=== PATIENT | female | born 1970 | race Caucasian/White ===

== ENCOUNTER 2016-05-28 22:54 | Emergency (ER) | payer SELFPAY ==
[2016-05-28] MEDS ORDERED: KETOROLAC TROMETHAMINE 60 MG/2 ML SDV IM ONE (23:16)
--- NOTE | 2016-05-28 23:24 | ER Document Report ---
HPI - HPI Patient complains to provider of: chronic hip pain Onset: Other - years Onset/Duration: Persistent, Waxing and waning Quality of pain: Achy Severity: Severe Pain Level: 5 Context: Patient presents with c/o of chronic hip pain, hurting bad today. Reports evaluated for hip fx in the past by MRI but was never told if it was fractured. Pt reports hip feels like it is locking up. Denies recent trauma. Denies f/v/d. Associated Symptoms: None Exacerbated by: Movement, Walking Relieved by: Denies Similar symptoms previously: Yes Recently seen / treated by doctor: No - REPRODUCTIVE Reproductive: DENIES: : Past Medical History - General Information source: Patient - Social History Smoking Status: Current Every Day Smoker Cigarette use (# per day): Yes - 1ppd Frequency of alcohol use: Social Drug Abuse: None Occupation: caregiver Lives with: Family Family History: Arthritis, CAD, CVA, DM, Hyperlipidemia, Hypertension, Malignancy, Thyroid Disfunction, Other - Kidney stones - Past Medical History Cardiac Medical History: Reports: Hx Hypertension Denies: Hx Congestive Heart Failure, Hx Heart Attack Pulmonary Medical History: Reports: Hx Asthma, Hx Bronchitis, Hx Pneumonia Denies: Hx COPD, Hx Tuberculosis Neurological Medical History: Reports: Hx Migraine. Denies: Hx Seizures Endocrine Medical History: Reports: Other - hypoglycemic Renal/ Medical History: Reports: Hx Kidney Stones, Hx Ovarian Cysts. Denies: Hx End Stage Renal Disease GI Medical History: Reports: Hx Diverticulitis, Hx Gastroesophageal Reflux Disease, Hx Irritable Bowel. Denies: Hx Cirrhosis, Hx Ulcer Musculoskeltal Medical History: Reports Hx Arthritis - back, Denies Hx Multiple Sclerosis, Reports Hx Musculoskeletal Trauma Skin Medical History: Reports Hx MRSA Psychiatric Medical History: Reports: Hx Anxiety, Hx Bipolar Disorder, Hx Depression, Hx Post Traumatic Stress Disorder Denies: Hx Schizophrenia Traumatic Medical History: Reports: Hx Fractures - hand Infectious Medical History: Reports: Hx MRSA Past Surgical History: Reports: Hx Abdominal Surgery, Hx Section - x 2 , Hx Cholecystectomy, Hx Dilation and Curettage, Hx Gynecologic Surgery - D & C , Hx Hysterectomy, Hx Tubal Ligation. Denies: Hx Pacemaker - Immunizations Immunizations up to date: Yes Hx Diphtheria, Pertussis, Tetanus Vaccination: Yes - 2011 Hx Pneumococcal Vaccination: 11/10/11 Vertical Provider Document - CONSTITUTIONAL Agree With Documented VS: Yes Exam Limitations: No Limitations General Appearance: WD/WN, Mild Distress - winces with hip movement - INFECTION CONTROL TRAVEL OUTSIDE OF THE [place] IN LAST 30 DAYS: No - HEENT HEENT: Atraumatic, Normocephalic - NECK Neck: Normal Inspection, Supple - RESPIRATORY Respiratory: Breath Sounds Normal, No Respiratory Distress - CARDIOVASCULAR Cardiovascular: Regular Rate - MUSCULOSKELETAL/EXTREMETIES Musculoskeletal/Extremeties: Tender - c/o right hip pain with movement, good pedal pulse, brisk cap refill - NEURO Level of Consciousness: Awake, Alert, Appropriate Motor/Sensory: No Motor Deficit - DERM Integumentary: Warm, Dry Discharge - Discharge Clinical Impression: Elevated blood pressure reading Chronic hip pain Qualifiers: Laterality: right Qualified Code(s): M25.551 - Pain in right hip Condition: Stable Disposition: HOME, SELF-CARE Instructions: Toradol Injection ([facility]), Use of [id number] Ibuprofen ([facility]) , [facility] Additional Instructions: *You have been evaluated for chronic hip pain *Take over the counter ibuprofen as indicated *Follow up with orthopedics for evaluation *Follow up with the [facility] within one week *Return to ED for worsening condition, changes, needs Forms: Elevated Blood Pressure
[2016-05-29 01:28] VITALS: BP 145/79
== END 2016-05-28 23:30 | disposition home or self-care (01) ==
LOC: ER 22:54
DX: G89.29 Other chronic pain (principal); M25.551 Pain in right hip; R03.0 Elevated blood-pressure reading, without diagnosis of hypertension; F17.210 Nicotine dependence, cigarettes, uncomplicated; I10 Essential (primary) hypertension; J45.909 Unspecified asthma, uncomplicated; Z87.442 Personal history of urinary calculi; Z86.14 Personal history of Methicillin resistant Staphylococcus aureus infection; Z90.49 Acquired absence of other specified parts of digestive tract; Z90.710 Acquired absence of both cervix and uterus
CPT/HCPCS: 99283; 96372; J1885

== ENCOUNTER 2016-06-12 14:03 | Emergency (ER) | payer SELFPAY ==
--- NOTE | 2016-06-12 14:17 | ER Document Report ---
ED Medical Screen (RME) - General Stated Complaint: BACK PAIN Notes: Patient denies recent injury. Seen in the emergency room last week for same. Complains of right hip pain that is causing her back and right lower leg to hurt. No bowel or bladder dysfunction. Patient states it feels like her right hip locks. I have greeted and performed a rapid initial assessment of this patient. A comprehensive ED assessment and evaluation of the patient, analysis of test results and completion of the medical decision making process will be conducted by additional ED providers. TRAVEL OUTSIDE OF THE [place] IN LAST 30 DAYS: No - Related Data Allergies/Adverse Reactions: cefazolin [Cefazolin] Allergy (Intermediate, Verified 06/12/16 14:16) Hives hydromorphone HCl [From Dilaudid] Allergy (Mild, Verified 06/12/16 14:16) Facial edema and rash Sulfa (Sulfonamide Antibiotics) Allergy (Mild, Verified 06/12/16 14:16) erythromycin base [Erythromycin Base] Allergy (Unknown, Verified 06/12/16 14:16) cephalexin [Cephalexin] Allergy (Verified 06/12/16 14:16) cortisone [Cortisone] Allergy (Verified 06/12/16 14:16) Penicillins Allergy (Verified 06/12/16 14:16) Past Medical History - Past Medical History Cardiac Medical History: Reports: Hx Hypertension Denies: Hx Congestive Heart Failure, Hx Heart Attack Pulmonary Medical History: Reports: Hx Asthma, Hx Bronchitis, Hx Pneumonia Denies: Hx COPD, Hx Tuberculosis Neurological Medical History: Reports: Hx Migraine. Denies: Hx Seizures Renal/ Medical History: Reports: Hx Kidney Stones, Hx Ovarian Cysts. Denies: Hx End Stage Renal Disease, Hx Peritoneal Dialysis GI Medical History: Reports: Hx Diverticulitis, Hx Gastroesophageal Reflux Disease, Hx Irritable Bowel. Denies: Hx Cirrhosis, Hx Ulcer Musculoskeltal Medical History: Reports Hx Arthritis - back, Denies Hx Multiple Sclerosis, Reports Hx Musculoskeletal Trauma Skin Medical History: Reports Hx MRSA Psychiatric Medical History: Reports: Hx Anxiety, Hx Bipolar Disorder, Hx Depression, Hx Post Traumatic Stress Disorder Denies: Hx Schizophrenia Traumatic Medical History: Reports: Hx Fractures - hand Infectious Medical History: Reports: Hx MRSA Past Surgical History: Reports: Hx Abdominal Surgery, Hx Section - x 2 , Hx Cholecystectomy, Hx Dilation and Curettage, Hx Gynecologic Surgery - D & C , Hx Hysterectomy, Hx Tubal Ligation. Denies: Hx Pacemaker - Immunizations Immunizations up to date: Yes Hx Diphtheria, Pertussis, Tetanus Vaccination: Yes - 2011 Physical Exam - Vital signs Vitals: Temp Pulse Resp BP Pulse Ox 97.8 F 90 18 144/92 H 96 06/12/16 14:07 06/12/16 14:07 06/12/16 14:07 06/12/16 14:07 06/12/16 14:07 - Back Back: Tender - lumbar area - Extremities Notes: Pain to right hip, increases with movement of leg. Course - Vital Signs Vital signs: Temp Pulse Resp BP Pulse Ox 97.8 F 90 18 144/92 H 96 06/12/16 14:07 06/12/16 14:07 06/12/16 14:07 06/12/16 14:07 06/12/16 14:07
[2016-06-12] MEDS ORDERED: KETOROLAC TROMETHAMINE 60 MG/2 ML SDV IM ONE (16:15)
[2016-06-12] MEDS ORDERED: TRAMADOL HCL 50 MG TABLET PO ONE (16:16)
[2016-06-12] MEDS ORDERED: DIPHENHYDRAMINE HCL 50 MG/ML VIAL IM ONE (16:34)
--- NOTE | 2016-06-12 16:34 | ER Document Report ---
ED Hip Pain/Injury - General Chief Complaint: Hip Pain Stated Complaint: BACK PAIN Notes: Patient is here complaining of pain in her right hip and lower back. She says that she is had back pain intermittently since she fell in the year 2013. Over the past 2-3 months, the pain has become more frequent and more painful. She says that the right hip "locks up on her and that the right leg will give way if she doesn't get her balance on that leg when she stands up to walk. She describes her entire right foot going numb and at times, both legs go numb over the past couple of months. She's been taking Tylenol and ibuprofen without pain relief. Denies any fevers. No recent injuries. She's been seen here several times in the recent couple of months, most recently about a week ago. She has not been to an orthopedic doctor for evaluation. She goes to the [facility] and is scheduled there on June 25. Patient was seen in this ED for various painful conditions 12 times in the year 2015. Several of these visits were for hip pain and back pain. TRAVEL OUTSIDE OF THE [place] IN LAST 30 DAYS: No - Related Data Allergies/Adverse Reactions: cefazolin [Cefazolin] Allergy (Intermediate, Verified 06/12/16 14:16) Hives hydromorphone HCl [From Dilaudid] Allergy (Mild, Verified 06/12/16 14:16) Facial edema and rash Sulfa (Sulfonamide Antibiotics) Allergy (Mild, Verified 06/12/16 14:16) erythromycin base [Erythromycin Base] Allergy (Unknown, Verified 06/12/16 14:16) cephalexin [Cephalexin] Allergy (Verified 06/12/16 14:16) cortisone [Cortisone] Allergy (Verified 06/12/16 14:16) Penicillins Allergy (Verified 06/12/16 14:16) Past Medical History - Social History Smoking Status: Current Every Day Smoker Chew tobacco use (# tins/day): No Frequency of alcohol use: Rare Drug Abuse: None Family History: Arthritis, CAD, CVA, DM, Hyperlipidemia, Hypertension, Malignancy, Thyroid Disfunction, Other - Kidney stones Patient has suicidal ideation: No Patient has homicidal ideation: No - Past Medical History Cardiac Medical History: Reports: Hx Hypertension Pulmonary Medical History: Reports: Hx Asthma, Hx Bronchitis, Hx Pneumonia Neurological Medical History: Reports: Hx Migraine Renal/ Medical History: Reports: Hx Kidney Stones, Hx Ovarian Cysts GI Medical History: Reports: Hx Diverticulitis, Hx Gastroesophageal Reflux Disease, Hx Irritable Bowel Musculoskeltal Medical History: Reports Hx Arthritis - back, Reports Hx Musculoskeletal Trauma Skin Medical History: Reports Hx MRSA Psychiatric Medical History: Reports: Hx Anxiety, Hx Bipolar Disorder, Hx Depression, Hx Post Traumatic Stress Disorder Traumatic Medical History: Reports: Hx Fractures - hand Infectious Medical History: Reports: Hx MRSA Past Surgical History: Reports: Hx Abdominal Surgery, Hx Section - x 2 , Hx Cholecystectomy, Hx Dilation and Curettage, Hx Gynecologic Surgery - D & C , Hx Hysterectomy, Hx Tubal Ligation - Immunizations Immunizations up to date: Yes Hx Diphtheria, Pertussis, Tetanus Vaccination: Yes - 2011 Hx Pneumococcal Vaccination: 11/10/11 Review of Systems - Review of Systems Notes: REVIEW OF SYSTEMS: CONSTITUTIONAL : Denies fever. EENT: Denies eye, ear, nose or mouth or throat pain or other symptoms. CARDIOVASCULAR: Denies chest pain. RESPIRATORY: Denies cough, chest congestion, or shortness of breath. GASTROINTESTINAL: Denies abdominal pain or nausea, vomiting, or diarrhea. GENITOURINARY: Denies difficulty or painful urinating, urinary frequency, blood in urine. MUSCULOSKELETAL: See history of present illness. SKIN: Denies rash or skin lesions. NEUROLOGICAL: Denies LOC or altered mental status. Denies headache. Denies sensory loss or motor deficits. ALL OTHER SYSTEMS REVIEWED AND NEGATIVE. Constitutional: denies: Fever Physical Exam - Vital signs Vitals: Temp Pulse Resp BP Pulse Ox 97.8 F 90 18 144/92 H 96 06/12/16 14:07 06/12/16 14:07 06/12/16 14:07 06/12/16 14:07 06/12/16 14:07 Interpretation: Normal - Notes Notes: PHYSICAL EXAMINATION: GENERAL: Well-appearing, in no acute distress. Weighs 154 kg. HEAD: Atraumatic, normocephalic. EYES: Pupils equal round and reactive to light, extraocular movements intact. ENT: oropharynx clear without exudates. Moist mucous membranes. NECK: Normal range of motion, supple. LUNGS: Breath sounds clear and equal bilaterally. HEART: Regular rate and rhythm without murmurs. ABDOMEN: Soft, nontender. No guarding or rebound. BACK: No tenderness throughout entire back. EXTREMITIES: Painful to flex and internally and externally rotate the right hip. NEUROLOGICAL: Normal speech, limping gait. Normal sensory, motor, and reflex exams. Awake, alert, and oriented x3. Cranial nerves normal. SKIN: Warm, dry, no rashes. Course - Re-evaluation Re-evalutation: 06/12/16 16:43 Patient was asked about allergies and she went through a lengthy list of medications including several antibiotics, cephalosporin, penicillin, erythromycin, sulfa, and also Dilaudid and injectable cortisone. I told her I was going to give her an injection of Toradol and she did not question that plan. About 5 minutes after receiving the injection of Toradol, she began to say that she was itching all over and started scratching all over. However, on examination, the patient does not have any wheezes of either lung field and does not have any visible rash, just redness where she has scratched. No hives are present. - Vital Signs Vital signs: Temp Pulse Resp BP Pulse Ox 97.8 F 90 18 144/92 H 96 06/12/16 14:07 06/12/16 14:07 06/12/16 14:07 06/12/16 14:07 06/12/16 14:07 - Diagnostic Test Radiology reviewed: Image reviewed, Reports reviewed - X-rays of the patient's lumbar spine and right hip show degenerative changes and other changes of arthritis. Discharge - Discharge Clinical Impression: Right hip pain, Arthritis Condition: Stable Disposition: HOME, SELF-CARE Additional Instructions: Arthritis right hip: Your symptoms are due to arthritis. Arthritis is an inflammation of the joints. There are many types -- osteoarthritis (due to "wear and tear"), auto- immmune arthritis (such as rheumatoid, lupus, Francesco's, and others), and crystal -induced arthritis (such as gout and pseudogout). The physician's examination, combined with laboratory tests, will determine the cause of your arthritis. All types of arthritis are treated with antiinflammatory medications. Other medication may be required for special types of arthritis, or if your problem does not respond to the antiinflammatory medicine. Local warmth may be helpful. Move the involved joints through the full range of motion daily. Mild exercise is usually still possible for most persons with arthritis (ask your physician). Swimming provides good exercise without damaging the joints. Contact the physician if you are worsening in any way. MUSCLE STRAIN: You have strained a muscle -- torn the fibers within the muscle. This often occurs with strenuous exertion, or during an injury that suddenly stretches the muscle. The seriousness of a strain varies. Some strains heal within days, others cause problems for months. X-rays cannot show a muscle strain. X-rays are taken only if symptoms suggest that a fracture could be present. The usual treatment of a muscle strain is rest and ice packs. Sometimes, a sling, splint, or crutches may be necessary to rest the muscle. The muscle can be used again once pain subsides. Severe strains require a special exercise and stretching program to prevent permanent stiffness and disability. Your doctor will advise you if this will be necessary. Call the doctor immediately if pain or swelling becomes severe, or if numbness or discoloration develop. LOW BACK PAIN: Three out of every four people will have an episode of disabling back pain during their lifetime. Most commonly the pain is due to straining of the muscles and ligaments in the low back. Usual treatment includes: (1) Rest on a firm surface. Avoid lying on your stomach. (2) Ice pack the painful area. After a few days, gentle heat may be used intermittently to relax the area, or ice packs can be continued. (3) Medication may be needed -- muscle relaxers and antiinflammatory medicines are commonly used. (4) As the back improves, exercises are prescribed to strengthen the back and abdominal muscles. Your doctor will advise you on the proper care for your back at each stage in your recovery. You may be better in a few days -- or healing may take several weeks. If new symptoms of a "herniated disc" (radiation of pain, numbness, or tingling down the back of the leg or weakness in the leg) occur, you should be re-examined. Further testing may be necessary. MUSCLE RELAXERS: Muscle relaxing medications are usually prescribed for acute muscle spasm or injury to the neck and back. They are often combined with antiinflammatory pain medication for increased relief. You may stop the muscle relaxer when the pain and stiffness have improved. Start the medication again if spasms recur. Muscle relaxers may cause drowsiness, especially with the first dose. Do not operate machinery or drive while under the effects of the medication. Most muscle relaxers last up to 24 hours. Do not combine the medication with alcohol. Ibuprofen Ibuprofen is an excellent, safe drug for pain control. In addition, it has potent antiinflammatory effects which are beneficial, especially in the treatment of injuries, arthritis, or tendonitis. It's best to take ibuprofen with food. Persons with ulcer disease or allergy to aspirin should notify their physician of this before taking ibuprofen. Take the medication exactly as prescribed. Don't take additional doses unless instructed to do so by your doctor. If you develop wheezing, shortness of breath, hives, faintness, stomach pain, vomiting, or dark black stools, return for re-evaluation at once. USE OF ACETAMINOPHEN (Tylenol): Acetaminophen may be taken for pain relief or fever control. It's much safer than aspirin, offering a wider range of "safe" dosages. It is safe during . Some brand names are Tylenol, Panadol, Datril, Anacin 3, Tempra, and Liquiprin. Acetaminophen can be repeated every four hours. The following are maximum recommended dosages: WEIGHT Dose Drops Elixir Chewable( 80mg) (LBS.) drprs=droppers tsp=teaspoon >89 pounds or adults 650 mg to 900 mg Acetaminophen can be repeated every four hours. Maximum dose not to exceed 4000 mg a day. These maximum recommended dosages are slightly higher than the dosages written on the product container, but these dosages are very safe and below the toxic dosage for acetaminophen. Ultram Ultram is an excellent drug for pain relief. It is not a narcotic, but it works in a similar way. Ultram can take up to two hours for full effect. Although not addicting, Ultram is best avoided in patients with a history of drug abuse. Ultram should not be used with alcohol, sleeping pills, or narcotics. If you're prone to seizures, Ultram can make you more likely to have a seizure. Ultram can be hazardous when combined with MAO-inhibitor antidepressants (such as Nardil or Parnate). Be sure your doctor is aware of all medicines you are taking. Persons with severe liver or kidney disease should increase the time between doses of Ultram. Discuss this with your doctor if you're uncertain. Side effects of Ultram can include dizziness, nausea, constipation, sleepiness, and itching. (These side effects are also seen with narcotic pain medicines.) Please call your doctor if you have other disturbing effects. FOLLOW-UP CARE: If you have been referred to a physician for follow-up care, call the physician s office for an appointment as you were instructed or within the next two days. If you experience worsening or a significant change in your symptoms, notify the physician immediately or return to the Emergency Department at any time for re-evaluation. Keep your appointment at the [facility] on June 25, and hopefully they can refer you to see an orthopedic doctor. Prescriptions: Tramadol HCl [Ultram 50 mg Tablet] 50 mg PO Q4HP PRN #15 tab PRN Reason: Methocarbamol [Robaxin 500 mg Tablet] 1,000 mg PO QID #60 tablet Referrals: [facility] [Provider Group] - 06/25/16
[2016-06-12] MEDS ORDERED: DIPHENHYDRAMINE HCL 25 MG CAPSULE PO ONE (16:36)
[2016-06-12 17:18] VITALS: BP 150/90
== END 2016-06-12 17:17 | disposition home or self-care (01) ==
LOC: ER 14:03
DX: M13.851 Other specified arthritis, right hip (principal); M25.551 Pain in right hip; M54.5 Low back pain; F17.200 Nicotine dependence, unspecified, uncomplicated
CPT/HCPCS: 99283; 96372; 73502; 72110; J1200; J1885

== ENCOUNTER 2016-07-06 20:47 | Emergency (ER) | payer SELFPAY ==
[2016-07-06 20:59] VITALS: BP 137/78
== END 2016-07-06 22:30 | disposition left against medical advice (07) ==
LOC: ER 20:47
DX: Z53.21 Procedure and treatment not carried out due to patient leaving prior to being seen by health care provider (principal)

== ENCOUNTER 2016-07-22 18:47 | Emergency (ER) | payer SELFPAY ==
[2016-07-22] MEDS ORDERED: CLINDAMYCIN HCL 150 MG CAPSULE PO ONE (19:55)
[2016-07-22] MEDS ORDERED: DEXAMETHASONE SOD PHOS INJ 10 MG/1 ML VIAL IV ONE (19:55)
[2016-07-22] MEDS ORDERED: TRAMADOL HCL 50 MG TABLET PO ONE (19:57)
--- NOTE | 2016-07-22 20:23 | ER Document Report ---
ED Oral Problem - General Chief Complaint: Sore Throat Stated Complaint: SORE THROAT,FEVER Mode of Arrival: Ambulatory Information source: Patient TRAVEL OUTSIDE OF THE [place] IN LAST 30 DAYS: No - HPI Patient complains to provider of: Sore throat Onset: This morning Notes: Patient arrives with complaints of sore throat that started this morning. She states that she's noticed some white patches in the back of her throat as well. She felt like she's had a fever. She does complain of some mild nasal congestion and cough. No nausea, vomiting, diarrhea. No difficulty breathing or swallowing. No rash. No neck stiffness. No headache, blurred vision, unilateral numbness tingling or weakness. No other complaints at this time. Pain is worse with swallowing, nothing makes it better. - Related Data Allergies/Adverse Reactions: cefazolin [Cefazolin] Allergy (Intermediate, Verified 07/22/16 19:27) Hives hydromorphone HCl [From Dilaudid] Allergy (Mild, Verified 07/22/16 19:27) Facial edema and rash Sulfa (Sulfonamide Antibiotics) Allergy (Mild, Verified 07/22/16 19:27) erythromycin base [Erythromycin Base] Allergy (Unknown, Verified 07/22/16 19:27) cephalexin [Cephalexin] Allergy (Verified 07/22/16 19:27) cortisone [Cortisone] Allergy (Verified 07/22/16 19:27) Penicillins Allergy (Verified 07/22/16 19:27) Past Medical History - Social History Smoking Status: Current Every Day Smoker Chew tobacco use (# tins/day): No Frequency of alcohol use: None Drug Abuse: None Family History: Arthritis, CAD, CVA, DM, Hyperlipidemia, Hypertension, Malignancy, Thyroid Disfunction, Other - Kidney stones - Past Medical History Cardiac Medical History: Reports: Hx Hypertension Denies: Hx Congestive Heart Failure, Hx Heart Attack Pulmonary Medical History: Reports: Hx Asthma, Hx Bronchitis, Hx Pneumonia Denies: Hx COPD, Hx Tuberculosis Neurological Medical History: Reports: Hx Migraine. Denies: Hx Seizures Renal/ Medical History: Reports: Hx Kidney Stones, Hx Ovarian Cysts. Denies: Hx End Stage Renal Disease, Hx Peritoneal Dialysis GI Medical History: Reports: Hx Diverticulitis, Hx Gastroesophageal Reflux Disease, Hx Irritable Bowel. Denies: Hx Cirrhosis, Hx Ulcer Musculoskeltal Medical History: Reports Hx Arthritis - back, Denies Hx Multiple Sclerosis, Reports Hx Musculoskeletal Trauma Skin Medical History: Reports Hx MRSA Psychiatric Medical History: Reports: Hx Anxiety, Hx Bipolar Disorder, Hx Depression, Hx Post Traumatic Stress Disorder Denies: Hx Schizophrenia Traumatic Medical History: Reports: Hx Fractures - hand Infectious Medical History: Reports: Hx MRSA Past Surgical History: Reports: Hx Abdominal Surgery, Hx Section - x 2 , Hx Cholecystectomy, Hx Dilation and Curettage, Hx Gynecologic Surgery - D & C , Hx Hysterectomy, Hx Tubal Ligation. Denies: Hx Pacemaker - Immunizations Immunizations up to date: Yes Hx Diphtheria, Pertussis, Tetanus Vaccination: Yes - 2011 Hx Pneumococcal Vaccination: 11/10/11 Review of Systems - Review of Systems -: Yes All other systems reviewed and negative Physical Exam - Vital signs Vitals: Temp Pulse Resp BP Pulse Ox 99.3 F 88 20 134/80 H 97 07/22/16 19:29 07/22/16 19:29 07/22/16 19:29 07/22/16 19:29 07/22/16 19:29 - Notes Notes: GENERAL: alert, cooperative, nontoxic, no distress. HEAD: normocephalic, atraumatic EYES: conjunctiva pink without discharge, no external redness or swelling. EARS: no external swelling, no external redness NOSE: atraumatic, no external swelling MOUTH/THROAT: mucous membranes moist and pink, posterior pharynx with erythema, exudate and a few petechiae. No trismus or drooling. NECK: soft, supple, full range of motion, no meningismus. No stridor. CHEST: no distress, lungs clear and equal throughout. No wheezing, rales, rhonchi. CARDIAC: regular rate and rhythm, no murmur, normal capillary refill, normal pulses. No peripheral edema noted. ABDOMEN: Soft, nontender. BACK: full range of motion, no CVA tenderness. EXTREMITIES: full range of motion of all extremities. No redness, no swelling. NEURO: alert and oriented x 3, no focal deficits, full range of motion of all extremities. PYSCH: appropriate mood, affect. Patient is cooperative. SKIN: pink, warm, dry, no rash. Course - Re-evaluation Re-evalutation: 07/22/16 20:23 Patient is nontoxic and stable vitals. Patient has exudative pharyngitis. She has no sign of peritonsillar abscess. She is in no distress. She swelling without significant difficulty. She will be given a dose of Decadron. She states that she is allergic to prednisone but it just makes her itchy and she was willing to try the Decadron. The patient will be given a dose of clindamycin and will be discharged home on Clinda, NSAIDs, Ultram. Follow up if not better in 3 days, sooner for increased pain, fever, difficult to breathing or swallowing, or any further concerns. The patient is noted to have elevated blood pressure during today's emergency department visit. The patient was informed of this finding. The patient was instructed that this may be related to pre-hypertension and requires further evaluation with a primary care provider. The patient has no hypertensive symptoms at this time. The patient's emergency department workup and current diagnosis were explained to the patient and or family. Follow-up instructions were provided. Medications if prescribed were discussed. Instructions for when to return to the emergency department including specific worrisome symptoms were discussed with the patient and/or family. - Vital Signs Vital signs: Temp Pulse Resp BP Pulse Ox 99.3 F 88 20 134/80 H 97 07/22/16 19:29 07/22/16 19:29 07/22/16 19:29 07/22/16 19:29 07/22/16 19:29 Discharge - Discharge Clinical Impression: Exudative pharyngitis Condition: Stable Disposition: HOME, SELF-CARE Instructions: Strep Throat ([facility]) Additional Instructions: Take medications as prescribed. Drink plenty of fluids. Follow-up if not better in 3-5 days, sooner for increased pain, fever, difficulty breathing or swallowing, or any further concerns. Your blood pressure was elevated during today's visit. Have this rechecked with your doctor. Prescriptions: Clindamycin HCl 300 mg PO QID #40 capsule Naproxen 500 mg PO BID #20 tablet Tramadol HCl [Ultram] 50 mg PO TID PRN #10 tablet PRN Reason: Forms: Elevated Blood Pressure
[2016-07-22] MEDS ORDERED: DIPHENHYDRAMINE HCL 50 MG/ML VIAL IM ONE (20:56)
[2016-07-22 21:19] VITALS: BP 134/87
== END 2016-07-22 21:17 | disposition home or self-care (01) ==
LOC: ER 18:47
DX: J02.9 Acute pharyngitis, unspecified (principal); L29.9 Pruritus, unspecified; F17.200 Nicotine dependence, unspecified, uncomplicated; Z88.2 Allergy status to sulfonamides; Z88.3 Allergy status to other anti-infective agents; Z88.0 Allergy status to penicillin; Z87.442 Personal history of urinary calculi; Z86.14 Personal history of Methicillin resistant Staphylococcus aureus infection; Z90.49 Acquired absence of other specified parts of digestive tract; Z90.710 Acquired absence of both cervix and uterus
CPT/HCPCS: 99282; 96372; 96374; J1200; J1100

== ENCOUNTER 2016-07-24 17:15 | Emergency (ER) | payer SELFPAY ==
[2016-07-24 17:30] VITALS: BP 152/89
[2016-07-24] MEDS ORDERED: IBUPROFEN 800 MG TABLET PO ONE (17:59)
--- NOTE | 2016-07-24 18:05 | ER Document Report ---
HPI - HPI Patient complains to provider of: sore throat Onset: Other Onset/Duration: Persistent Quality of pain: Burning Severity: Severe Pain Level: 5 Context: Patient diagnosed with strep throat on Saturday, is currently taking clindamycin. States she is having ear pain and sinus congestion and feels like her throat is getting worse. Associated Symptoms: Earache, Sore throat, Other - Sinus congestion. denies: Fever Exacerbated by: Denies Relieved by: Denies Similar symptoms previously: Yes Recently seen / treated by doctor: Yes - ROS ROS below otherwise negative: Yes Systems Reviewed and Negative: Yes All other systems reviewed and negative - CONSTITUTIONAL Constitutional: DENIES: Fever - EENT EENT: REPORTS: Sore Throat, Ear Pain, Congestion - NEURO Neurology: DENIES: Headache - CARDIOVASCULAR Cardiovascular: DENIES: Chest pain - RESPIRATORY Respiratory: DENIES: Trouble Breathing - GASTROINTESTINAL Gastrointestinal: DENIES: Abdominal Pain - URINARY Urinary: DENIES: Dysuria - REPRODUCTIVE LMP: n/a Reproductive: DENIES: : - MUSCULOSKELETAL Musculoskeletal: DENIES: Extremity pain - DERM Skin Color: Normal Skin Problems: None Past Medical History - General Information source: Patient - Social History Smoking Status: Current Every Day Smoker Frequency of alcohol use: Occasional Drug Abuse: None Lives with: Family Family History: Arthritis, CAD, CVA, DM, Hyperlipidemia, Hypertension, Malignancy, Thyroid Disfunction, Other - Kidney stones Patient has suicidal ideation: No Patient has homicidal ideation: No - Past Medical History Cardiac Medical History: Reports: Hx Hypertension Pulmonary Medical History: Reports: Hx Asthma, Hx Bronchitis, Hx Pneumonia Neurological Medical History: Reports: Hx Migraine Renal/ Medical History: Reports: Hx Kidney Stones, Hx Ovarian Cysts GI Medical History: Reports: Hx Diverticulitis, Hx Gastroesophageal Reflux Disease, Hx Irritable Bowel Musculoskeltal Medical History: Reports Hx Arthritis - back, Reports Hx Musculoskeletal Trauma Skin Medical History: Reports Hx MRSA Psychiatric Medical History: Reports: Hx Anxiety, Hx Bipolar Disorder, Hx Depression, Hx Post Traumatic Stress Disorder Traumatic Medical History: Reports: Hx Fractures - hand Infectious Medical History: Reports: Hx MRSA Past Surgical History: Reports: Hx Abdominal Surgery, Hx Section - x 2 , Hx Cholecystectomy, Hx Dilation and Curettage, Hx Gynecologic Surgery - D & C , Hx Hysterectomy, Hx Tubal Ligation - Immunizations Immunizations up to date: Yes Hx Diphtheria, Pertussis, Tetanus Vaccination: Yes - 2011 Hx Pneumococcal Vaccination: 11/10/11 Vertical Provider Document - CONSTITUTIONAL Agree With Documented VS: Yes Exam Limitations: No Limitations General Appearance: WD/WN, No Apparent Distress - INFECTION CONTROL TRAVEL OUTSIDE OF THE [place] IN LAST 30 DAYS: No - HEENT HEENT: Atraumatic, Normocephalic, PERRLA, Pharyngeal Exudate - Right tonsil, Pharyngeal Erythema Notes: TMs with fluid bilaterally. - NECK Neck: Normal Inspection, Supple. negative: Lymphadenopathy-Left, Lymphadenopathy-Right - RESPIRATORY Respiratory: Breath Sounds Normal, No Respiratory Distress O2 Sat by Pulse Oximetry: 96 - CARDIOVASCULAR Cardiovascular: Regular Rate, Regular Rhythm - GI/ABDOMEN Gastrointestinal: Abdomen Soft, Abdomen Non-Tender - MUSCULOSKELETAL/EXTREMETIES Musculoskeletal/Extremeties: EDY CARIAS - NEURO Level of Consciousness: Awake, Alert, Appropriate - DERM Integumentary: Warm, Dry, No Rash Course - Re-evaluation Re-evalutation: 07/24/16 18:35 X-ray soft tissue of neck negative and discussed with patient. - Vital Signs Vital signs: Temp Pulse Resp BP Pulse Ox 97.6 F 89 18 152/89 H 96 07/24/16 17:29 07/24/16 17:29 07/24/16 17:29 07/24/16 17:29 07/24/16 17:29 Discharge - Discharge Clinical Impression: Sore throat Bilateral serous otitis media Qualifiers: Chronicity: unspecified Qualified Code(s): H65.93 - Unspecified nonsuppurative otitis media, bilateral Condition: Good Disposition: HOME, SELF-CARE Additional Instructions: Continue the clindamycin that you previously prescribed Tylenol or Motrin for sore throat and ear pain. Lozenges or warm salt water gargles Appx-[id number] decongestants for fluid in the ears Follow-up with your doctor next week for recheck and return as needed
== END 2016-07-24 19:00 | disposition home or self-care (01) ==
LOC: ER 17:15
DX: J02.0 Streptococcal pharyngitis (principal); H65.93 Unspecified nonsuppurative otitis media, bilateral; I10 Essential (primary) hypertension; J45.909 Unspecified asthma, uncomplicated; F17.200 Nicotine dependence, unspecified, uncomplicated; Z86.14 Personal history of Methicillin resistant Staphylococcus aureus infection
CPT/HCPCS: 70360; 99283

== ENCOUNTER 2016-08-26 19:45 | Emergency (ER) | payer SELFPAY ==
[2016-08-26 20:16] VITALS: BP 141/83
== END 2016-08-26 22:50 | disposition left against medical advice (07) ==
LOC: ER 19:45
DX: Z53.21 Procedure and treatment not carried out due to patient leaving prior to being seen by health care provider (principal)

== ENCOUNTER 2016-08-29 11:58 | Emergency (ER) | payer SELFPAY ==
[2016-08-29 12:50] LABS: APPEARANCE,URINE CLEAR; BILIRUBIN,URINE NEGATIVE (NEGATIVE); GLUCOSE, URINE NEGATIVE (NEGATIVE); KETONES,URINE NEGATIVE (NEGATIVE); LEUKOCYTE ESTERASE,URINE NEGATIVE (NEGATIVE); NITRITE,URINE NEGATIVE (NEGATIVE); PROTEIN,URINE NEGATIVE (NEGATIVE); URINE SPECIFIC GRAVITY 1.006; UROBILINOGEN,URINE NEGATIVE mg/dL (<2.0)
--- NOTE | 2016-08-29 12:53 | ER Document Report ---
ED Medical Screen (RME) - General Chief Complaint: Flank Pain Stated Complaint: ABDOMINAL PAIN,FEVER,VOMITING Time Seen by Provider: 08/29/16 12:51 Notes: Patient is a 46-year-old female, past medical history anxiety, depression, hysterectomy, prior kidney stones, diverticulosis, presents with 1 week of worsening right lower quadrant abdominal pain. She is also having nausea, vomiting and diarrhea. No sick contacts. PE: Uncomfortable. RRR. RLQ abdominal tenderness. Normal bowel sounds. I have greeted and performed a rapid initial assessment of this patient. A comprehensive ED assessment and evaluation of the patient, analysis of test results and completion of the medical decision making process will be conducted by additional ED providers. TRAVEL OUTSIDE OF THE [place] IN LAST 30 DAYS: No - Related Data Allergies/Adverse Reactions: cefazolin [Cefazolin] Allergy (Intermediate, Verified 08/29/16 12:51) Hives hydromorphone HCl [From Dilaudid] Allergy (Mild, Verified 08/29/16 12:51) Facial edema and rash Sulfa (Sulfonamide Antibiotics) Allergy (Mild, Verified 08/29/16 12:51) erythromycin base [Erythromycin Base] Allergy (Unknown, Verified 08/29/16 12:51) cephalexin [Cephalexin] Allergy (Verified 08/29/16 12:51) cortisone [Cortisone] Allergy (Verified 08/29/16 12:51) Penicillins Allergy (Verified 08/29/16 12:51) Past Medical History - Past Medical History Cardiac Medical History: Reports: Hx Hypertension Denies: Hx Congestive Heart Failure, Hx Heart Attack Pulmonary Medical History: Reports: Hx Asthma, Hx Bronchitis, Hx Pneumonia Denies: Hx COPD, Hx Tuberculosis Neurological Medical History: Reports: Hx Migraine. Denies: Hx Seizures Renal/ Medical History: Reports: Hx Kidney Stones, Hx Ovarian Cysts. Denies: Hx End Stage Renal Disease, Hx Peritoneal Dialysis GI Medical History: Reports: Hx Diverticulitis, Hx Gastroesophageal Reflux Disease, Hx Irritable Bowel. Denies: Hx Cirrhosis, Hx Ulcer Musculoskeltal Medical History: Reports Hx Arthritis - back, Denies Hx Multiple Sclerosis, Reports Hx Musculoskeletal Trauma Skin Medical History: Reports Hx MRSA Psychiatric Medical History: Reports: Hx Anxiety, Hx Bipolar Disorder, Hx Depression, Hx Post Traumatic Stress Disorder Denies: Hx Schizophrenia Traumatic Medical History: Reports: Hx Fractures - hand Infectious Medical History: Reports: Hx MRSA Past Surgical History: Reports: Hx Abdominal Surgery, Hx Section - x 2 , Hx Cholecystectomy, Hx Dilation and Curettage, Hx Gynecologic Surgery - D & C , Hx Hysterectomy, Hx Tubal Ligation. Denies: Hx Pacemaker - Immunizations Immunizations up to date: Yes Hx Diphtheria, Pertussis, Tetanus Vaccination: Yes - 2011 Physical Exam - Vital signs Vitals: Temp Pulse Resp BP Pulse Ox 97.6 F 86 22 H 135/83 H 97 08/29/16 12:14 08/29/16 12:14 08/29/16 12:14 08/29/16 12:14 08/29/16 12:14 Course - Vital Signs Vital signs: Temp Pulse Resp BP Pulse Ox 97.6 F 86 22 H 135/83 H 97 08/29/16 12:14 08/29/16 12:14 08/29/16 12:14 08/29/16 12:14 08/29/16 12:14
[2016-08-29] MEDS ORDERED: ONDANSETRON 4 MG TAB.RAPDIS PO ONE (13:01)
[2016-08-29] MEDS ORDERED: IBUPROFEN 600 MG TABLET PO ONE (13:01)
[2016-08-29] MEDS ORDERED: HYDROCODONE/ACETAMINOPHEN 5-325 MG TABLET PO ONE (13:01)
--- NOTE | 2016-08-29 13:06 | ER Document Report ---
ED General - General Mode of Arrival: Ambulatory Information source: Patient TRAVEL OUTSIDE OF THE [place] IN LAST 30 DAYS: No - HPI Patient complains to provider of: Abdominal Pain Onset: Last week Onset/Duration: Sudden, Persistent Associated symptoms: Diarrhea, Nausea, Vomiting <CHASIDY HENRY - Last Filed: 08/29/16 14:01> <ZACKARY GUZMAN - Last Filed: 08/29/16 15:10> - General Stated Complaint: ABDOMINAL PAIN,FEVER,VOMITING Time Seen by Provider: 08/29/16 12:51 Notes: Patient is a 46-year-old female presenting to the emergency department with concerns of one week of right lower quadrant abdominal pain. Patient also admits to nausea, vomiting, diarrhea. Patient was seen here in the emergency department 3 days ago, left without being seen. Patient has been seen here 7 times in the past year for abdominal pain with nothing found, left without being seen 3 of those times. (CHASIDY HENRY) - Related Data Allergies/Adverse Reactions: cefazolin [Cefazolin] Allergy (Intermediate, Verified 08/29/16 12:51) Hives hydromorphone HCl [From Dilaudid] Allergy (Mild, Verified 08/29/16 12:51) Facial edema and rash Sulfa (Sulfonamide Antibiotics) Allergy (Mild, Verified 08/29/16 12:51) erythromycin base [Erythromycin Base] Allergy (Unknown, Verified 08/29/16 12:51) cephalexin [Cephalexin] Allergy (Verified 08/29/16 12:51) cortisone [Cortisone] Allergy (Verified 08/29/16 12:51) Penicillins Allergy (Verified 08/29/16 12:51) Past Medical History - General Information source: Patient - Social History Smoking Status: Current Every Day Smoker Chew tobacco use (# tins/day): No Frequency of alcohol use: Rare Drug Abuse: None Family History: Reviewed & Not Pertinent, Arthritis, CAD, CVA, DM, Hyperlipidemia, Hypertension, Malignancy, Thyroid Disfunction, Other - Kidney stones Patient has suicidal ideation: No Patient has homicidal ideation: No - Past Medical History Cardiac Medical History: Reports: Hx Hypertension Pulmonary Medical History: Reports: Hx Asthma, Hx Bronchitis, Hx Pneumonia Neurological Medical History: Reports: Hx Migraine Renal/ Medical History: Reports: Hx Kidney Stones, Hx Ovarian Cysts GI Medical History: Reports: Hx Diverticulitis, Hx Gastroesophageal Reflux Disease, Hx Irritable Bowel Musculoskeltal Medical History: Reports Hx Arthritis - back, Reports Hx Musculoskeletal Trauma Skin Medical History: Reports Hx MRSA Psychiatric Medical History: Reports: Hx Anxiety, Hx Bipolar Disorder, Hx Depression, Hx Post Traumatic Stress Disorder Traumatic Medical History: Reports: Hx Fractures - hand Infectious Medical History: Reports: Hx MRSA Past Surgical History: Reports: Hx Abdominal Surgery, Hx Section - x 2 , Hx Cholecystectomy, Hx Dilation and Curettage, Hx Gynecologic Surgery - D & C , Hx Hysterectomy, Hx Tubal Ligation - Immunizations Immunizations up to date: Yes Hx Diphtheria, Pertussis, Tetanus Vaccination: Yes - 2011 Hx Pneumococcal Vaccination: 11/10/11 <CHASIDY HENRY - Last Filed: 08/29/16 14:01> Review of Systems - Review of Systems Constitutional: No symptoms reported EENT: No symptoms reported Cardiovascular: No symptoms reported Respiratory: No symptoms reported Gastrointestinal: See HPI, Abdominal pain, Diarrhea, Nausea, Vomiting Genitourinary: No symptoms reported Female Genitourinary: No symptoms reported Musculoskeletal: No symptoms reported Skin: No symptoms reported Hematologic/Lymphatic: No symptoms reported Neurological/Psychological: No symptoms reported -: Yes All other systems reviewed and negative <CHASIDY HENRY - Last Filed: 08/29/16 14:01> Physical Exam - Vital signs Interpretation: Normal - General General appearance: Alert - HEENT Head: Normocephalic, Atraumatic Eyes: Normal Pupils: PERRL - Respiratory Respiratory status: No respiratory distress Chest status: Nontender Breath sounds: Normal Chest palpation: Normal - Cardiovascular Rhythm: Regular Heart sounds: Normal auscultation Murmur: No - Abdominal Inspection: Morbidly Obese Bowel sounds: Normal Tenderness: Tender - RLQ tenderness to palpation, at first patient reacted when palpating LLQ, but did not the second time palpated. - Back Back: Normal, Nontender - Extremities General upper extremity: Normal inspection, Nontender. No: Edema General lower extremity: Normal inspection, Nontender. No: Edema - Neurological Neuro grossly intact: Yes Cognition: Normal Orientation: AAOx4 Mingus Coma Scale Eye Opening: Spontaneous Mingus Coma Scale Verbal: Oriented Mingus Coma Scale Motor: Obeys Commands Esau Coma Scale Total: 15 Speech: Normal - Psychological Associated symptoms: Normal affect, Normal mood - Skin Skin Temperature: Warm Skin Moisture: Dry Skin Color: Normal <CHASIDY HENRY - Last Filed: 08/29/16 14:01> Course - Laboratory Result Diagrams: 08/29/16 12:54 08/29/16 12:54 <CHASIDY HENRY - Last Filed: 08/29/16 14:01> - Laboratory Result Diagrams: 08/29/16 12:54 08/29/16 12:54 - Diagnostic Test Radiology reviewed: Image reviewed, Reports reviewed - Noncontrast CT scan of the abdomen and pelvis does not show any abnormalities. <ZACKARY GUZMAN - Last Filed: 08/29/16 15:10> - Vital Signs Vital signs: Temp Pulse Resp BP Pulse Ox 97.6 F 86 22 H 135/83 H 97 08/29/16 12:14 08/29/16 12:14 08/29/16 12:14 08/29/16 12:14 08/29/16 12:14 - Laboratory Laboratory results interpreted by me: 08/29/16 12:54 Potassium 5.1 H Discharge <NEHEMIAS HENRYICA - Last Filed: 08/29/16 14:01> <MEGANZACKARY - Last Filed: 08/29/16 15:10> - Discharge Clinical Impression: Abdominal pain Qualifiers: Abdominal location: right lower quadrant Qualified Code(s): R10.31 - Right lower quadrant pain Condition: Stable Disposition: HOME, SELF-CARE Additional Instructions: Abdominal Pain: There are many causes of abdominal pain. Pain can mean a serious problem requiring surgery (such as appendicitis). It can also be an innocent problem that goes away on its own (such as a viral infection). Often, time must pass to determine the cause of pain. The physician does not feel that hospitalization is necessary, at present. Things may change within the next 24 hours. Call the doctor or come back for re- examination if any problems occur, such as: (1) Pain that becomes more severe, steady, or becomes concentrated in one specific area. Also, pain that is more severe with movement or coughing. (2) Vomiting that persists or becomes more frequent. (3) Blood in the vomitus, urine, or bowel movements. Blood in the stool may have a tarry or black appearance. (4) Shaking chills or fever greater than 100 degrees F. (5) The abdomen becomes more distended or swollen. (6) Bowel movements cease. (7) Failure to improve as expected. //////////////////////////////////////////////////////////////////////////////// /////////////////////////////////////////////////////////// There was no clear explanation for your abdominal pain found today. Stay on clear liquids today and rest the intestines. Take Tylenol for pain if needed. Follow-up with a local medical doctor if not improving. RETURN TO THE EMERGENCY ROOM IF ANY NEW OR WORSENING SYMPTOMS. Stella Attestation: 08/29/16 15:10 I personally performed the services described in the documentation, reviewed and edited the documentation which was dictated to the scribe in my presence, and it accurately records my words and actions. (ZACKARY GUZMAN) Scribe Documentation - Scribe Written by Stella:: Stella Desai, 08/29/2016 [id number] acting as scribe for :: Megan <CHASIDY HENRY - Last Filed: 08/29/16 14:01>
[2016-08-29 13:13] LABS: ABSOLUTE BASOPHILS # (AUTO) 0.1 10^3/uL (0.0-0.2); ABSOLUTE EOSINOPHILS # (AUTO) 0.2 10^3/uL (0.0-0.6); ABSOLUTE LYMPHOCYTES (AUTO) 2.9 10^3/uL (0.5-4.7); ABSOLUTE MONOCYTES (AUTO) 0.5 10^3/uL (0.1-1.4); ABSOLUTE NEUT (AUTO) 5.1 10^3/uL (1.7-8.2); BASOPHILS % (AUTO) 0.7 % (0-2); EOSINOPHILS % (AUTO) 2.7 % (0-6); HEMATOCRIT 45.5 % (36.0-47.0); HEMOGLOBIN 15.2 g/dL (12.0-15.5); HGB HCT DIFFERENCE 0.1; LYMPHOCYTES % (AUTO) 33.2 % (13-45); MEAN CORPUSCULAR HEMOGLOBIN 29.8 pg (27.0-33.4); MEAN CORPUSCULAR HGB CONC 33.4 g/dL (32.0-36.0); MEAN CORPUSCULAR VOLUME 89 fl (80-97); MONOCYTES % (AUTO) 5.5 % (3-13); RED BLOOD COUNT 5.09 10^6/uL (3.72-5.28); RED CELL DISTRIBUTION WIDTH 13.3 % (11.5-14.0); SEGMENTED NEUTROPHILS % (AUTO) 57.9 % (42-78); WHITE BLOOD COUNT 8.9 10^3/uL (4.0-10.5)
[2016-08-29 13:31] LABS: BLOOD UREA NITROGEN 12 mg/dL (7-20); CALCIUM 10.1 mg/dL (8.4-10.2); CREATININE RESULT 0.88 mg/dL (0.52-1.25); GLUCOSE 87 mg/dL (75-110)
[2016-08-29 13:32] LABS: ALANINE AMINOTRANSFERASE 43 U/L (9-52); ALBUMIN 4.5 g/dL (3.5-5.0); ALKALINE PHOSPHATASE 48 U/L (38-126); ANION GAP 12 (5-19); ASPARTATE AMINO TRANSFERASE 31 U/L (14-36); BILIRUBIN,DIRECT 0.3 mg/dL (0.0-0.4); BILIRUBIN,TOTAL 0.5 mg/dL (0.2-1.3); CARBON DIOXIDE 26 mmol/L (22-30); CHLORIDE 105 mmol/L (98-107); CREATINE KINASE 104 U/L (30-135); LIPASE 46.7 U/L (23-300); POTASSIUM 5.1 mmol/L (3.6-5.0); SODIUM 142.6 mmol/L (137-145); TOTAL PROTEIN 8.2 g/dL (6.3-8.2)
--- NOTE | 2016-08-29 14:57 | RADIOLOGY REPORT (SQ) ---
EXAM DESCRIPTION: CT LTD RENAL STONE PROTOCOL ON COMPLETED DATE/TIME: 08/29/2016 2:48 pm REASON FOR STUDY: RLQ abd pain COMPARISON: 08/02/2014 TECHNIQUE: CT scan of the abdomen and pelvis performed without intravenous or oral contrast. Images reviewed with lung, soft tissue, and bone windows. Reconstructed coronal and sagittal MPR images revi ewed. All images stored on PACS. All CT scanners at this facility use dose modulation, iterative reconstruction, and/or weight based d osing when appropriate to reduce radiation dose to as low as reasonably achievable (ALARA). [facility]: Dose Right [facility]: CareDose [facility]: Dose Right [facility]: Teradose 4D [facility]: [employer] RADIATION DOSE: 19.22mGy. LIMITATIONS: None. FINDINGS: LOWER CHEST: No significant findings. No nodules or infiltrates. NON-CONTRASTED LIVER, SPLEEN, ADRENALS: Evaluation limited by lack of IV contrast. No identified sign ificant masses. PANCREAS: No masses. No peripancreatic inflammatory changes. GALLBLADDER: Surgically absent. RIGHT KIDNEY AND URETER: No suspicious masses. Assessment limited by lack of IV contrast. No signif icant calcifications. No hydronephrosis or hydroureter. LEFT KIDNEY AND URETER: No suspicious masses. Assessment limited by lack of IV contrast. No signifi cant calcifications. No hydronephrosis or hydroureter. AORTA AND RETROPERITONEUM: No aneurysm. No retroperitoneal masses or adenopathy. BOWEL AND PERITONEAL CAVITY: Sigmoid diverticulosis. No obvious masses or inflammatory changes. No f ree fluid. APPENDIX: Normal. PELVIS, BLADDER, AND ABDOMINAL WALL:No abnormal masses. No free fluid. Bladder normal. BONES: No significant findings. OTHER: No other significant finding. IMPRESSION: No acute findings in the abdomen or pelvis. TECHNICAL DOCUMENTATION: JOB ID: [id number] Quality ID # [id number]: Final reports with documentation of one or more dose reduction techniques (e.g., Au tomated exposure control, adjustment of the mA and/or kV according to patient size, use of iterative reconstruction technique) 2010 [employer]- All Rights Reserved
[2016-08-29 15:18] VITALS: BP 128/85
== END 2016-08-29 15:15 | disposition home or self-care (01) ==
LOC: ER 11:58
DX: R10.31 Right lower quadrant pain (principal); R11.2 Nausea with vomiting, unspecified; R19.7 Diarrhea, unspecified; I10 Essential (primary) hypertension; J45.909 Unspecified asthma, uncomplicated; F17.200 Nicotine dependence, unspecified, uncomplicated; Z88.5 Allergy status to narcotic agent; Z88.2 Allergy status to sulfonamides; Z88.1 Allergy status to other antibiotic agents; Z88.8 Allergy status to other drugs, medicaments and biological substances; Z87.442 Personal history of urinary calculi; Z87.19 Personal history of other diseases of the digestive system; Z86.14 Personal history of Methicillin resistant Staphylococcus aureus infection; Z90.49 Acquired absence of other specified parts of digestive tract; Z90.710 Acquired absence of both cervix and uterus; Z98.51 Tubal ligation status
CPT/HCPCS: 99284; 36415; 82550; 83690; 85025; 80053; 81001; 76380; S0119

== ENCOUNTER 2016-09-16 20:01 | Emergency (ER) | payer SELFPAY ==
--- NOTE | 2016-09-16 20:33 | ER Document Report ---
ED Medical Screen (RME) - General Chief Complaint: Depression, SI Stated Complaint: POSSIBLE DEPRESSION Time Seen by Provider: 09/16/16 20:30 Mode of Arrival: Ambulatory Information source: Patient Notes: history of depression, not taken any meds in over a year due to finances, was taken prozac, trazodone, and xanax. Just wants to go sleep and never wake up, history of suicide attempts. very tearful. TRAVEL OUTSIDE OF THE [place] IN LAST 30 DAYS: No - Related Data Allergies/Adverse Reactions: cefazolin [Cefazolin] Allergy (Intermediate, Verified 08/29/16 12:51) Hives hydromorphone HCl [From Dilaudid] Allergy (Mild, Verified 08/29/16 12:51) Facial edema and rash Sulfa (Sulfonamide Antibiotics) Allergy (Mild, Verified 08/29/16 12:51) erythromycin base [Erythromycin Base] Allergy (Unknown, Verified 08/29/16 12:51) cephalexin [Cephalexin] Allergy (Verified 08/29/16 12:51) cortisone [Cortisone] Allergy (Verified 08/29/16 12:51) Penicillins Allergy (Verified 08/29/16 12:51) Past Medical History - Past Medical History Cardiac Medical History: Reports: Hx Hypertension Denies: Hx Congestive Heart Failure, Hx Heart Attack Pulmonary Medical History: Reports: Hx Asthma, Hx Bronchitis, Hx Pneumonia Denies: Hx COPD, Hx Tuberculosis Neurological Medical History: Reports: Hx Migraine. Denies: Hx Seizures Renal/ Medical History: Reports: Hx Kidney Stones, Hx Ovarian Cysts. Denies: Hx End Stage Renal Disease, Hx Peritoneal Dialysis GI Medical History: Reports: Hx Diverticulitis, Hx Gastroesophageal Reflux Disease, Hx Irritable Bowel. Denies: Hx Cirrhosis, Hx Ulcer Musculoskeltal Medical History: Reports Hx Arthritis - back, Denies Hx Multiple Sclerosis, Reports Hx Musculoskeletal Trauma Skin Medical History: Reports Hx MRSA Psychiatric Medical History: Reports: Hx Anxiety, Hx Bipolar Disorder, Hx Depression, Hx Post Traumatic Stress Disorder Denies: Hx Schizophrenia Traumatic Medical History: Reports: Hx Fractures - hand Infectious Medical History: Reports: Hx MRSA Past Surgical History: Reports: Hx Abdominal Surgery, Hx Section - x 2 , Hx Cholecystectomy, Hx Dilation and Curettage, Hx Gynecologic Surgery - D & C , Hx Hysterectomy, Hx Tubal Ligation. Denies: Hx Pacemaker - Immunizations Immunizations up to date: Yes Hx Diphtheria, Pertussis, Tetanus Vaccination: Yes - 2011 Physical Exam - Vital signs Vitals: Temp Pulse Resp BP Pulse Ox 98.0 F 103 H 20 139/85 H 97 09/16/16 20:22 09/16/16 20:22 09/16/16 20:22 09/16/16 20:22 09/16/16 20:22 Course - Vital Signs Vital signs: Temp Pulse Resp BP Pulse Ox 98.0 F 103 H 20 139/85 H 97 09/16/16 20:22 09/16/16 20:22 09/16/16 20:22 09/16/16 20:22 09/16/16 20:22
[2016-09-16 20:52] LABS: ABSOLUTE BASOPHILS # (AUTO) 0.1 10^3/uL (0.0-0.2); ABSOLUTE EOSINOPHILS # (AUTO) 0.4 10^3/uL (0.0-0.6); ABSOLUTE LYMPHOCYTES (AUTO) 3.8 10^3/uL (0.5-4.7); ABSOLUTE MONOCYTES (AUTO) 0.7 10^3/uL (0.1-1.4); ABSOLUTE NEUT (AUTO) 6.4 10^3/uL (1.7-8.2); BASOPHILS % (AUTO) 1.1 % (0-2); EOSINOPHILS % (AUTO) 3.6 % (0-6); HEMATOCRIT 47.6 % (36.0-47.0); HGB HCT DIFFERENCE 0.4; LYMPHOCYTES % (AUTO) 33.4 % (13-45); MEAN CORPUSCULAR HEMOGLOBIN 29.9 pg (27.0-33.4); MEAN CORPUSCULAR HGB CONC 33.7 g/dL (32.0-36.0); MEAN CORPUSCULAR VOLUME 89 fl (80-97); RED BLOOD COUNT 5.37 10^6/uL (3.72-5.28); RED CELL DISTRIBUTION WIDTH 13.5 % (11.5-14.0); SEGMENTED NEUTROPHILS % (AUTO) 55.9 % (42-78); WHITE BLOOD COUNT 11.5 10^3/uL (4.0-10.5)
[2016-09-16 21:05] LABS: ALANINE AMINOTRANSFERASE 37 U/L (9-52); ALBUMIN 4.1 g/dL (3.5-5.0); ALKALINE PHOSPHATASE 43 U/L (38-126); ANION GAP 12 (5-19); ASPARTATE AMINO TRANSFERASE 23 U/L (14-36); BILIRUBIN,DIRECT 0.3 mg/dL (0.0-0.4); BILIRUBIN,TOTAL 0.5 mg/dL (0.2-1.3); BLOOD UREA NITROGEN 13 mg/dL (7-20); CALCIUM 9.1 mg/dL (8.4-10.2); CARBON DIOXIDE 24 mmol/L (22-30); CHLORIDE 106 mmol/L (98-107); CREATININE RESULT 1.19 mg/dL (0.52-1.25); GLUCOSE 89 mg/dL (75-110); POTASSIUM 4.5 mmol/L (3.6-5.0); SODIUM 141.7 mmol/L (137-145); TOTAL PROTEIN 7.6 g/dL (6.3-8.2)
[2016-09-16 21:06] LABS: ALCOHOL < 10 mg/dL (NONE DETECTED)
--- NOTE | 2016-09-16 21:11 | ER Document Report ---
ED General - General Chief Complaint: Depression, SI Stated Complaint: POSSIBLE DEPRESSION Time Seen by Provider: 09/16/16 20:30 Mode of Arrival: Ambulatory Information source: Patient Notes: Patient presents emergency department very tearful. Patient reports her depression is really bad she just wants to go sleep and not wake up. She reports history of taking medications for depression to include Prozac trazodone and xanax. She is unable to afford her medications for the past year. She reports history of suicide attempt. She reports she is just so low today she cannot quit crying. Reports sad feelings have been coming on for a while but it was really bad today. Patient reports that she is not suicidal. Reports she does not have a plan. She has her and her best friend at her side. They both report that they would stay with patient until she is seen [facility] tomorrow. TRAVEL OUTSIDE OF THE [place] IN LAST 30 DAYS: No - HPI Onset: Last week Quality of pain: Achy - chronic hip pain Pain Level: 5 - emotional Associated symptoms: None Exacerbated by: Denies Relieved by: Denies Similar symptoms previously: Yes Recently seen / treated by doctor: No - Related Data Allergies/Adverse Reactions: cefazolin [Cefazolin] Allergy (Intermediate, Verified 08/29/16 12:51) Hives hydromorphone HCl [From Dilaudid] Allergy (Mild, Verified 08/29/16 12:51) Facial edema and rash Sulfa (Sulfonamide Antibiotics) Allergy (Mild, Verified 08/29/16 12:51) erythromycin base [Erythromycin Base] Allergy (Unknown, Verified 08/29/16 12:51) cephalexin [Cephalexin] Allergy (Verified 08/29/16 12:51) cortisone [Cortisone] Allergy (Verified 08/29/16 12:51) Penicillins Allergy (Verified 08/29/16 12:51) Past Medical History - General Information source: Patient Last Menstrual Period: hyst - Social History Smoking Status: Current Every Day Smoker Cigarette use (# per day): Yes Frequency of alcohol use: Rare Drug Abuse: None Lives with: Family Family History: Reviewed & Not Pertinent, Arthritis, CAD, CVA, DM, Hyperlipidemia, Hypertension, Malignancy, Thyroid Disfunction, Other - Kidney stones Patient has suicidal ideation: Yes Patient has homicidal ideation: No - Past Medical History Cardiac Medical History: Reports: Hx Hypertension Denies: Hx Congestive Heart Failure, Hx Heart Attack Pulmonary Medical History: Reports: Hx Asthma, Hx Bronchitis, Hx Pneumonia Denies: Hx COPD, Hx Tuberculosis Neurological Medical History: Reports: Hx Migraine. Denies: Hx Seizures Renal/ Medical History: Reports: Hx Kidney Stones, Hx Ovarian Cysts. Denies: Hx End Stage Renal Disease, Hx Peritoneal Dialysis GI Medical History: Reports: Hx Diverticulitis, Hx Gastroesophageal Reflux Disease, Hx Irritable Bowel. Denies: Hx Cirrhosis, Hx Ulcer Musculoskeltal Medical History: Reports Hx Arthritis - back, Denies Hx Multiple Sclerosis, Reports Hx Musculoskeletal Trauma Skin Medical History: Reports Hx MRSA Psychiatric Medical History: Reports: Hx Anxiety, Hx Bipolar Disorder, Hx Depression, Hx Post Traumatic Stress Disorder Denies: Hx Schizophrenia Traumatic Medical History: Reports: Hx Fractures - hand Infectious Medical History: Reports: Hx MRSA Past Surgical History: Reports: Hx Abdominal Surgery, Hx Section - x 2 , Hx Cholecystectomy, Hx Dilation and Curettage, Hx Gynecologic Surgery - D & C , Hx Hysterectomy, Hx Tubal Ligation. Denies: Hx Pacemaker - Immunizations Immunizations up to date: Yes Hx Diphtheria, Pertussis, Tetanus Vaccination: Yes - 2011 Hx Pneumococcal Vaccination: 11/10/11 Review of Systems - Review of Systems Notes: Review HPI for review of systems., All other systems negative Physical Exam - Vital signs Vitals: Temp Pulse Resp BP Pulse Ox 98.0 F 103 H 20 139/85 H 97 09/16/16 20:22 09/16/16 20:22 09/16/16 20:22 09/16/16 20:22 09/16/16 20:22 - Notes Notes: PHYSICAL EXAMINATION: GENERAL: Well-appearing tearful, nontoxic looking HEAD: Atraumatic, normocephalic. EYES: Pupils equal round extraocular movements intact, sclera anicteric, conjunctiva are normal. ENT: nares patent, Moist mucous membranes. NECK: Normal range of motion, supple without lymphadenopathy LUNGS: CTAB and equal. No wheezes rales or rhonchi. HEART: Regular rate and rhythm without murmurs ABDOMEN: Soft, no tenderness. No guarding, no rebound EXTREMITIES: Normal range of motion, no pitting edema. NEUROLOGICAL: Cranial nerves grossly intact. Normal sensory/motor exams. PSYCH: Normal mood, normal affect. SKIN: Warm, Dry, normal turgor, no rashes or lesions noted Course - Re-evaluation Re-evalutation: 09/16/16 21:27 Feel patient is safe to go home. She denies suicide ideations, does not have a plan. Is wanting to get back on her medications. Patients and best friend will be staying with her. She denies suicidal ideations. Consulted Dr Parham per apc guidelines and he agrees with plan. - Vital Signs Vital signs: Temp Pulse Resp BP Pulse Ox 98.4 F 88 20 169/89 H 99 09/16/16 21:15 09/16/16 21:15 09/16/16 21:15 09/16/16 21:15 09/16/16 21:15 - Laboratory Result Diagrams: 09/16/16 20:42 09/16/16 20:42 Laboratory results interpreted by me: 09/16/16 09/16/16 20:42 20:42 WBC 11.5 H RBC 5.37 H Hgb 16.0 H Hct 47.6 H Est GFR ( Amer) 59 L Est GFR (Non-Af Amer) 49 L Salicylates < 1.0 L Acetaminophen < 10 L - EKG Interpretation by Me EKG shows normal: Sinus rhythm Discharge - Discharge Clinical Impression: Elevated blood pressure reading Depression Qualifiers: Depression Type: unspecified Qualified Code(s): F32.9 - Major depressive disorder, single episode, unspecified Condition: Stable Disposition: HOME, SELF-CARE Instructions: Depression (OM), Antidepressants (OM) Additional Instructions: *You have been evaluated for depression *Take medication as prescribed *Follow up with [facility] tomorrow *Return to ED for worsening condition, changes, needs Prescriptions: Trazodone HCl 100 mg PO QHS #3 tablet Forms: Elevated Blood Pressure Referrals: [facility] [Provider Group] - Follow up tomorrow
[2016-09-16] MEDS ORDERED: TRAZODONE HCL 50 MG TABLET PO ONE (21:37)
[2016-09-16 22:13] VITALS: BP 169/89
--- NOTE | 2016-09-16 22:42 | EKG REPORT ---
SEVERITY:- BORDERLINE ECG - SINUS RHYTHM CONSIDER ANTERIOR INFARCT : Confirmed by: Robert Juárez 16-Sep-2016 22:41:42
== END 2016-09-16 21:15 | disposition home or self-care (01) ==
LOC: ER 20:01
DX: F32.9 Major depressive disorder, single episode, unspecified (principal); T43.216A Underdosing of selective serotonin and norepinephrine reuptake inhibitors, initial encounter; T42.4X6A Underdosing of benzodiazepines, initial encounter; Z91.120 Patient's intentional underdosing of medication regimen due to financial hardship; F41.9 Anxiety disorder, unspecified; I10 Essential (primary) hypertension; M25.559 Pain in unspecified hip; G89.29 Other chronic pain; J45.909 Unspecified asthma, uncomplicated; F17.210 Nicotine dependence, cigarettes, uncomplicated; Z88.5 Allergy status to narcotic agent; Z88.2 Allergy status to sulfonamides; Z88.1 Allergy status to other antibiotic agents; Z88.0 Allergy status to penicillin; Z88.8 Allergy status to other drugs, medicaments and biological substances; Z86.14 Personal history of Methicillin resistant Staphylococcus aureus infection; Z91.5 Personal history of self-harm
CPT/HCPCS: 36415; 80053; 80307; 85025; 93005; 93010; 99284

== ENCOUNTER 2016-09-20 14:18 | Emergency (ER) | payer SELFPAY ==
--- NOTE | 2016-09-20 14:44 | ER Document Report ---
ED General - General Chief Complaint: Depression Stated Complaint: IVC Time Seen by Provider: 09/20/16 14:28 TRAVEL OUTSIDE OF THE [place] IN LAST 30 DAYS: No - HPI Patient complains to provider of: Depression suicidal ideation Notes: Patient coming in for evaluation of depression. Patient has recently seen in the ER and prescribed trazodone that she has recently not been able to take any of her previously prescribed psychiatric medications for her depression. Patient did go to [facility] today however missed her appointment. Patient came into the ER after being referred by her therapist. 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 Patient states severe depression with no specific trigger. Denies fevers chills nausea vomiting diarrhea. - Related Data Allergies/Adverse Reactions: cefazolin [Cefazolin] Allergy (Intermediate, Verified 09/20/16 14:22) Hives hydromorphone HCl [From Dilaudid] Allergy (Mild, Verified 09/20/16 14:22) Facial edema and rash Sulfa (Sulfonamide Antibiotics) Allergy (Mild, Verified 09/20/16 14:22) erythromycin base [Erythromycin Base] Allergy (Unknown, Verified 09/20/16 14:22) cephalexin [Cephalexin] Allergy (Verified 09/20/16 14:22) cortisone [Cortisone] Allergy (Verified 09/20/16 14:22) Penicillins Allergy (Verified 09/20/16 14:22) Past Medical History - Social History Smoking Status: Current Every Day Smoker Chew tobacco use (# tins/day): No Frequency of alcohol use: Rare Drug Abuse: None Family History: Reviewed & Not Pertinent, Arthritis, CAD, CVA, DM, Hyperlipidemia, Hypertension, Malignancy, Thyroid Disfunction, Other - Kidney stones Patient has suicidal ideation: Yes Patient has homicidal ideation: Yes - Past Medical History Cardiac Medical History: Reports: Hx Hypertension Denies: Hx Congestive Heart Failure, Hx Heart Attack Pulmonary Medical History: Reports: Hx Asthma, Hx Bronchitis, Hx Pneumonia Denies: Hx COPD, Hx Tuberculosis Neurological Medical History: Reports: Hx Migraine. Denies: Hx Seizures Renal/ Medical History: Reports: Hx Kidney Stones, Hx Ovarian Cysts. Denies: Hx End Stage Renal Disease, Hx Peritoneal Dialysis GI Medical History: Reports: Hx Diverticulitis, Hx Gastroesophageal Reflux Disease, Hx Irritable Bowel. Denies: Hx Cirrhosis, Hx Ulcer Musculoskeltal Medical History: Reports Hx Arthritis - back, Denies Hx Multiple Sclerosis, Reports Hx Musculoskeletal Trauma Skin Medical History: Reports Hx MRSA Psychiatric Medical History: Reports: Hx Anxiety, Hx Bipolar Disorder, Hx Depression, Hx Post Traumatic Stress Disorder Denies: Hx Schizophrenia Traumatic Medical History: Reports: Hx Fractures - hand Infectious Medical History: Reports: Hx MRSA Past Surgical History: Reports: Hx Abdominal Surgery, Hx Section - x 2 , Hx Cholecystectomy, Hx Dilation and Curettage, Hx Gynecologic Surgery - D & C , Hx Hysterectomy, Hx Tubal Ligation. Denies: Hx Pacemaker - Immunizations Immunizations up to date: Yes Hx Diphtheria, Pertussis, Tetanus Vaccination: Yes - 2011 Hx Pneumococcal Vaccination: 11/10/11 Review of Systems - Review of Systems Constitutional: No symptoms reported EENT: No symptoms reported Cardiovascular: No symptoms reported Respiratory: No symptoms reported Gastrointestinal: No symptoms reported Genitourinary: No symptoms reported Female Genitourinary: No symptoms reported Musculoskeletal: No symptoms reported Skin: No symptoms reported Hematologic/Lymphatic: No symptoms reported Neurological/Psychological: Depression, Suicidal ideation -: Yes All other systems reviewed and negative Physical Exam - Vital signs Vitals: Temp Pulse Resp BP Pulse Ox 98.2 F 110 H 18 148/84 H 97 09/20/16 14:22 09/20/16 14:22 09/20/16 14:22 09/20/16 14:22 09/20/16 14:22 Interpretation: Normal - General General appearance: Appears well, Alert - HEENT Head: Normocephalic, Atraumatic Eyes: Normal Pupils: PERRL - Respiratory Respiratory status: No respiratory distress Chest status: Nontender Breath sounds: Normal Chest palpation: Normal - Cardiovascular Rhythm: Regular Heart sounds: Normal auscultation Murmur: No - Abdominal Inspection: Normal Distension: No distension Bowel sounds: Normal Tenderness: Nontender Organomegaly: No organomegaly - Back Back: Normal, Nontender - Extremities General upper extremity: Normal inspection, Nontender, Normal color, Normal ROM , Normal temperature General lower extremity: Normal inspection, Nontender, Normal color, Normal ROM , Normal temperature, Normal weight bearing. No: Louie's sign - Neurological Neuro grossly intact: Yes Cognition: Normal Orientation: AAOx4 Esau Coma Scale Eye Opening: Spontaneous Esau Coma Scale Verbal: Oriented [place] Coma Scale Motor: Obeys Commands Esau Coma Scale Total: 15 Speech: Normal Motor strength normal: LUE, RUE, LLE, RLE Sensory: Normal - Psychological Associated symptoms: Flat affect, Tearful - Skin Skin Temperature: Warm Skin Moisture: Dry Skin Color: Normal Course - Re-evaluation Re-evalutation: 09/20/16 18:19 Patient's lab work does not show any critical etiology for worse symptoms no medical pathology. Patient upon initial evaluation does not have any intent or plan has a long-standing history of suicidal ideation therefore initial impression the patient more likely could be discharged home follow-up with her outpatient psychiatric resources. We were able to confirm the patient did miss her appointment today also confirmed with her therapist that although depressed did not think she would be a harm to herself. Patient states that the psychiatric outpatient resources referred her to the ER for commitment. Upon or psychiatric team evaluation patient still did not have any suicidal plan just chronic suicidal ideation. Upon my reevaluation just prior to discharge with discharge papers in hand and prescription for medication patient states she now has a plan very specific stating that she would go to recall the obtain her 22 caliber pistol and shot herself in the head. Patient printed bedside confirms guns in the household. Patient will be now placed on IVC paperwork as I do think that she does meet criteria now patient can be reevaluated in the morning. 09/20/16 18:25 - Vital Signs Vital signs: Temp Pulse Resp BP Pulse Ox 98.2 F 110 H 18 148/84 H 97 09/20/16 14:22 09/20/16 14:22 09/20/16 14:22 09/20/16 14:22 09/20/16 14:22 - Laboratory Result Diagrams: 09/20/16 14:35 09/20/16 14:35 Laboratory results interpreted by me: 09/20/16 14:35 Glucose 128 H Salicylates < 1.0 L Acetaminophen < 10 L Discharge - Discharge Clinical Impression: Depressive disorder, Anxiety, Suicidal ideations Condition: Stable Disposition: PSYCH HOSP/UNIT Additional Instructions: DEPRESSION: Your evaluation reveals that you have mental depression. While symptoms may be vague, they often include disturbance of sleep, fatigue, loss of appetite , and general loss of interest in life. While depression may be a side effect of drugs, or a reaction to a major change in your life, many cases have no known cause. If depression is acute, and related to a major loss in your life, you can expect it to clear completely with time. If you have been depressed a long time , are prone to repeated bouts of depression or low mood, or have been thinking of suicide, get help. Depression can be treated with anti-depressant medication and counselling. Long-term depression will often take a few weeks to clear, even with appropriate medication. Follow-up care is important. SUICIDAL IDEATION: Suicidal ideation is a common medical term for thoughts about suicide, which may be as detailed as a formulated plan, without the suicidal act itself. Although most people who undergo suicidal ideation do not commit suicide, some go on to make suicide attempts. The range of suicidal ideation varies greatly from fleeting to detailed planning, role playing, and unsuccessful attempts. While thoughts about suicide are common, most people do not carry out serious actions to commit suicide. Based upon your evaluation and discussion with you, we do not believe you are currently at risk to act upon your thoughts of suicide. You have agreed to return to the Emergency Department, at any time , if you feel inclined to act upon your suicidal thoughts. FOLLOW-UP CARE: Follow-up with [facility] on mental health treatment on your previously scheduled October 01 appointment. If you experience worsening or a significant change in your symptoms, notify the physician immediately or return to the Emergency Department at any time for re-evaluation. Prescriptions: Buspirone HCl [Buspar 10 mg Tablet] 10 mg PO BID 14 Days Referrals: [facility] [Provider Group] - 10/01/16 [facility] [Primary Care Provider] - Follow up as needed
[2016-09-20] MEDS ORDERED: NICOTINE 14 MG/24 HR PATCH.TD24 TD ONE (14:54)
[2016-09-20 15:21] LABS: ABSOLUTE BASOPHILS # (AUTO) 0.1 10^3/uL (0.0-0.2); ABSOLUTE EOSINOPHILS # (AUTO) 0.2 10^3/uL (0.0-0.6); ABSOLUTE LYMPHOCYTES (AUTO) 2.7 10^3/uL (0.5-4.7); ABSOLUTE MONOCYTES (AUTO) 0.4 10^3/uL (0.1-1.4); ABSOLUTE NEUT (AUTO) 5.4 10^3/uL (1.7-8.2); BASOPHILS % (AUTO) 0.8 % (0-2); EOSINOPHILS % (AUTO) 2.3 % (0-6); HEMATOCRIT 41.5 % (36.0-47.0); HEMOGLOBIN 14.2 g/dL (12.0-15.5); HGB HCT DIFFERENCE 1.1; MEAN CORPUSCULAR HEMOGLOBIN 30.2 pg (27.0-33.4); MEAN CORPUSCULAR HGB CONC 34.2 g/dL (32.0-36.0); MEAN CORPUSCULAR VOLUME 88 fl (80-97); MONOCYTES % (AUTO) 4.6 % (3-13); RED CELL DISTRIBUTION WIDTH 13.3 % (11.5-14.0); SEGMENTED NEUTROPHILS % (AUTO) 61.3 % (42-78); WHITE BLOOD COUNT 8.8 10^3/uL (4.0-10.5)
[2016-09-20 15:32] LABS: APPEARANCE,URINE CLEAR; BILIRUBIN,URINE NEGATIVE (NEGATIVE); GLUCOSE, URINE NEGATIVE (NEGATIVE); KETONES,URINE NEGATIVE (NEGATIVE); LEUKOCYTE ESTERASE,URINE NEGATIVE (NEGATIVE); NITRITE,URINE NEGATIVE (NEGATIVE); PROTEIN,URINE NEGATIVE (NEGATIVE); URINE SPECIFIC GRAVITY 1.017; UROBILINOGEN,URINE NEGATIVE mg/dL (<2.0)
[2016-09-20 15:39] LABS: ALANINE AMINOTRANSFERASE 29 U/L (9-52); ALBUMIN 4.3 g/dL (3.5-5.0); ALKALINE PHOSPHATASE 43 U/L (38-126); ANION GAP 14 (5-19); ASPARTATE AMINO TRANSFERASE 20 U/L (14-36); BILIRUBIN,DIRECT 0.3 mg/dL (0.0-0.4); BILIRUBIN,TOTAL 0.4 mg/dL (0.2-1.3); BLOOD UREA NITROGEN 13 mg/dL (7-20); CALCIUM 9.3 mg/dL (8.4-10.2); CARBON DIOXIDE 22 mmol/L (22-30); CHLORIDE 107 mmol/L (98-107); GLUCOSE 128 mg/dL (75-110); POTASSIUM 4.2 mmol/L (3.6-5.0); SODIUM 142.8 mmol/L (137-145); TOTAL PROTEIN 7.6 g/dL (6.3-8.2)
[2016-09-20 15:42] LABS: URINE BARBITURATES SCREEN NEGATIVE; URINE METHADONE SCREEN NEGATIVE; URINE OPIATES LOW NEGATIVE; URINE PHENCYCLIDINE SCREEN NEGATIVE
[2016-09-20 15:45] LABS: ALCOHOL < 10 mg/dL (NONE DETECTED)
[2016-09-20] MEDS ORDERED: BUSPIRONE HCL 10 MG TABLET PO ONE (17:08)
--- NOTE | 2016-09-20 17:13 | ER Document Report ---
Addendum entered and electronically signed by FARZAD HEATON LCSWA 09/22/16 09: 04: ED Psych Disorder / Suicide - General Chief Complaint: Depression Stated Complaint: IVC Time Seen by Provider: 09/20/16 14:28 TRAVEL OUTSIDE OF THE [place] IN LAST 30 DAYS: No - HPI Notes: Clinician conducted check in 09/22/2016: Patient is sitting calmly on bed with sitting in chair next to her. Patient states she is feeling much better. Patient apologized to clinician for her behavior yesterday. Patient did not sleep well last night however still feels like a different person today. Patient clarified medication is working and she feels good. Patient denies suicidal and homicidal ideation today conversational speech was within normal rate and prosody. Eye contact was well- maintained. Attention and concentration were good. Mood is euthymic with congruent affect. Patient's Lukas agrees to be part of patient's discharge plan. Preliminary diagnosis 296.80 (F31.9) unspecified bipolar and related disorder-was demonstrating hypomanic behavior upon arrival to [facility] ED by irritability, mood disturbance, distractibility and psychomotor agitation. Impression\\plan: Patient is recommended for rescind of IVC and is considered psychiatrically clear for discharge. Patient no longer meets IVC criteria per [place] GS 122C. Patient denies current suicidal and homicidal ideation. Patient is demonstrating euthymic mood and is able to carry on a conversation. Patient' s agrees to be part of patient's discharge plan to ensure patient has no access to weapons or medications and follow through with mental health appointment patient is recommended to follow-up with [facility] on 10/01. Ollie was consulted on the management of this patient; attending physician is agreement with recommendations and disposition. - Related Data Allergies/Adverse Reactions: cefazolin [Cefazolin] Allergy (Intermediate, Verified 09/20/16 14:22) Hives hydromorphone HCl [From Dilaudid] Allergy (Mild, Verified 09/20/16 14:22) Facial edema and rash Sulfa (Sulfonamide Antibiotics) Allergy (Mild, Verified 09/20/16 14:22) erythromycin base [Erythromycin Base] Allergy (Unknown, Verified 09/20/16 14:22) cephalexin [Cephalexin] Allergy (Verified 09/20/16 14:22) cortisone [Cortisone] Allergy (Verified 09/20/16 14:22) Penicillins Allergy (Verified 09/20/16 14:22) Discharge - Discharge Clinical Impression: Suicidal ideations, Anal fissure, Hemorrhoids Bipolar disorder Qualifiers: Active/Remission status: currently active Current bipolar episode type: hypomanic Qualified Code(s): F31.0 - Bipolar disorder, current episode hypomanic Clinical Impression: (Ruled Out): Depressive disorder, Anxiety Condition: Stable Disposition: HOME, SELF-CARE Additional Instructions: DEPRESSION: Your evaluation reveals that you have mental depression. While symptoms may be vague, they often include disturbance of sleep, fatigue, loss of appetite , and general loss of interest in life. While depression may be a side effect of drugs, or a reaction to a major change in your life, many cases have no known cause. If depression is acute, and related to a major loss in your life, you can expect it to clear completely with time. If you have been depressed a long time , are prone to repeated bouts of depression or low mood, or have been thinking of suicide, get help. Depression can be treated with anti-depressant medication and counselling. Long-term depression will often take a few weeks to clear, even with appropriate medication. Follow-up care is important. SUICIDAL IDEATION: Suicidal ideation is a common medical term for thoughts about suicide, which may be as detailed as a formulated plan, without the suicidal act itself. Although most people who undergo suicidal ideation do not commit suicide, some go on to make suicide attempts. The range of suicidal ideation varies greatly from fleeting to detailed planning, role playing, and unsuccessful attempts. While thoughts about suicide are common, most people do not carry out serious actions to commit suicide. Based upon your evaluation and discussion with you, we do not believe you are currently at risk to act upon your thoughts of suicide. You have agreed to return to the Emergency Department, at any time , if you feel inclined to act upon your suicidal thoughts. FOLLOW-UP CARE: Follow-up with [facility] on mental health treatment on your previously scheduled October 01 appointment. If you experience worsening or a significant change in your symptoms, notify the physician immediately or return to the Emergency Department at any time for re-evaluation. Prescriptions: Buspirone HCl [Buspar 10 mg Tablet] 10 mg PO BID 14 Days Referrals: [facility] [Provider Group] - 10/01/16 [facility] [Primary Care Provider] - Follow up as needed Addendum entered and electronically signed by FARZAD HEATON LCSWA 09/21/16 15: 44: ED Psych Disorder / Suicide - General Chief Complaint: Depression Stated Complaint: IVC Time Seen by Provider: 09/20/16 14:28 TRAVEL OUTSIDE OF THE [place] IN LAST 30 DAYS: No - HPI Notes: Clinician conducted checking with patient 09/21/2016: Clinician notes patient disclosed upon discharge she had a plan to shoot herself in the head with a gun she currently has access to in her home. At that time attending physician put patient under IVC Patient states she did not tell clinician the plan of shooting herself because "I thought you were not really going listen to me." She continued disclosed that she thought the clinician would just send her home hurting anyway. She continues states that she is depressed tired and hurting. She continues states that she is tired of feeling like this all the time. Patient states that she just wants to feel better. Patient is alert and orientated to person place time and circumstance. Mood is with labile affect. Patient endorses suicidal ideation denies homicidal ideation. Clinician notes patient endorsed passive suicidal and homicidal ideation yesterday. Patient denies auditory visual hallucinations; patient is not demonstrating any behavior congruent with responding to internal stimuli. No delusions are noted. Thought process is currently organized and linear. Thought content is guarded and demonstrates a high level of placing blame on others. Conversational speech is confrontational and loud at times. Eye contact was poor. Intellectual abilities appeared within average range. Attention and concentration is poor. Insight, judgment, impulse control is poor. Clinician notes patient is frequently heard making demands of [facility] staff and becomes verbally aggressive and threatening behavioral outburst if he does not get her way. Patient also demonstrated this behavior with loved ones such as being observed playing her roommate and demanding that she come to [facility] before she loses her temper. Has demanded clinician call people for her and to get her medication for her anxiety. Preliminary 296.80 (F31.9) unspecified bipolar and related disorder Impression\\plan: Patient is recommended to continue under IVC. Patient will be reevaluated. Dr. Levin was consulted and the care management of this patient ; attending physician is agreement with recommendations and disposition. - Related Data Allergies/Adverse Reactions: cefazolin [Cefazolin] Allergy (Intermediate, Verified 09/20/16 14:22) Hives hydromorphone HCl [From Dilaudid] Allergy (Mild, Verified 09/20/16 14:22) Facial edema and rash Sulfa (Sulfonamide Antibiotics) Allergy (Mild, Verified 09/20/16 14:22) erythromycin base [Erythromycin Base] Allergy (Unknown, Verified 09/20/16 14:22) cephalexin [Cephalexin] Allergy (Verified 09/20/16 14:22) cortisone [Cortisone] Allergy (Verified 09/20/16 14:22) Penicillins Allergy (Verified 09/20/16 14:22) Original Note: ED Psych Disorder / Suicide - General TRAVEL OUTSIDE OF THE [place] IN LAST 30 DAYS: No <FARZAD HEATON - Last Filed: 09/20/16 16:57> <MANJEET LINDSEY - Last Filed: 09/20/16 18:17> - General Chief Complaint: Depression Stated Complaint: IVC Time Seen by Provider: 09/20/16 14:28 - HPI Notes: Patient disclosed to attending nurse: Patient comes to [facility] from her therapist office for IVC commitment. Patient states she has depression but does not have suicidal ideation. Spoke to Valery the patient's therapist. She disclosed she did not see the patient for an appointment today however did briefly speak with her. She states the patient had a 10:00 appointment this morning however missed her appointment with medication management. Patient states in the waiting room hoping to get an walk-in however was unable to be seen. Patient is reported to have increase in depression anxiety and has been crying for multiple days. Patient has upcoming appointment October 01 for medication management. She continued disclose not feel the patient was a danger to herself but is been very tearful. States that she has been off medication for 5 years. She states that on Saturday she "hit the wall." Patient is unable to identify a trigger. She states that she used to be on Wellbutrin 500 mg, Xanax 1 mg, trazodone 300 mg, Abilify 10 mg , Topamax 100 mg, metformin 1000 mg a day. She continued disclosed that she was unable to make her appointment this morning because of the transportation issue. She continued disclosed that she did wait hoping again as a walk-in however was sent over to [facility] ED when it was determined that she would not be able to get in. Clinician notes when conversation of discharge plan started patient became upset and walked out of the room. Patient's friend went after the patient was able to convince the patient to return. States she feels that she will not get the help she needs. Patient continued disclosed that she has been having suicidal and homicidal thoughts. She states that she thought about feeding her boss to the sharks and then she would take pills herself or feed herself to the sharks. Alert and orientated to person place time and circumstance. Mood is irritable with restricted affect, psychomotor agitation. Patient endorses suicidal and homicidal ideation however mean for plan is questionable i.e. feeding someone or herself to sharks. Patient denies auditory and visual hallucinations; patient is not demonstrating any behavior congruent to responding to internal stimuli. No delusions are noted. Thought process is organized and linear. Conversational speech is short with irritable tone. Eye contact was poor. Intellectual abilities appear to be within average range. Attention and concentration are fair. Insight, judgment, impulse control are fair. 311 (F32.9) unspecified depressive disorder 300.00 Unspecified anxiety disorder Impression\\plan: Patient is considered psychiatrically clear for discharge. Patient does not meet IVC criteria per [place] GS 122C. Patient is suicidal and homicidal ideation however no concrete plan means or intent. Patient does verbalize a plan of feeding others or herself to the sharks. Unable to identify trigger. Clinician notes records indicate patient has a documented pattern from physicians illustrating behavior congruent to secondary gain. However at this time patient is demonstrating high anxiety with psychomotor agitation with shaking of legs rocking of her body. Patient is recommended to follow-up with [facility] on October [address] Levin was consulted on the care and management of this patient attending physician is in agreement with recommendations and disposition. (FARZAD HEATON) - Related Data Allergies/Adverse Reactions: cefazolin [Cefazolin] Allergy (Intermediate, Verified 09/20/16 14:22) Hives hydromorphone HCl [From Dilaudid] Allergy (Mild, Verified 09/20/16 14:22) Facial edema and rash Sulfa (Sulfonamide Antibiotics) Allergy (Mild, Verified 09/20/16 14:22) erythromycin base [Erythromycin Base] Allergy (Unknown, Verified 09/20/16 14:22) cephalexin [Cephalexin] Allergy (Verified 09/20/16 14:22) cortisone [Cortisone] Allergy (Verified 09/20/16 14:22) Penicillins Allergy (Verified 09/20/16 14:22) Past Medical History - Social History Smoking Status: Current Every Day Smoker Chew tobacco use (# tins/day): No Frequency of alcohol use: Rare Drug Abuse: None Family History: Reviewed & Not Pertinent, Arthritis, CAD, CVA, DM, Hyperlipidemia, Hypertension, Malignancy, Thyroid Disfunction, Other - Kidney stones Patient has suicidal ideation: Yes Patient has homicidal ideation: Yes - Past Medical History Cardiac Medical History: Reports: Hx Hypertension Denies: Hx Congestive Heart Failure, Hx Heart Attack Pulmonary Medical History: Reports: Hx Asthma, Hx Bronchitis, Hx Pneumonia Denies: Hx COPD, Hx Tuberculosis Neurological Medical History: Reports: Hx Migraine. Denies: Hx Seizures Renal/ Medical History: Reports: Hx Kidney Stones, Hx Ovarian Cysts. Denies: Hx End Stage Renal Disease, Hx Peritoneal Dialysis GI Medical History: Reports: Hx Diverticulitis, Hx Gastroesophageal Reflux Disease, Hx Irritable Bowel. Denies: Hx Cirrhosis, Hx Ulcer Musculoskeltal Medical History: Reports Hx Arthritis - back, Denies Hx Multiple Sclerosis, Reports Hx Musculoskeletal Trauma Skin Medical History: Reports Hx MRSA Psychiatric Medical History: Reports: Hx Anxiety, Hx Bipolar Disorder, Hx Depression, Hx Post Traumatic Stress Disorder Denies: Hx Schizophrenia Traumatic Medical History: Reports: Hx Fractures - hand Infectious Medical History: Reports: Hx MRSA Past Surgical History: Reports: Hx Abdominal Surgery, Hx Section - x 2 , Hx Cholecystectomy, Hx Dilation and Curettage, Hx Gynecologic Surgery - D & C , Hx Hysterectomy, Hx Tubal Ligation. Denies: Hx Pacemaker - Immunizations Immunizations up to date: Yes Hx Diphtheria, Pertussis, Tetanus Vaccination: Yes - 2011 Hx Pneumococcal Vaccination: 11/10/11 <FARZAD HEATON - Last Filed: 09/20/16 16:57> Course - Laboratory Result Diagrams: 09/20/16 14:35 09/20/16 14:35 <FARZAD HEATON - Last Filed: 09/20/16 16:57> - Laboratory Result Diagrams: 09/20/16 14:35 09/20/16 14:35 <MANJEET LINDSEY - Last Filed: 09/20/16 18:17> - Re-evaluation Re-evalutation: 09/20/16 18:16 At this time I did go to reevaluate the patient has had at this time our psychiatric team think patient can be discharged home. Patient still careful explained that she does not think she can go home but now that she is still suicidal. Patient states that she has a plan to go home and obtain her 22 caliber pistol and should herself in the head. Friend at bedside confirms guns. At this time I do not feel that we will be able to now safely discharge this patient has that now she is stating a specific plan. Patient will be given her BuSpar as suggested by our psychiatric team 10 mg twice a day. I will proceed with IVC paperwork at this time patient can be reevaluated in the morning. (MANJEET LINDSEY) - Vital Signs Vital signs: Temp Pulse Resp BP Pulse Ox 98.2 F 110 H 18 148/84 H 97 09/20/16 14:22 09/20/16 14:22 09/20/16 14:22 09/20/16 14:22 09/20/16 14:22 - Laboratory Laboratory results interpreted by me: 09/20/16 14:35 Glucose 128 H Salicylates < 1.0 L Acetaminophen < 10 L Discharge <FARZAD HEATON - Last Filed: 09/20/16 16:57> <MANJEET LINDSEY - Last Filed: 09/20/16 18:17> - Discharge Clinical Impression: Depressive disorder, Anxiety Condition: Stable Disposition: HOME, SELF-CARE Additional Instructions: DEPRESSION: Your evaluation reveals that you have mental depression. While symptoms may be vague, they often include disturbance of sleep, fatigue, loss of appetite , and general loss of interest in life. While depression may be a side effect of drugs, or a reaction to a major change in your life, many cases have no known cause. If depression is acute, and related to a major loss in your life, you can expect it to clear completely with time. If you have been depressed a long time , are prone to repeated bouts of depression or low mood, or have been thinking of suicide, get help. Depression can be treated with anti-depressant medication and counselling. Long-term depression will often take a few weeks to clear, even with appropriate medication. Follow-up care is important. SUICIDAL IDEATION: Suicidal ideation is a common medical term for thoughts about suicide, which may be as detailed as a formulated plan, without the suicidal act itself. Although most people who undergo suicidal ideation do not commit suicide, some go on to make suicide attempts. The range of suicidal ideation varies greatly from fleeting to detailed planning, role playing, and unsuccessful attempts. While thoughts about suicide are common, most people do not carry out serious actions to commit suicide. Based upon your evaluation and discussion with you, we do not believe you are currently at risk to act upon your thoughts of suicide. You have agreed to return to the Emergency Department, at any time , if you feel inclined to act upon your suicidal thoughts. FOLLOW-UP CARE: Follow-up with [facility] on mental health treatment on your previously scheduled October 01 appointment. If you experience worsening or a significant change in your symptoms, notify the physician immediately or return to the Emergency Department at any time for re-evaluation. Prescriptions: Buspirone HCl [Buspar 10 mg Tablet] 10 mg PO BID 14 Days Referrals: [facility] [Primary Care Provider] - Follow up as needed [facility] [Provider Group] - 10/01/16
[2016-09-20] MEDS ORDERED: ACETAMINOPHEN 325 MG TABLET ONE (19:06)
[2016-09-20] MEDS ORDERED: DIPHENHYDRAMINE HCL 50 MG CAPSULE PO ONE (21:17)
--- NOTE | 2016-09-20 21:44 | EKG REPORT ---
SEVERITY:- BORDERLINE ECG - SINUS TACHYCARDIA CONSIDER ANTERIOR INFARCT : Confirmed by: Robert Juárez 20-Sep-2016 21:43:37
[2016-09-21] MEDS ORDERED: HYDROCORTISONE ACETATE 25 MG SUPP.RECT PR ONE (02:11)
[2016-09-21] MEDS ORDERED: PHENYLEPHRINE HCL 1 EACH SUPP.RECT PR ONE ×2 (02:13→02:32)
[2016-09-21] MEDS: BUSPIRONE HCL 10 MG TABLET PO SCH ×2 (09:50→17:38)
[2016-09-21] MEDS ORDERED: DIVALPROEX SODIUM 250 MG TABLET.DR PO SCH (14:00)
[2016-09-21] MEDS ORDERED: NICOTINE 14 MG/24 HR PATCH.TD24 TD PRN (15:33)
[2016-09-21] MEDS ORDERED: HYDROXYZINE PAMOATE 25 MG CAPSULE PO PRN (15:33)
--- NOTE | 2016-09-21 16:34 | ER Document Report ---
Doctor's Note Notes: 09/21/16 16:33 Patient still very tearful, mood quite labile, will be started on Depakote as a mood stabilizer. We still feel that she is potentially a danger to herself, will be reevaluated in the morning after starting Depakote. Maintain IVC at this time 09/21/16 16:33 Patient requests medication for anxiety and is a smoker. Patient has had Vistaril prescribed every 6 hours as needed as well as a NicoDerm patch. Environmental therapy has been ordered as well.
[2016-09-21] MEDS ORDERED: ACETAMINOPHEN 325 MG TABLET ONE (17:03)
[2016-09-21] MEDS ORDERED: NAPROXEN 375 MG TABLET PO ONE (18:30)
[2016-09-21] MEDS: DIVALPROEX SODIUM 250 MG TABLET.DR PO SCH (23:22)
[2016-09-22] MEDS ORDERED: ACETAMINOPHEN 325 MG TABLET PO ONE (03:27)
[2016-09-22] MEDS ORDERED: DIPHENHYDRAMINE HCL 50 MG CAPSULE PO ONE (03:37)
[2016-09-22] MEDS: BUSPIRONE HCL 10 MG TABLET PO SCH (09:27)
[2016-09-22] MEDS: DIVALPROEX SODIUM 250 MG TABLET.DR PO SCH (09:27)
--- NOTE | 2016-09-22 09:45 | ER Document Report ---
Doctor's Note Notes: 09/22/16 09:43 Rounds: Chart reviewed and patient reviewed. Patient is smiling and happy this morning. Does not appear to be depressed and has no suicidal thoughts. Vital signs of all remained normal during her stay here. Lab studies have all been normal except for being positive for marijuana on her drug screen. Patient appears to be medically stable for transfer or discharge. Patient has been assessed and evaluated by mental health and feels she can be discharged for outpatient follow-up. Prescriptions for Depakote 250 twice daily and BuSpar 10 mg twice daily and Vistaril as needed are provided to the patient. Follow-up with [facility] on October 01. uLcita Ellsworth MD
[2016-09-22 09:47] VITALS: BP 147/86
== END 2016-09-22 09:47 | disposition home or self-care (01) ==
LOC: ER 14:18
DX: F31.0 Bipolar disorder, current episode hypomanic (principal); F41.9 Anxiety disorder, unspecified; R45.851 Suicidal ideations; R45.850 Homicidal ideations; M25.551 Pain in right hip; G89.29 Other chronic pain; F17.200 Nicotine dependence, unspecified, uncomplicated; Z88.5 Allergy status to narcotic agent; Z88.2 Allergy status to sulfonamides; Z88.1 Allergy status to other antibiotic agents; Z88.0 Allergy status to penicillin; Z88.8 Allergy status to other drugs, medicaments and biological substances; I10 Essential (primary) hypertension; J45.909 Unspecified asthma, uncomplicated; K60.2 Anal fissure, unspecified; K64.9 Unspecified hemorrhoids
CPT/HCPCS: 36415; 80053; 80307; 81001; 85025; 93005; 93010; 99284

== ENCOUNTER 2016-12-16 17:25 | Emergency (ER) | payer SELFPAY ==
[2016-12-16] MEDS ORDERED: KETOROLAC TROMETHAMINE 60 MG/2 ML SDV IM ONE (17:54)
[2016-12-16] MEDS ORDERED: PROMETHAZINE HCL 25 MG TABLET PO ONE ×2 (18:02→19:58)
--- NOTE | 2016-12-16 18:03 | ER Document Report ---
ED General - General Chief Complaint: Abdominal Pain Stated Complaint: LEFT SIDE ABDOMINAL PAIN,NAUSEA Time Seen by Provider: 12/16/16 17:47 Mode of Arrival: Ambulatory Information source: Patient Notes: 46-year-old female presents with 2 day duration of nausea vomiting diarrhea as well as dark urine left lower quadrant abdominal pain right lower quadrant abdominal pain and flank pain Patient denies any fevers [facility] TRAVEL OUTSIDE OF THE [place].S. IN LAST 30 DAYS: No - HPI Onset: Other - 2 day duration Onset/Duration: Persistent Quality of pain: Achy Severity: Mild Pain Level: 1 Associated symptoms: Diarrhea, Nausea, Vomiting Exacerbated by: Denies Relieved by: Denies Similar symptoms previously: No Recently seen / treated by doctor: No - Related Data Allergies/Adverse Reactions: cefazolin [Cefazolin] Allergy (Intermediate, Verified 12/16/16 17:28) Hives hydromorphone HCl [From Dilaudid] Allergy (Mild, Verified 12/16/16 17:28) Facial edema and rash Sulfa (Sulfonamide Antibiotics) Allergy (Mild, Verified 12/16/16 17:28) erythromycin base [Erythromycin Base] Allergy (Unknown, Verified 12/16/16 17:28) cephalexin [Cephalexin] Allergy (Verified 12/16/16 17:28) cortisone [Cortisone] Allergy (Verified 12/16/16 17:28) Penicillins Allergy (Verified 12/16/16 17:28) Past Medical History - Social History Smoking Status: Current Every Day Smoker Cigarette use (# per day): Yes Chew tobacco use (# tins/day): No Smoking Education Provided: No Frequency of alcohol use: Rare Drug Abuse: None Family History: Reviewed & Not Pertinent, Arthritis, CAD, CVA, DM, Hyperlipidemia, Hypertension, Malignancy, Thyroid Disfunction, Other - Kidney stones - Past Medical History Cardiac Medical History: Reports: Hx Hypertension Denies: Hx Congestive Heart Failure, Hx Heart Attack Pulmonary Medical History: Reports: Hx Asthma, Hx Bronchitis, Hx Pneumonia Denies: Hx COPD, Hx Tuberculosis Neurological Medical History: Reports: Hx Migraine. Denies: Hx Seizures Renal/ Medical History: Reports: Hx Kidney Stones, Hx Ovarian Cysts. Denies: Hx End Stage Renal Disease, Hx Peritoneal Dialysis GI Medical History: Reports: Hx Diverticulitis, Hx Gastroesophageal Reflux Disease, Hx Irritable Bowel. Denies: Hx Cirrhosis, Hx Ulcer Musculoskeltal Medical History: Reports Hx Arthritis - back, Denies Hx Multiple Sclerosis, Reports Hx Musculoskeletal Trauma Skin Medical History: Reports Hx MRSA Psychiatric Medical History: Reports: Hx Anxiety, Hx Bipolar Disorder, Hx Depression, Hx Post Traumatic Stress Disorder Denies: Hx Schizophrenia Traumatic Medical History: Reports: Hx Fractures - hand Infectious Medical History: Reports: Hx MRSA Past Surgical History: Reports: Hx Abdominal Surgery, Hx Section - x 2 , Hx Cholecystectomy, Hx Dilation and Curettage, Hx Gynecologic Surgery - D & C , Hx Hysterectomy, Hx Tubal Ligation. Denies: Hx Pacemaker - Immunizations Immunizations up to date: Yes Hx Diphtheria, Pertussis, Tetanus Vaccination: Yes - 2011 Hx Pneumococcal Vaccination: 11/10/11 Review of Systems - Review of Systems Notes: REVIEW OF SYSTEMS: CONSTITUTIONAL : Denies fever, chills, or sweats. Denies recent illness. EENT: Denies eye, ear, throat, or mouth pain or symptoms. Denies nasal or sinus congestion or discharge. Denies throat, tongue, or mouth swelling or difficulty swallowing. CARDIOVASCULAR: Denies chest pain. Denies palpitations or racing or irregular heart beat. Denies ankle edema. RESPIRATORY: Denies cough, cold, or chest congestion. Denies shortness of breath, difficulty breathing, or wheezing. GASTROINTESTINAL: Admits to left lower quadrant abdominal pain nausea vomiting diarrhea GENITOURINARY: Denies difficulty urinating, painful urination, burning, frequency, blood in urine, or discharge. FEMALE GENITOURINARY: Denies vaginal bleeding, heavy or abnormal periods, irregular periods. Denies vaginal discharge or odor. MUSCULOSKELETAL: Denies back or neck pain or stiffness. Denies joint pain or swelling. SKIN: Denies rash, lesions or sores. HEMATOLOGIC : Denies easy bruising or bleeding. LYMPHATIC: Denies swollen, enlarged glands. NEUROLOGICAL: Denies confusion or altered mental status. Denies passing out or loss of consciousness. Denies dizziness or lightheadedness. Denies headache. Denies weakness or paralysis or loss of use of either side. Denies problems with gait or speech. Denies sensory loss, numbness, or tingling. Denies seizures. PSYCHIATRIC: Denies anxiety or stress. Denies depression, suicidal ideation, or homicidal ideation. ALL OTHER SYSTEMS REVIEWED AND NEGATIVE. PHYSICAL EXAMINATION: GENERAL: Well-appearing, well-nourished and in no acute distress. HEAD: Atraumatic, normocephalic. EYES: Pupils equal round and reactive to light, extraocular movements intact, conjunctiva are normal. ENT: Nares patent, oropharynx clear without exudates. Moist mucous membranes. NECK: Normal range of motion, supple without lymphadenopathy LUNGS: Breath sounds clear to auscultation bilaterally and equal. No wheezes rales or rhonchi. HEART: Regular rate and rhythm without murmurs ABDOMEN: Mild bilateral lower quadrant abdominal pain mild bilateral CVA tenderness Female : deferred Musculoskeletal: Normal range of motion, no pitting or edema. No cyanosis. NEUROLOGICAL: Cranial nerves grossly intact. Normal speech, normal gait. Normal sensory, motor exams PSYCH: Normal mood, normal affect. SKIN: Warm, Dry, normal turgor, no rashes or lesions noted. Dictation was performed using [employer] voice recognition software Physical Exam - Vital signs Vitals: Temp Pulse Resp BP Pulse Ox 97.7 F 92 20 137/92 H 98 12/16/16 17:28 12/16/16 17:28 12/16/16 17:28 12/16/16 17:28 12/16/16 17:28 Course - Re-evaluation Re-evalutation: 12/16/16 18:03 Vital signs are stable, patient is probable pyelonephritis 12/16/16 20:49 Lab work imaging noted no significant abnormality, looking back this is her eighth visit with similar complaints with absolutely no findings. There is concern for secondary gains Otherwise patient looks well is in no distress will be discharged home with follow-up with GI Patient has no tenderness in the pelvic region After performing a Medical Screening Examination, I estimate there is LOW risk for ACUTE APPENDICITIS, BOWEL OBSTRUCTION, ACUTE CHOLECYSTITIS, PERFORATED DIVERTICULITIS, INCARCERATED HERNIA, PANCREATITIS, PELVIC INFLAMMATORY DISEASE, PERFORATED ULCER, ECTOPIC , or TUBO-OVARIAN ABSCESS, thus I consider the discharge disposition reasonable. Also, there is no evidence or peritonitis , sepsis, or toxicity. I have reevaluated this patient multiple times and no significant life threatening changes are noted. The patient and I have discussed the diagnosis and risks, and we agree with discharging home with close follow-up with the understanding that symptoms and presentations can change. We also discussed returning to the Emergency Department immediately if new or worsening symptoms occur. We have discussed the symptoms which are most concerning (e.g., bloody stool, fever, changing or worsening pain, vomiting) that necessitate immediate return. - Vital Signs Vital signs: Temp Pulse Resp BP Pulse Ox 98.1 F 70 19 136/90 H 99 12/16/16 20:11 12/16/16 20:11 12/16/16 20:11 12/16/16 20:11 12/16/16 20:11 - Laboratory Result Diagrams: 12/16/16 18:33 12/16/16 18:33 Laboratory results interpreted by me: 12/16/16 12/16/16 18:33 18:33 RBC 5.29 H Hgb 16.1 H Chloride 110 H Carbon Dioxide 19 L - Diagnostic Test Radiology reviewed: Image reviewed, Reports reviewed - No acute abnormality Discharge - Discharge Clinical Impression: Abdominal pain Qualifiers: Abdominal location: lower abdomen, unspecified Qualified Code(s): R10.30 - Lower abdominal pain, unspecified Condition: Stable Disposition: HOME, SELF-CARE Instructions: Abdominal Pain ([facility]) Prescriptions: Dicyclomine HCl [Bentyl 20 mg Tablet] 20 mg PO QID #40 tablet Promethazine HCl [Phenergan 25 mg Tablet] 1 - 2 tab PO Q6H PRN #15 tablet PRN Reason: Referrals: JANAE NORIEGA MD [ACTIVE STAFF] - Follow up tomorrow
[2016-12-16 18:48] LABS: ABSOLUTE BASOPHILS # (AUTO) 0.1 10^3/uL (0.0-0.2); ABSOLUTE EOSINOPHILS # (AUTO) 0.3 10^3/uL (0.0-0.6); ABSOLUTE LYMPHOCYTES (AUTO) 3.7 10^3/uL (0.5-4.7); ABSOLUTE MONOCYTES (AUTO) 0.6 10^3/uL (0.1-1.4); ABSOLUTE NEUT (AUTO) 5.1 10^3/uL (1.7-8.2); BASOPHILS % (AUTO) 1.1 % (0-2); HEMATOCRIT 45.5 % (36.0-47.0); HEMOGLOBIN 16.1 g/dL (12.0-15.5); HGB HCT DIFFERENCE 2.8; LYMPHOCYTES % (AUTO) 37.6 % (13-45); MEAN CORPUSCULAR HEMOGLOBIN 30.5 pg (27.0-33.4); MEAN CORPUSCULAR HGB CONC 35.4 g/dL (32.0-36.0); MEAN CORPUSCULAR VOLUME 86 fl (80-97); MONOCYTES % (AUTO) 5.8 % (3-13); RED BLOOD COUNT 5.29 10^6/uL (3.72-5.28); RED CELL DISTRIBUTION WIDTH 13.1 % (11.5-14.0); SEGMENTED NEUTROPHILS % (AUTO) 52.5 % (42-78); WHITE BLOOD COUNT 9.8 10^3/uL (4.0-10.5)
[2016-12-16 18:53] LABS: APPEARANCE,URINE SLIGHTLY-CLOUDY; BILIRUBIN,URINE NEGATIVE (NEGATIVE); GLUCOSE, URINE NEGATIVE (NEGATIVE); KETONES,URINE NEGATIVE (NEGATIVE); LEUKOCYTE ESTERASE,URINE NEGATIVE (NEGATIVE); NITRITE,URINE NEGATIVE (NEGATIVE); PROTEIN,URINE NEGATIVE (NEGATIVE); URINE SPECIFIC GRAVITY 1.025; UROBILINOGEN,URINE NEGATIVE mg/dL (<2.0)
[2016-12-16] MEDS ORDERED: OXYCODONE-ACETAMINOPHEN 5-325 MG TABLET PO ONE ×2 (18:53→19:58)
[2016-12-16 19:11] LABS: ALANINE AMINOTRANSFERASE 35 U/L (9-52); ALBUMIN 4.2 g/dL (3.5-5.0); ALKALINE PHOSPHATASE 47 U/L (38-126); ANION GAP 13 (5-19); ASPARTATE AMINO TRANSFERASE 25 U/L (14-36); BILIRUBIN,DIRECT 0.3 mg/dL (0.0-0.4); BILIRUBIN,TOTAL 0.5 mg/dL (0.2-1.3); BLOOD UREA NITROGEN 13 mg/dL (7-20); CALCIUM 9.3 mg/dL (8.4-10.2); CARBON DIOXIDE 19 mmol/L (22-30); CHLORIDE 110 mmol/L (98-107); CREATININE RESULT 0.85 mg/dL (0.52-1.25); GLUCOSE 87 mg/dL (75-110); LIPASE 74.1 U/L (23-300); POTASSIUM 4.4 mmol/L (3.6-5.0); SODIUM 142.4 mmol/L (137-145); TOTAL PROTEIN 7.2 g/dL (6.3-8.2)
--- NOTE | 2016-12-16 19:57 | RADIOLOGY REPORT (SQ) ---
EXAM DESCRIPTION: CT ABD/PELVIS WITH IV ONLY COMPLETED DATE/TIME: 12/16/2016 7:38 pm REASON FOR STUDY: bilateral lower quadrant abd pain COMPARISON: April 2015, December 2015, January 2015, April 2014 TECHNIQUE: CT scan of the abdomen and pelvis performed using helical scanning technique with dynamic intravenous contrast injection. No oral contrast. Images reviewed with lung, soft tissue, and bone windows. Reconstructed coronal and sagittal MPR images reviewed. Delayed images for evaluation of the urinary system also acquired. All images stored on PACS. All CT scanners at this facility use dose modulation, iterative reconstruction, and/or weight based d osing when appropriate to reduce radiation dose to as low as reasonably achievable (ALARA). [facility]: Dose Right [facility]: CareDose [facility]: Dose Right [facility]: Teradose 4D [facility]: FireScope CONTRAST TYPE AND DOSE: contrast/concentration: Isovue 370.00 mg/ml; Total Contrast Delivered: 100.0 ml; Total Saline Delivered: 70.0 ml RENAL FUNCTION: None required. The patient is less than 50 years old. RADIATION DOSE: Up-to-date CT equipment and radiation dose reduction techniques were employed. CTDIv ol: 26.6 - 30.4 mGy. DLP: 2926 mGy-cm.. LIMITATIONS: None. FINDINGS: LOWER CHEST: No significant findings. No nodules or infiltrates. LIVER: Normal size. No masses. No dilated ducts. SPLEEN: Normal size. No focal lesions. PANCREAS: No masses. No significant calcifications. No adjacent inflammation or peripancreatic fluid collections. Pancreatic duct not dilated. GALLBLADDER: Surgically absent. ADRENAL GLANDS: No significant masses or asymmetry. RIGHT KIDNEY AND URETER: No solid masses. No significant calcifications. No hydronephrosis or hyd roureter. LEFT KIDNEY AND URETER: No solid masses. No significant calcifications. No hydronephrosis or hydr oureter. AORTA AND VESSELS: No aneurysm. No dissection. Renal arteries, SMA, celiac without stenosis. RETROPERITONEUM: No retroperitoneal adenopathy, hemorrhage or masses. BOWEL AND PERITONEAL CAVITY: Diverticulosis. No diverticulitis. APPENDIX: Normal. PELVIS: No mass. No free fluid. Normal bladder. ABDOMINAL WALL: No masses. No hernias. BONES: No significant or acute findings. OTHER: No other significant finding. IMPRESSION: NO SIGNIFICANT OR ACUTE FINDING IN THE ABDOMEN OR PELVIS ON CT SCAN WITH IV CONTRAST. TECHNICAL DOCUMENTATION: JOB ID: [id number] Quality ID # [id number]: Final reports with documentation of one or more dose reduction techniques (e.g., Au tomated exposure control, adjustment of the mA and/or kV according to patient size, use of iterative reconstruction technique) 2010 [employer]- All Rights Reserved
[2016-12-16 20:14] VITALS: BP 136/90
== END 2016-12-16 20:15 | disposition home or self-care (01) ==
LOC: ER 17:25
DX: R10.30 Lower abdominal pain, unspecified (principal); R11.2 Nausea with vomiting, unspecified; R19.7 Diarrhea, unspecified; F17.210 Nicotine dependence, cigarettes, uncomplicated; I10 Essential (primary) hypertension; Z88.2 Allergy status to sulfonamides; Z88.3 Allergy status to other anti-infective agents; Z88.0 Allergy status to penicillin; Z87.442 Personal history of urinary calculi; Z86.14 Personal history of Methicillin resistant Staphylococcus aureus infection; Z90.49 Acquired absence of other specified parts of digestive tract; Z90.710 Acquired absence of both cervix and uterus
CPT/HCPCS: 99284; 96372; 36415; 83690; 85025; 81025; 80053; 81001; 74177; J1885

== ENCOUNTER 2017-03-25 12:22 | Emergency (ER) | payer SELFPAY ==
[2017-03-25] MEDS ORDERED: CEPHALEXIN 500 MG CAPSULE PO ONE (13:51)
[2017-03-25] MEDS ORDERED: LIDOCAINE 2% VISCOUS SOLN 20 ML UDCUP PO ONE (13:51)
[2017-03-25] MEDS ORDERED: BUPIVACAINE HCL 0.5 % INJ/PF 30 ML SDV INJ ONE (14:08)
--- NOTE | 2017-03-25 14:11 | ER Document Report ---
ED Oral Problem - General Chief Complaint: Toothache Stated Complaint: TOOTH PAIN Time Seen by Provider: 03/25/17 13:36 Mode of Arrival: Ambulatory Information source: Patient Notes: 47-year-old female presented ED for complaint of broken teeth on the right lower jaw. She states that these broke yesterday. TRAVEL OUTSIDE OF THE [place] IN LAST 30 DAYS: No - HPI Patient complains to provider of: Toothache Onset: Yesterday Onset: Gradual Quality of pain: Sharp, Throbbing Severity: Severe Pain Level: 5 Associated symptoms: Jaw pain, Toothache Worsened by: Cold Relieved by: Nothing Similar symptoms previously: Yes Recently seen / treated by doctor/dentist: No - Related Data Allergies/Adverse Reactions: cefazolin [Cefazolin] Allergy (Intermediate, Verified 03/25/17 12:22) Hives hydromorphone HCl [From Dilaudid] Allergy (Mild, Verified 03/25/17 12:22) Facial edema and rash Sulfa (Sulfonamide Antibiotics) Allergy (Mild, Verified 03/25/17 12:22) erythromycin base [Erythromycin Base] Allergy (Unknown, Verified 03/25/17 12:22) cephalexin [Cephalexin] Allergy (Verified 03/25/17 12:22) cortisone [Cortisone] Allergy (Verified 03/25/17 12:22) Penicillins Allergy (Verified 03/25/17 12:22) Past Medical History - General Information source: Patient - Social History Smoking Status: Current Every Day Smoker Cigarette use (# per day): Yes Chew tobacco use (# tins/day): No Smoking Education Provided: Yes - 4 minutes Frequency of alcohol use: None Drug Abuse: None Lives with: Family Family History: Arthritis, CAD, CVA, DM, Hyperlipidemia, Hypertension, Malignancy, Thyroid Disfunction, Other - Kidney stones Patient has suicidal ideation: No Patient has homicidal ideation: No - Past Medical History Cardiac Medical History: Reports: Hx Hypertension Pulmonary Medical History: Reports: Hx Asthma, Hx Bronchitis, Hx Pneumonia EENT Medical History: Reports: None Neurological Medical History: Reports: Hx Migraine Endocrine Medical History: Reports: None Renal/ Medical History: Reports: Hx Kidney Stones, Hx Ovarian Cysts Malignancy Medical History: Reports: None GI Medical History: Reports: Hx Diverticulitis, Hx Gastroesophageal Reflux Disease, Hx Irritable Bowel Musculoskeltal Medical History: Reports Hx Arthritis - back, Reports Hx Musculoskeletal Trauma Skin Medical History: Reports Hx MRSA Psychiatric Medical History: Reports: Hx Anxiety, Hx Bipolar Disorder, Hx Depression, Hx Post Traumatic Stress Disorder Traumatic Medical History: Reports: Hx Fractures - hand Infectious Medical History: Reports: Hx MRSA Past Surgical History: Reports: Hx Abdominal Surgery, Hx Section - x 2 , Hx Cholecystectomy, Hx Dilation and Curettage, Hx Gynecologic Surgery - D & C , Hx Hysterectomy, Hx Tubal Ligation - Immunizations Immunizations up to date: Yes Hx Diphtheria, Pertussis, Tetanus Vaccination: Yes - 2011 Hx Pneumococcal Vaccination: 11/10/11 Review of Systems - Review of Systems Constitutional: No symptoms reported EENT: Mouth pain, Dental problem Cardiovascular: No symptoms reported Respiratory: No symptoms reported Gastrointestinal: No symptoms reported Genitourinary: No symptoms reported Female Genitourinary: No symptoms reported Musculoskeletal: No symptoms reported Skin: No symptoms reported Hematologic/Lymphatic: No symptoms reported Neurological/Psychological: No symptoms reported -: Yes All other systems reviewed and negative Physical Exam - Vital signs Vitals: Temp Pulse Resp BP Pulse Ox 97.8 F 87 22 H 161/94 H 98 03/25/17 12:25 03/25/17 12:25 03/25/17 12:25 03/25/17 12:25 03/25/17 12:25 Interpretation: Normal - General General appearance: Appears well, Alert - HEENT Head: Normocephalic, Atraumatic Eyes: Normal Pupils: PERRL Ears: Normal External canal: Normal Tympanic membrane: Normal Sinus: Normal Nasal: Normal Mouth/Lips: Caries Mucous membranes: Normal Teeth diagram: 1 - Very decayed broken teeth with redness to the gum surrounding the teeth with tenderness to touch for any of the teeth. She states that one of the teeth broke on Saturday. Pharynx: Normal Neck: Normal - Respiratory Respiratory status: No respiratory distress Chest status: Nontender Breath sounds: Normal Chest palpation: Normal - Cardiovascular Rhythm: Regular Heart sounds: Normal auscultation Murmur: No - Abdominal Inspection: Normal Distension: No distension Bowel sounds: Normal Tenderness: Nontender Organomegaly: No organomegaly - Back Back: Normal, Nontender - Extremities General upper extremity: Normal inspection, Nontender, Normal color, Normal ROM , Normal temperature General lower extremity: Normal inspection, Nontender, Normal color, Normal ROM , Normal temperature, Normal weight bearing. No: Louie's sign - Neurological Neuro grossly intact: Yes Cognition: Normal Orientation: AAOx4 [place] Coma Scale Eye Opening: Spontaneous [place] Coma Scale Verbal: Oriented [place] Coma Scale Motor: Obeys Commands [place] Coma Scale Total: 15 Speech: Normal Motor strength normal: LUE, RUE, LLE, RLE Sensory: Normal - Psychological Associated symptoms: Normal affect, Normal mood - Skin Skin Temperature: Warm Skin Moisture: Dry Skin Color: Normal Course - Re-evaluation Re-evalutation: 03/25/17 21:02 Inferior alveolar nerve block with 5 cc of bupivacaine given for pain in teeth #31,30, and 29. Patient was given viscous lidocaine first and then the block patient received good relief from pain with the block. Patient was discharged home with prescriptions for Keflex for infection and viscous lidocaine for pain when the block wore off. - Vital Signs Vital signs: Temp Pulse Resp BP Pulse Ox 97.8 F 79 22 H 144/91 H 98 03/25/17 12:25 03/25/17 14:21 03/25/17 12:25 03/25/17 14:21 03/25/17 14:21 Discharge - Discharge Clinical Impression: Pain due to dental caries Condition: Stable Disposition: HOME, SELF-CARE Additional Instructions: TOOTHACHE: Your pain is due to dental decay. The tooth must be repaired in order for you to feel better. You will, therefore, be referred to a dentist. We do not have dentists on the staff at [facility]. Severe swelling or drainage around a tooth usually means a dental abscess. This also requires evaluation and treatment by the dentist, but antibiotics may be prescribed while awaiting dental treatment. You should be rechecked immediately if you develop major swelling of the face, increasing pain, a lump in the jaw or gums, headache, difficulty swallowing, or fever. ORAL NARCOTIC MEDICATION: You have been given a prescription for pain control. This medication is a narcotic. It's best taken with food, as nausea can result if taken on an empty stomach. Don't operate machinery or drive within six hours of taking this medication. Do not combine this medicine with alcohol, or with any medication which can cause sedation (such as cold tablets or sleeping pills) unless you get permission from the physician. Narcotics tend to cause constipation. If possible, drink plenty of fluids and eat a diet high in fiber and fruits. Please be aware that prescription narcotics also have the potential for abuse. People become addicted to these medications because of the general sense of wellbeing that they induce. This feeling along with a significant reduction in tension, anxiety, and aggression provides a stimulating seductive quality to these drugs. Once your pain is under control, we encourage you to discard your unused narcotics. Cephalexin The antibiotic you've been prescribed is a member of the cephalosporin class. This type of antibiotic covers a wide variety of infections, including those of the skin, lungs, and urinary tract. It's useful for staph infections. This antibiotic is slightly similar to the penicillin family. In rare cases , a person who is allergic to penicillin will also be allergic to this medication. If you have had a severe allergic reaction to penicillin, and have not taken this antibiotic since that time, notify your doctor. Antibiotics which cover many germs ("broad spectrum" antibiotics) are more likely to cause diarrhea or "yeast" infections. Women prone to vaginal yeast problems may suffer an attack after taking this antibiotic. In infants, oral thrush (white spots "stuck" on the cheek) or yeast diaper rash may result. See your doctor if these problems occur. Call at once if you develop itching, hives , shortness of breath, or lightheadedness. FOLLOW-UP CARE: You have been referred for follow-up care to the dentists listed below. Call the dentists office for an appointment as you were instructed or within the next two days. If you experience worsening or a significant change in your symptoms, notify the physician immediately or return to the Emergency Department at any time for re-evaluation. [facility] [address] [place], [place] Saturday mornings, by appointment [facility] [address] [place] [address] [facility] [place] [address] [facility] [address] [facility] ([facility] [place] Emergency Department [facility] [address] [email or web address] [address] [place] [address] Saturday- 8:00am to 5:00 pm Will see patients from other [facility]. Charges based on income and family size and accepts Medicare, Medicaid, and Insurances Will pull molars [facility] [phone] Hours of Operation 8:00 am - 4:30 pm weekdays The following dental offices accept Medicaid: [facility] Dr. Rock Dr. Saxena Dr. Quarles Dr. Taveras Maxi Mehta, Saira, and Audrey oral surgery Dr. Mehta ([place]) Dr. Whitfield ([place]) [facility] Drs. Davila ([place]) Dr. Aggarwal ([place]) [facility] Dr. Cash ([place]) Drs. Goins and ([place]) Medicaid Care Line Prescriptions: Cephalexin Monohydrate [Keflex 500 mg Capsule] 500 mg PO BID 10 Days capsule Forms: Elevated Blood Pressure, Smoking Cessation Education
[2017-03-25 14:24] VITALS: BP 144/91
== END 2017-03-25 14:24 | disposition home or self-care (01) ==
LOC: ER 12:22
DX: K02.9 Dental caries, unspecified (principal); K08.89 Other specified disorders of teeth and supporting structures; I10 Essential (primary) hypertension; J45.909 Unspecified asthma, uncomplicated; F17.210 Nicotine dependence, cigarettes, uncomplicated; Z71.6 Tobacco abuse counseling; Z88.1 Allergy status to other antibiotic agents; Z88.5 Allergy status to narcotic agent; Z88.2 Allergy status to sulfonamides; Z88.0 Allergy status to penicillin; Z88.8 Allergy status to other drugs, medicaments and biological substances; Z86.14 Personal history of Methicillin resistant Staphylococcus aureus infection
CPT/HCPCS: 99406; 99282; 64400; J3490

== ENCOUNTER 2018-04-01 11:40 | Emergency (ER) | payer SELFPAY ==
[2018-04-01] MEDS ORDERED: LIDOCAINE 5% (700 MG) TRANSDERMAL ADH..PATCH TP ONE (12:50)
[2018-04-01] MEDS ORDERED: OXYCODONE-ACETAMINOPHEN 5-325 MG TABLET PO ONE (12:50)
--- NOTE | 2018-04-01 12:52 | ER Document Report ---
ED General - General Chief Complaint: Back Pain Stated Complaint: BACK PAIN Time Seen by Provider: 04/01/18 12:33 Mode of Arrival: Ambulatory Information source: Patient Notes: 48-year-old female presented to ED for complaint of low back pain radiating down the right leg across the hip and down the leg. She has had this pain for many years. She states is been much worse for the last week. She states that [place] never knew how to diagnose her and she went to [place] and they told her she had degenerative disc disease with sciatica. Patient is very anxious and tearful but because of her pain. TRAVEL OUTSIDE OF THE [place] IN LAST 30 DAYS: No - HPI Onset: Other - Low back pain radiating across the buttocks across the right hip and down the leg chronic for many years worse for the last week Onset/Duration: Worse Quality of pain: Sharp, Throbbing Severity: Severe Pain Level: 5 Associated symptoms: Other - Low back pain radiating down right leg into the hip. She states that she has worsening of her chronic symptoms for the last week. Exacerbated by: Sitting, Standing, Movement Relieved by: Supine Similar symptoms previously: Yes Recently seen / treated by doctor: No - Related Data Allergies/Adverse Reactions: cefazolin [Cefazolin] Allergy (Intermediate, Verified 04/01/18 11:41) Hives hydromorphone HCl [From Dilaudid] Allergy (Mild, Verified 04/01/18 11:41) Facial edema and rash Sulfa (Sulfonamide Antibiotics) Allergy (Mild, Verified 04/01/18 11:41) erythromycin base [Erythromycin Base] Allergy (Unknown, Verified 04/01/18 11:41) cephalexin [Cephalexin] Allergy (Verified 04/01/18 11:41) cortisone [Cortisone] Allergy (Verified 04/01/18 11:41) Penicillins Allergy (Verified 04/01/18 11:41) Past Medical History - General Information source: Patient - Social History Smoking Status: Current Every Day Smoker Cigarette use (# per day): Yes Chew tobacco use (# tins/day): No Smoking Education Provided: Yes - Minutes Frequency of alcohol use: None Drug Abuse: None Lives with: Family Family History: Arthritis, CAD, CVA, DM, Hyperlipidemia, Hypertension, Malignancy, Thyroid Disfunction, Other - Kidney stones - Past Medical History Cardiac Medical History: Reports: Hx Hypertension Pulmonary Medical History: Reports: Hx Asthma, Hx Bronchitis, Hx Pneumonia EENT Medical History: Reports: None Neurological Medical History: Reports: Hx Migraine Endocrine Medical History: Reports: None Renal/ Medical History: Reports: Hx Kidney Stones, Hx Ovarian Cysts Malignancy Medical History: Reports: None GI Medical History: Reports: Hx Diverticulitis, Hx Gastroesophageal Reflux Disease, Hx Irritable Bowel Musculoskeletal Medical History: Reports Hx Arthritis - back, Reports Hx Musculoskeletal Trauma Skin Medical History: Reports Hx MRSA Psychiatric Medical History: Reports: Hx Anxiety, Hx Bipolar Disorder, Hx Depression, Hx Post Traumatic Stress Disorder Traumatic Medical History: Reports: Hx Fractures - hand Infectious Medical History: Reports: Hx MRSA Past Surgical History: Reports: Hx Abdominal Surgery, Hx Section - x 2, Hx Cholecystectomy, Hx Dilation and Curettage, Hx Gynecologic Surgery - D & C, Hx Hysterectomy, Hx Tubal Ligation. Denies: Hx Pacemaker - Immunizations Immunizations up to date: Yes Hx Diphtheria, Pertussis, Tetanus Vaccination: Yes - 2011 Hx Pneumococcal Vaccination: 11/10/11 Review of Systems - Review of Systems Constitutional: No symptoms reported EENT: No symptoms reported Cardiovascular: No symptoms reported Respiratory: No symptoms reported Gastrointestinal: No symptoms reported Genitourinary: No symptoms reported Female Genitourinary: No symptoms reported Musculoskeletal: Back pain - Across the hip and down the leg on the right side, Muscle pain, Muscle stiffness Skin: No symptoms reported Hematologic/Lymphatic: No symptoms reported Neurological/Psychological: No symptoms reported -: Yes All other systems reviewed and negative Physical Exam - Vital signs Vitals: Temp Pulse Resp BP Pulse Ox 97.7 F 91 24 H 138/82 H 96 04/01/18 11:47 04/01/18 11:47 04/01/18 11:47 04/01/18 11:47 04/01/18 11:47 Interpretation: Normal - General General appearance: Appears well, Alert - HEENT Head: Normocephalic, Atraumatic Eyes: Normal Pupils: PERRL - Respiratory Respiratory status: No respiratory distress Chest status: Nontender Breath sounds: Normal Chest palpation: Normal - Cardiovascular Rhythm: Regular Heart sounds: Normal auscultation Murmur: No - Abdominal Inspection: Normal Distension: No distension Bowel sounds: Normal Tenderness: Nontender Organomegaly: No organomegaly - Back Back: Normal, Tender, Vertebra tenderness. No: Deformity/step-off - Lumbar, CVA tenderness, Scars, Scoliosis, Wounds Notes: No signs or symptoms of cauda equina, no loss of control of bowel or bladder, no saddle anesthesia, no loss of control or sensation to lower extremities. Patient has a long history of chronic back pain but she states this is much worse than ever. Patient does not have the money to pay for a doctor and get followed up. - Extremities General upper extremity: Normal inspection, Nontender, Normal color, Normal ROM, Normal temperature General lower extremity: Normal inspection, Nontender, Normal color, Normal ROM, Normal temperature, Normal weight bearing. No: Louie's sign - Neurological Neuro grossly intact: Yes Cognition: Normal Orientation: AAOx4 Conway Coma Scale Eye Opening: Spontaneous Conway Coma Scale Verbal: Oriented Esau Coma Scale Motor: Obeys Commands Conway Coma Scale Total: 15 Speech: Normal Motor strength normal: LUE, RUE, LLE, RLE Sensory: Normal - Psychological Associated symptoms: Normal affect, Normal mood - Skin Skin Temperature: Warm Skin Moisture: Dry Skin Color: Normal Course - Re-evaluation Re-evalutation: 04/01/18 22:14 Patient was referred to the corporate event planner because she goes to [facility] and does not have any way to follow-up for her chronic pain that is much worse. Rashad Harvey the corporate event planner came and spoke with patient got her a appointment with [facility] as long as she went to the [facility] and got the [employer] statements and took them with her to the appointment. Patient also told the corporate event planner that she had a daughter to work to [facility] and that she would need a CD so she could give it to her daughter to take to the chronic pain management doctor to see if he could see her. She understands that she would have to work out payment plan with the [facility]. Patient states she is going straight from the back to the bank from the emergency room to get her bank statement and go to [facility] as she has been instructed. CD of all radiological test was given to patient for her to take to her primary care visit and to pain management. - Vital Signs Vital signs: Temp Pulse Resp BP Pulse Ox 97.7 F 86 16 122/81 98 04/01/18 11:47 04/01/18 13:59 04/01/18 13:59 04/01/18 13:59 04/01/18 13:59 - Diagnostic Test Radiology reviewed: Image reviewed, Reports reviewed Discharge - Discharge Clinical Impression: Degenerative disc disease, lumbar Chronic low back pain with sciatica Qualifiers: Back pain laterality: bilateral Sciatica laterality: sciatica of right side Qualified Code(s): M54.41 - Lumbago with sciatica, right side Degenerative joint disease (DJD) of hip Qualifiers: Osteoarthritis type: unspecified Laterality: bilateral Qualified Code(s): M16.0 - Bilateral primary osteoarthritis of hip Condition: Stable Disposition: HOME, SELF-CARE Instructions: Family Physicians / Practices Additional Instructions: Chronic Back Pain Chronic back pain (pain persisting longer than three months) is a common problem. A medical evaluation can look for herniated disc, arthritis, osteoporosis, tumors, and infections. But at least half the time, there's no obvious treatable cause. Anxiety and depression tend to worsen back pain. Ibuprofen or other anti-inflammatory medicine can help. A heating pad, used for 15-20 minutes at a time, can ease pain. For this type of back pain, narcotic medicines should be avoided. Muscle relaxers are rarely helpful unless you're having spasms. Activity is important. Find an aerobic exercise program that your back can tolerate. Too much rest makes back pain worse. Specific back exercises are usually prescribed to strengthen the back and abdominal muscles. Often, a physical therapist can help. Avoid heavy lifting, working while bent over, or standing with both knees straight. Most back pain patients do better with a firm mattress. If new symptoms of a "herniated disc" (radiation of pain, numbness, or tingling down the back of the leg or weakness in the leg) occur, you should be re-examined. Chronic Pain Control Stress, inactivity, and depression make pain more severe regardless of the cause of the pain. Stress and poor physical condition can cause pain such as headaches and backache. Relaxation: Rest in a quiet place with your eyes closed for 20 minutes twice daily. Concentrate on a pleasant image, or simply "feel" your breathing. Clear your mind. Stress management: Deal with your "stressors." Either take action, or eliminate the stressor from your life. Don't let things hang over you. Accept those things you can't change. Nutrition: Eat small, balanced meals -- don't skip, don't overeat. Meals should be high-carbohydrate, low-sugar, low-fat. Exercise: Exercise helps painful conditions and eases stress. Get 30 minutes of moderate exercise, five days a week. Do an activity that does not flare your pain. Precautions: Pain which continues to disrupt daily activities, or which changes in nature, requires a medical evaluation. Pain Clinic referral is available. We do not manage chronic pain in the Emergency Department. We will try to appropriately help you through an acute flare of your chronic painful condition, but for on-going chronic pain that does not improve, you will need to see your private doctor or apprentice painter brush. We do not provide repeated medication management of chronic painful conditions. If you wish, we can provide the name of local pain management physicians. ORAL NARCOTIC MEDICATION: You have been given a percocet for pain control. This medication is a narcotic. It's best taken with food, as nausea can result if taken on an empty stomach. Don't operate machinery or drive within six hours of taking this medication. Do not combine this medicine with alcohol, or with any medication which can cause sedation (such as cold tablets or sleeping pills) unless you get permission from the physician. Narcotics tend to cause constipation. If possible, drink plenty of fluids and eat a diet high in fiber and fruits. Please be aware that prescription narcotics also have the potential for abuse. People become addicted to these medications because of the general sense of wellbeing that they induce. This feeling along with a significant reduction in tension, anxiety, and aggression provides a stimulating seductive quality to these drugs. Once your pain is under control, we encourage you to discard your unused narcotics. ICE PACKS: Apply ice packs frequently against the painful area. Many different schedules are recommended, such as "20 minutes on, 20 minutes off" or "one hour ice, two hours rest." If you need to work, you may need to go longer between ice treatments. You should plan to have the area ice packed AT LEAST one fourth of the time. The ice should be applied over the wrap, tape, or splint, or over a layer of cloth -- not directly against the skin. Some ice bags have a built-in cloth and can be put directly on the skin. WARM PACKS: After approximately two days, apply gentle heat (such as a heating pad or hot water bottle) for about 20 to 30 minutes about every two hours -- at least four times daily. Warmth and elevation will help you make a more rapid recovery, and will ease the pain considerably. Do not use HOT heat, and never apply heat for longer than 30 minutes. The continuous heat can invisibly damage skin and muscles -- even when no burn is seen on the surface. Damaged muscles can make you MORE sore. Stretching Exercises for the Back The physician has recommended that you begin stretching exercises for your back. These are often used even while the back is painful. However, you should notify the physician if the activities seem to increase your pain. PELVIC TILT: Lie flat on your back with knees bent. Tighten your stomach and buttock muscles so it flattens your lower back against the floor. Hold 10 seconds. Repeat 10 times, twice daily. KNEE RAISE: Lying on the back with knees bent, raise one knee to your chest, then the other. Hold both knees against the chest 10 seconds, then lower one knee at a time. Repeat 10 times, twice daily. PARTIAL TRUNK RAISE: Lie face down, arms at your sides. Keeping your waist on the floor, use your arms raise your chest up. Support yourself on your elbows for 30 seconds. Repeat twice daily, increasing the time to two minutes as you recover. Lidoderm patch was placed on your back today. This can be left on for 12 hours. Then it needs to be removed. You can get Lidoderm patches across the counter or you can use lidocaine Aspercreme for your back pain. FOLLOW-UP CARE: If you have been referred to a physician for follow-up care, call the physicians office for an appointment as you were instructed or within the next two days. If you experience worsening or a significant change in your symptoms, notify the physician immediately or return to the Emergency Department at any time for re-evaluation. Forms: Elevated Blood Pressure Referrals: [facility] [Provider Group] - Follow up as needed
--- NOTE | 2018-04-01 13:40 | RADIOLOGY REPORT (SQ) ---
EXAM DESCRIPTION: HIP RIGHT AP/LATERAL COMPLETED DATE/TIME: 04/01/2018 1:26 pm REASON FOR STUDY: severe pain right hip and low back worse COMPARISON: 01/30/2017. NUMBER OF VIEWS: Two views. TECHNIQUE: AP pelvis and additional frog-leg view of the right hip. LIMITATIONS: None. FINDINGS: MINERALIZATION: Normal. RIGHT HIP: No fracture or dislocation. No worrisome bone lesions. No contour deformity. Marked join t space narrowing with sclerosis and osteophytes. LEFT HIP: No fracture or dislocation. No worrisome bone lesions. Joint space narrowing with scleros is and osteophytes. PUBIS AND ISCHIUM: No fracture. PELVIS: No fracture. SACRUM: No fracture or dislocation. No worrisome bone lesions. LOWER LUMBAR SPINE: No fracture or dislocation. No worrisome bone lesions. Degenerative disc disease . SOFT TISSUES: No findings. OTHER: No other significant finding. IMPRESSION: DEGENERATIVE CHANGES IN BOTH HIPS, RIGHT GREATER THAN LEFT. NO ACUTE FINDINGS. TECHNICAL DOCUMENTATION: JOB ID: [id number] [employer]- All Rights Reserved Reading location - IP/workstation name: [email or web address]
--- NOTE | 2018-04-01 13:41 | RADIOLOGY REPORT (SQ) ---
EXAM DESCRIPTION: L SPINE WHOLE COMPLETED DATE/TIME: 04/01/2018 1:26 pm REASON FOR STUDY: severe pain right hip and low back worse COMPARISON: 06/12/2016. NUMBER OF VIEWS: Five views including obliques. TECHNIQUE: AP, lateral, oblique, and sacral radiographic images acquired of the lumbar spine. LIMITATIONS: None. FINDINGS: MINERALIZATION: Normal. SEGMENTATION: Normal. No transitional anatomy. ALIGNMENT: Normal. VERTEBRAE: Maintained height. No fracture or worrisome bone lesion. DISCS: Mild multilevel disc space narrowing with small osteophytes. POSTERIOR ELEMENTS: Pedicles and facets are intact. No pars defect or posterior arch defects. HARDWARE: None in the spine. PARASPINAL SOFT TISSUES: Normal. PELVIS: Intact as visualized. No fractures or worrisome bone lesions. SI joints intact. OTHER: No other significant finding. IMPRESSION: CHRONIC DEGENERATIVE DISC DISEASE. NO ACUTE FINDINGS. TECHNICAL DOCUMENTATION: JOB ID: [id number] [employer]- All Rights Reserved Reading location - IP/workstation name: [email or web address]
[2018-04-01 14:00] VITALS: BP 122/81
== END 2018-04-01 14:09 | disposition home or self-care (01) ==
LOC: ER 11:40
DX: M54.41 Lumbago with sciatica, right side (principal); M51.36 Other intervertebral disc degeneration, lumbar region; M16.0 Bilateral primary osteoarthritis of hip; M79.604 Pain in right leg; M25.551 Pain in right hip; F41.9 Anxiety disorder, unspecified; F17.210 Nicotine dependence, cigarettes, uncomplicated; I10 Essential (primary) hypertension; J45.909 Unspecified asthma, uncomplicated
CPT/HCPCS: 72110; 99283

== ENCOUNTER 2018-07-03 21:04 | Emergency (ER) | payer OTHER ==
[2018-07-03] MEDS ORDERED: ONDANSETRON 4 MG TAB.RAPDIS PO ONE (22:08)
[2018-07-03] MEDS ORDERED: FAMOTIDINE 20 MG TABLET PO ONE (22:08)
--- NOTE | 2018-07-03 22:09 | ER Document Report ---
ED Medical Screen (RME) - General Chief Complaint: Chest Pain Stated Complaint: NECK PAIN/LEFT SIDE PAIN Time Seen by Provider: 07/03/18 22:05 Notes: 40-year-old female chief complaint of chest pain radiating up towards the neck and the left arm since 1 AM. She took 800 mg of aspirin on 2 separate occasions for this. She reports some nausea, denies vomiting or abdominal pain. Denies difficulty breathing or fever. Denies cardiac medical history personally but states her family has it. History of hysterectomy. TRAVEL OUTSIDE OF THE [place] IN LAST 30 DAYS: No - Related Data Allergies/Adverse Reactions: cefazolin [Cefazolin] Allergy (Intermediate, Verified 04/01/18 11:41) Hives hydromorphone HCl [From Dilaudid] Allergy (Mild, Verified 04/01/18 11:41) Facial edema and rash Sulfa (Sulfonamide Antibiotics) Allergy (Mild, Verified 04/01/18 11:41) erythromycin base [Erythromycin Base] Allergy (Unknown, Verified 04/01/18 11:41) cephalexin [Cephalexin] Allergy (Verified 04/01/18 11:41) cortisone [Cortisone] Allergy (Verified 04/01/18 11:41) Penicillins Allergy (Verified 04/01/18 11:41) Past Medical History - Social History Chew tobacco use (# tins/day): No Frequency of alcohol use: Rare Drug Abuse: None - Past Medical History Cardiac Medical History: Reports: Hx Hypertension Pulmonary Medical History: Reports: Hx Asthma, Hx Bronchitis, Hx Pneumonia Neurological Medical History: Reports: Hx Migraine Renal/ Medical History: Reports: Hx Kidney Stones, Hx Ovarian Cysts. Denies: Hx Peritoneal Dialysis GI Medical History: Reports: Hx Diverticulitis, Hx Gastroesophageal Reflux Disease, Hx Irritable Bowel Musculoskeltal Medical History: Reports Hx Arthritis - back, Reports Hx Musculoskeletal Trauma Skin Medical History: Reports Hx MRSA Psychiatric Medical History: Reports: Hx Anxiety, Hx Bipolar Disorder, Hx Depre ssion, Hx Post Traumatic Stress Disorder Traumatic Medical History: Reports: Hx Fractures - hand Infectious Medical History: Reports: Hx MRSA Past Surgical History: Reports: Hx Abdominal Surgery, Hx Section - x 2, Hx Cholecystectomy, Hx Dilation and Curettage, Hx Gynecologic Surgery - D & C, Hx Hysterectomy, Hx Tubal Ligation. Denies: Hx Pacemaker - Immunizations Immunizations up to date: Yes Hx Diphtheria, Pertussis, Tetanus Vaccination: Yes - 2012 Physical Exam - Vital signs Vitals: Temp Pulse Resp BP Pulse Ox 98.3 F 93 18 139/86 H 96 07/03/18 21:22 07/03/18 21:22 07/03/18 21:22 07/03/18 21:22 07/03/18 21:22 - Respiratory Chest status: Tender - There is some chest wall tenderness extending up to the left shoulder Breath sounds: Normal. No: Decreased air movement, Wheezing Course - Re-evaluation Re-evalutation: EKG with no acute findings at this time, possibly musculoskeletal in nature based on her exam I have greeted and performed a rapid initial assessment of this patient. A comprehensive ED assessment and evaluation of the patient, analysis of test results and completion of the medical decision making process will be conducted by additional ED providers. - Vital Signs Vital signs: Temp Pulse Resp BP Pulse Ox 98.3 F 93 18 139/86 H 96 07/03/18 21:22 07/03/18 21:22 07/03/18 21:22 07/03/18 21:22 07/03/18 21:22
--- NOTE | 2018-07-03 22:40 | RADIOLOGY REPORT (SQ) ---
EXAM DESCRIPTION: XR CHEST 1 VIEW COMPLETED DATE/TME: 07/03/2018 22:08 CLINICAL HISTORY: 48 years, Female, chest pain Findings: The heart is not enlarged. No consolidation or pleural effusion. No pulmonary edema or pneumothorax. IMPRESSION: No acute disease.
[2018-07-03 23:28] LABS: ABSOLUTE BASOPHILS # (AUTO) 0.1 10^3/uL (0.0-0.2); ABSOLUTE EOSINOPHILS # (AUTO) 0.2 10^3/uL (0.0-0.6); ABSOLUTE LYMPHOCYTES (AUTO) 3.4 10^3/uL (0.5-4.7); ABSOLUTE MONOCYTES (AUTO) 0.7 10^3/uL (0.1-1.4); ABSOLUTE NEUT (AUTO) 5.6 10^3/uL (1.7-8.2); BASOPHILS % (AUTO) 0.9 % (0-2); EOSINOPHILS % (AUTO) 2.4 % (0-6); HEMATOCRIT 42.1 % (36.0-47.0); HEMOGLOBIN 15.3 g/dL (12.0-15.5); LYMPHOCYTES % (AUTO) 34.1 % (13-45); MEAN CORPUSCULAR HEMOGLOBIN 32.4 pg (27.0-33.4); MEAN CORPUSCULAR HGB CONC 36.3 g/dL (32.0-36.0); MEAN CORPUSCULAR VOLUME 89 fl (80-97); MONOCYTES % (AUTO) 6.7 % (3-13); PLATELET COUNT 379 10^3/uL (150-450); RED BLOOD COUNT 4.71 10^6/uL (3.72-5.28); RED CELL DISTRIBUTION WIDTH 13.3 % (11.5-14.0); SEGMENTED NEUTROPHILS % (AUTO) 55.9 % (42-78); TOTAL CELLS COUNTED % (AUTO) 100 %
[2018-07-03 23:39] LABS: ALANINE AMINOTRANSFERASE 17 U/L (9-52); ALBUMIN 4.6 g/dL (3.5-5.0); ALKALINE PHOSPHATASE 49 U/L (38-126); ANION GAP 12 (5-19); ASPARTATE AMINO TRANSFERASE 24 U/L (14-36); BILIRUBIN,DIRECT 0.2 mg/dL (0.0-0.4); BILIRUBIN,TOTAL 0.2 mg/dL (0.2-1.3); BLOOD UREA NITROGEN 17 mg/dL (7-20); CALCIUM 9.4 mg/dL (8.4-10.2); CARBON DIOXIDE 22 mmol/L (22-30); CHLORIDE 105 mmol/L (98-107); GLUCOSE 101 mg/dL (75-110); POTASSIUM 3.8 mmol/L (3.6-5.0); SODIUM 138.9 mmol/L (137-145); TOTAL PROTEIN 8.3 g/dL (6.3-8.2)
[2018-07-04] MEDS ORDERED: LIDOCAINE 5% (700 MG) TRANSDERMAL ADH..PATCH TP ONE (01:58)
[2018-07-04] MEDS ORDERED: KETOROLAC TROMETHAMINE 60 MG/2 ML SDV IM ONE (01:58)
[2018-07-04] MEDS ORDERED: GABAPENTIN 300 MG CAPSULE PO ONE (01:59)
--- NOTE | 2018-07-04 02:04 | ER Document Report ---
ED General - General Chief Complaint: Chest Pain Stated Complaint: NECK PAIN/LEFT SIDE PAIN Time Seen by Provider: 07/03/18 22:05 Notes: Patient is a 48-year-old female with past medical history of obesity, hypertension, who presents with roughly 24 hours of left-sided neck pain, left chest pain, shoulder pain and dullness of the left forearm and hand. States she woke up with this pain morning and that it has been ongoing since that time. Describes as a shooting, burning, throbbing pain to the affected areas. Relatively unchanged since onset. Moving her shoulder her neck seems to worsen the pain. Nothing improves the pain. No history of similar issues in the past although does state that she has a bulging C6-7 disc by history. Has not seen her primary care doctor regarding today's concerns. She states although there is a dullness over her left forearm and hand she denies any true loss of sensation or motor weakness to the side. TRAVEL OUTSIDE OF THE [place] IN LAST 30 DAYS: No - Related Data Allergies/Adverse Reactions: cefazolin [Cefazolin] Allergy (Intermediate, Verified 04/01/18 11:41) Hives hydromorphone HCl [From Dilaudid] Allergy (Mild, Verified 04/01/18 11:41) Facial edema and rash Sulfa (Sulfonamide Antibiotics) Allergy (Mild, Verified 04/01/18 11:41) erythromycin base [Erythromycin Base] Allergy (Unknown, Verified 04/01/18 11:41) cephalexin [Cephalexin] Allergy (Verified 04/01/18 11:41) cortisone [Cortisone] Allergy (Verified 04/01/18 11:41) Penicillins Allergy (Verified 04/01/18 11:41) Past Medical History - General Information source: Patient - Social History Smoking Status: Current Every Day Smoker Chew tobacco use (# tins/day): No Frequency of alcohol use: Rare Drug Abuse: None Lives with: Spouse/Significant other Family History: Arthritis, CAD, CVA, DM, Hyperlipidemia, Hypertension, Malignancy, Thyroid Disfunction, Other - Kidney stones Patient has suicidal ideation: No Patient has homicidal ideation: No - Past Medical History Cardiac Medical History: Reports: Hx Hypertension Pulmonary Medical History: Reports: Hx Asthma, Hx Bronchitis, Hx Pneumonia Neurological Medical History: Reports: Hx Migraine Renal/ Medical History: Reports: Hx Kidney Stones, Hx Ovarian Cysts. Denies: Hx Peritoneal Dialysis GI Medical History: Reports: Hx Diverticulitis, Hx Gastroesophageal Reflux Disease, Hx Irritable Bowel Musculoskeletal Medical History: Reports Hx Arthritis - back, Reports Hx Musculoskeletal Trauma Skin Medical History: Reports Hx MRSA Psychiatric Medical History: Reports: Hx Anxiety, Hx Bipolar Disorder, Hx Depression, Hx Post Traumatic Stress Disorder Traumatic Medical History: Reports: Hx Fractures - hand Infectious Medical History: Reports: Hx MRSA Past Surgical History: Reports: Hx Abdominal Surgery, Hx Section - x 2, Hx Cholecystectomy, Hx Dilation and Curettage, Hx Gynecologic Surgery - D & C, Hx Hysterectomy, Hx Tubal Ligation. Denies: Hx Pacemaker - Immunizations Immunizations up to date: Yes Hx Diphtheria, Pertussis, Tetanus Vaccination: Yes - 2011 Hx Pneumococcal Vaccination: 11/10/11 Review of Systems - Review of Systems Notes: Constitutional: Negative for fever. HENT: Negative for sore throat. Eyes: Negative for visual changes. Cardiovascular: Positive for chest pain. Respiratory: Negative for shortness of breath. Gastrointestinal: Negative for abdominal pain, vomiting or diarrhea. Genitourinary: Negative for dysuria. Musculoskeletal: Positive for left shoulder and left-sided neck pain Skin: Negative for rash. Neurological: Negative for headaches, positive for dullness to the left forearm and hand 10 point ROS negative except as marked above and in HPI. Physical Exam - Vital signs Vitals: Temp Pulse Resp BP Pulse Ox 98.3 F 93 18 139/86 H 96 07/03/18 21:22 07/03/18 21:22 07/03/18 21:22 07/03/18 21:22 07/03/18 21:22 Interpretation: Normal Notes: PHYSICAL EXAMINATION: GENERAL: Well-appearing, well-nourished and in no acute distress. HEAD: Atraumatic, normocephalic. EYES: Pupils equal round and reactive to light, extraocular movements intact, sclera anicteric, conjunctiva are normal. ENT: nares patent, oropharynx clear without exudates. Moist mucous membranes. NECK: Normal range of motion, supple without lymphadenopathy LUNGS: Breath sounds clear to auscultation bilaterally and equal. No wheezes rales or rhonchi. HEART: Regular rate and rhythm without murmurs ABDOMEN: Soft, nontender, normoactive bowel sounds. No guarding, no rebound. No masses appreciated. EXTREMITIES: Normal range of motion, no pitting or edema. No cyanosis. NEUROLOGICAL: Face symmetric. Tongue protrudes midline. Extraocular motions intact. Pupils are 2 mm and equally reactive. Normal speech, normal gait. 5 out of 5 strength in both the distal and proximal upper and lower extremities bilaterally. Sensation is grossly intact throughout. Finger to nose testing normal. Pronator drift normal. PSYCH: Normal mood, normal affect. SKIN: Warm, Dry, normal turgor, no rashes or lesions noted. Course - Re-evaluation Re-evalutation: 07/04/18 02:02 Patient presents with signs and symptoms most consistent with a cervical nerve root impingement likely at C6-7. Patient presents with acute onset of pain into the shoulder, neck, and radiation of pain into the extremity. Patient also reports of some dullness over the forearm as well as into the hand itself. Patient reports symptoms did start after waking up. On neurologic exam patient has 5 out of 5 biceps and triceps strength. RMU motor and sensory distribution including against resistance on motor testing is noted to be normal. 2+ radial pulse and capillary refill is less than 1 second in all digits. Laboratories including troponin have been obtained given associated chest discomfort and are noted to be unremarkable. EKG likewise unremarkable. Patient has had improvement of symptoms after receiving analgesia here in the emergency department. Advised supportive pillow for sleep at night, have treated with NSAIDs, gabapentin and tramadol at night for pain that prevents sleep. At this time will discharge with return precautions and follow-up recommendations. Verbal discharge instructions given a the bedside and opportunity for questions given. Medication warnings reviewed. Patient is in agreement with this plan and has verbalized understanding of return precautions and the need for primary care follow-up in the next 24-72 hours. - Vital Signs Vital signs: Temp Pulse Resp BP Pulse Ox 98.3 F 70 20 141/99 H 98 07/03/18 21:22 07/04/18 02:04 07/04/18 02:04 07/04/18 02:04 07/04/18 02:04 - Laboratory Result Diagrams: 07/03/18 23:11 07/03/18 23:11 Laboratory results interpreted by me: 07/03/18 07/03/18 23:11 23:11 MCHC 36.3 H Total Protein 8.3 H - Diagnostic Test Radiology reviewed: Image reviewed, Reports reviewed Radiology results interpreted by me: 07/04/18 04:50 Chest x-ray: No acute infiltrate or pneumothorax - EKG Interpretation by Me Additional EKG results interpreted by me: 07/04/18 04:50 Sinus rhythm, rate 80. No ST elevations or depressions. QTC is 430. Discharge - Discharge Clinical Impression: Cervical nerve root impingement, Chest wall pain, Left upper limb pain Condition: Good Disposition: HOME, SELF-CARE Additional Instructions: Your pain is related to impingement one of your cervical nerve roots and will take 6-8 weeks completely resolved. For your pain: Take ibuprofen 600 mg and acetaminophen 1000 mg every 6 hours together as needed for pain. You may take gabapentin 300 mg 3 times daily in addition to the above regimen for your pain. Use tramadol 50 mg at night if you are unable to sleep. In addition to this, purchased the product that is sold [id number] cold Aspercreme with li docaine. Apply to the affected area per bottle instructions. You should also apply heat to the area regularly using an electric heating plant pad. Return to the emergency department immediately if you develop weakness, loss of sensation, chest pain, shortness of breath, have worsening of your symptoms, or any other symptoms that are worrisome to you. Prescriptions: Tramadol HCl [Ultram] 50 mg PO QHS #6 tablet Gabapentin [Neurontin 300 mg Capsule] 300 mg PO Q8 #90 cap
[2018-07-04 02:06] VITALS: BP 141/99
--- NOTE | 2018-07-04 09:52 | EKG REPORT ---
SEVERITY:- NORMAL ECG - SINUS RHYTHM : Confirmed by: Robert Juárez 04-Jul-2018 09:51:55
== END 2018-07-04 02:11 | disposition home or self-care (01) ==
LOC: ER 21:04
DX: R07.9 Chest pain, unspecified (principal); M79.602 Pain in left arm; M54.2 Cervicalgia; R07.89 Other chest pain; F17.200 Nicotine dependence, unspecified, uncomplicated; I10 Essential (primary) hypertension; Z87.442 Personal history of urinary calculi; Z86.14 Personal history of Methicillin resistant Staphylococcus aureus infection; Z88.2 Allergy status to sulfonamides; Z88.3 Allergy status to other anti-infective agents; Z88.0 Allergy status to penicillin
CPT/HCPCS: 93005; 99284; 96372; 36415; 85025; 80053; 84484; 71045; 93010; J1885; S0119

== ENCOUNTER 2018-08-30 11:13 | Emergency (ER) | payer OTHER ==
[2018-08-30 11:41] VITALS: BP 139/122
[2018-08-30] MEDS ORDERED: KETOROLAC TROMETHAMINE INJ/PF 30 MG/1 ML SDV IV ONE (11:49)
[2018-08-30] MEDS ORDERED: NORMAL SALINE 1000 ML 1,000 ML IV ONE (11:49)
[2018-08-30] MEDS ORDERED: ONDANSETRON HCL INJ/PF 4 MG/2 ML SDV IV ONE (11:49)
--- NOTE | 2018-08-30 11:50 | ER Document Report ---
ED Medical Screen (RME) - General Chief Complaint: Abdominal Pain Stated Complaint: BLOOD IN URINE Time Seen by Provider: 08/30/18 11:47 Notes: Patient is a 40-year-old female presents to the emergency department with right flank and right groin pain. Patient is also complaining of lynnette hematuria. Patient states she does have a history of kidney stones and this feels similar. Patient is also complaining of generalized nausea. Patient denies fever. ABDOMEN: Soft, right flank pain noted, suprapubic pain noted. Non-distended. Bowel sounds present in all 4 quadrants. BACK: no cervical, thoracic, lumbar midline tenderness. No saddle anesthesia, normal distal neurovascular exam. Right CVA tenderness note I have greeted and performed a rapid initial assessment of this patient. A comprehensive ED assessment and evaluation of the patient, analysis of test results and completion of the medical decision making process will be conducted by additional ED providers. This medical record was dictated with voice recognizing software. There may be grammatical, syntax errors that are unintended. TRAVEL OUTSIDE OF THE [place] IN LAST 30 DAYS: No - Related Data Allergies/Adverse Reactions: cefazolin [Cefazolin] Allergy (Intermediate, Verified 08/30/18 11:15) Hives hydromorphone HCl [From Dilaudid] Allergy (Mild, Verified 08/30/18 11:15) Facial edema and rash Sulfa (Sulfonamide Antibiotics) Allergy (Mild, Verified 08/30/18 11:15) erythromycin base [Erythromycin Base] Allergy (Unknown, Verified 08/30/18 11:15) cephalexin [Cephalexin] Allergy (Verified 08/30/18 11:15) cortisone [Cortisone] Allergy (Verified 08/30/18 11:15) Penicillins Allergy (Verified 08/30/18 11:15) Past Medical History - Past Medical History Cardiac Medical History: Reports: Hx Hypertension Pulmonary Medical History: Reports: Hx Asthma, Hx Bronchitis, Hx Pneumonia Neurological Medical History: Reports: Hx Migraine Renal/ Medical History: Reports: Hx Kidney Stones, Hx Ovarian Cysts. Denies: Hx Peritoneal Dialysis GI Medical History: Reports: Hx Diverticulitis, Hx Gastroesophageal Reflux Disease, Hx Irritable Bowel Musculoskeltal Medical History: Reports Hx Arthritis - back, Reports Hx Musculoskeletal Trauma Skin Medical History: Reports Hx MRSA Psychiatric Medical History: Reports: Hx Anxiety, Hx Bipolar Disorder, Hx Depre ssion, Hx Post Traumatic Stress Disorder Traumatic Medical History: Reports: Hx Fractures - hand Infectious Medical History: Reports: Hx MRSA Past Surgical History: Reports: Hx Abdominal Surgery, Hx Section - x 2, Hx Cholecystectomy, Hx Dilation and Curettage, Hx Gynecologic Surgery - D & C, Hx Hysterectomy, Hx Tubal Ligation. Denies: Hx Pacemaker - Immunizations Immunizations up to date: Yes Hx Diphtheria, Pertussis, Tetanus Vaccination: Yes - 2011 Physical Exam - Vital signs Vitals: Temp Pulse Resp BP Pulse Ox 98.4 F 90 20 139/122 H 98 08/30/18 11:40 08/30/18 11:40 08/30/18 11:40 08/30/18 11:40 08/30/18 11:40 Course - Vital Signs Vital signs: Temp Pulse Resp BP Pulse Ox 98.4 F 90 20 139/122 H 98 08/30/18 11:40 08/30/18 11:40 08/30/18 11:40 08/30/18 11:40 08/30/18 11:40
[2018-08-30 12:30] LABS: ABSOLUTE BASOPHILS # (AUTO) 0.1 10^3/uL (0.0-0.2); ABSOLUTE EOSINOPHILS # (AUTO) 0.2 10^3/uL (0.0-0.6); ABSOLUTE LYMPHOCYTES (AUTO) 2.7 10^3/uL (0.5-4.7); ABSOLUTE MONOCYTES (AUTO) 0.5 10^3/uL (0.1-1.4); ABSOLUTE NEUT (AUTO) 3.8 10^3/uL (1.7-8.2); EOSINOPHILS % (AUTO) 2.5 % (0-6); HEMOGLOBIN 14.2 g/dL (12.0-15.5); LYMPHOCYTES % (AUTO) 37.1 % (13-45); MEAN CORPUSCULAR HEMOGLOBIN 30.4 pg (27.0-33.4); MEAN CORPUSCULAR HGB CONC 34.7 g/dL (32.0-36.0); MEAN CORPUSCULAR VOLUME 88 fl (80-97); MONOCYTES % (AUTO) 6.8 % (3-13); PLATELET COUNT 334 10^3/uL (150-450); RED BLOOD COUNT 4.67 10^6/uL (3.72-5.28); RED CELL DISTRIBUTION WIDTH 13.1 % (11.5-14.0); SEGMENTED NEUTROPHILS % (AUTO) 52.6 % (42-78); TOTAL CELLS COUNTED % (AUTO) 100 %; WHITE BLOOD COUNT 7.2 10^3/uL (4.0-10.5)
[2018-08-30 12:53] LABS: ALANINE AMINOTRANSFERASE 21 U/L (9-52); ALBUMIN 4.4 g/dL (3.5-5.0); ALKALINE PHOSPHATASE 37 U/L (38-126); ANION GAP 9 (5-19); ASPARTATE AMINO TRANSFERASE 20 U/L (14-36); BILIRUBIN,DIRECT 0.4 mg/dL (0.0-0.4); BILIRUBIN,TOTAL 0.5 mg/dL (0.2-1.3); BLOOD UREA NITROGEN 14 mg/dL (7-20); CALCIUM 9.7 mg/dL (8.4-10.2); CARBON DIOXIDE 22 mmol/L (22-30); CHLORIDE 111 mmol/L (98-107); GLUCOSE 88 mg/dL (75-110); POTASSIUM 4.4 mmol/L (3.6-5.0); SODIUM 141.9 mmol/L (137-145); TOTAL PROTEIN 7.6 g/dL (6.3-8.2)
--- NOTE | 2018-08-30 12:56 | RADIOLOGY REPORT (SQ) ---
EXAM DESCRIPTION: U/S RETROPERITON (RENAL/AORTA) COMPLETED DATE/TIME: 08/30/2018 12:30 pm REASON FOR STUDY: right flank pain, hematuria COMPARISON: None. TECHNIQUE: Dynamic and static grayscale images acquired of the kidneys and bladder and recorded on P ACS. Additional selected color Doppler and spectral images recorded. LIMITATIONS: None. FINDINGS: RIGHT KIDNEY: Normal size. Normal echogenicity. No solid or suspicious masses. No hydronep hrosis. No calcifications. LEFT KIDNEY: Normal size. Normal echogenicity. No solid or suspicious masses. No hydronephrosis. No calcifications. BLADDER: No masses. OTHER FINDINGS: No other significant finding. IMPRESSION: NORMAL RENAL AND BLADDER ULTRASOUND. TECHNICAL DOCUMENTATION: JOB ID: [id number] [employer]- All Rights Reserved Reading location - IP/workstation name: [email or web address]
[2018-08-30 13:49] LABS: APPEARANCE,URINE SLIGHTLY-CLOUDY; BILIRUBIN,URINE NEGATIVE (NEGATIVE); COLOR,URINE AMBER; GLUCOSE, URINE NEGATIVE (NEGATIVE); KETONES,URINE NEGATIVE (NEGATIVE); LEUKOCYTE ESTERASE,URINE NEGATIVE (NEGATIVE); NITRITE,URINE POSITIVE (NEGATIVE); PROTEIN,URINE NEGATIVE (NEGATIVE); URIC ACID CRYSTALS,URINE RARE /HPF; URINE SPECIFIC GRAVITY 1.026; UROBILINOGEN,URINE NEGATIVE mg/dL (<2.0)
--- NOTE | 2018-08-30 14:02 | ER Document Report ---
ED General - General Chief Complaint: Abdominal Pain Stated Complaint: BLOOD IN URINE Time Seen by Provider: 08/30/18 11:47 Primary Care Provider: ELODIA HOLLAND MD [ACTIVE STAFF] - Follow up in 3-5 days (or your primary care. ) Notes: Patient is a 48-year-old female that presents to the emergency department for chief complaint of abdominal pain. Patient states the pain started last night, and has been persistent and seemingly worsening over time. The pain is located right flank and radiates towards the groin, and they currently rate the pain as a 6 out of 10, and described as aching, and constant. They have had associated nausea, vomiting, dysuria and hematuria. Reports she has been told she had kid shandra stones before, but has never passed on and never been treated for one. She states she is had low-grade fevers at home as well. No other complaints. Past Medical History: Denies chronic medical conditions Past Surgical History: Cholecystectomy, hysterectomy, C-sections Social History: Admits to smoking cigarettes, denies alcohol or drug use. Family History: Reviewed and noncontributory for presenting illness Allergies: Reviewed, see documented allergy list. REVIEW OF SYSTEMS: Other than noted above, the 12 point review of systems was reviewed with the patient and were negative, all pertinent findings are included in the HPI. PHYSICAL EXAMINATION: Vital signs reviewed, nursing noted reviewed. GENERAL: Well-appearing, well-nourished and appears uncomfortable HEAD: Atraumatic, normocephalic. EYES: Eyes appear normal, extraocular movements intact, sclera anicteric, conjunctiva are normal. ENT: nares patent, oropharynx clear without exudates. Moist mucous membranes. NECK: Normal range of motion, supple without lymphadenopathy LUNGS: Breath sounds clear to auscultation bilaterally and equal. No wheezes rales or rhonchi. HEART: Regular rate and rhythm without murmurs ABDOMEN: Soft, obese, normal bowel sounds, tenderness with palpation to the right flank, No rebound, guarding, or rigidity. No masses appreciated. EXTREMITIES: Nontender, good range of motion, no pitting or edema. NEUROLOGICAL: No focal neurological deficits. Moves all extremities spontaneously Motor and sensory grossly intact on exam. PSYCH: Normal mood, normal affect. SKIN: Warm, Dry, normal turgor, no rashes or lesions noted on exposed skin TRAVEL OUTSIDE OF THE [place] IN LAST 30 DAYS: No - Related Data Allergies/Adverse Reactions: cefazolin [Cefazolin] Allergy (Intermediate, Verified 08/30/18 11:15) Hives hydromorphone HCl [From Dilaudid] Allergy (Mild, Verified 08/30/18 11:15) Facial edema and rash Sulfa (Sulfonamide Antibiotics) Allergy (Mild, Verified 08/30/18 11:15) erythromycin base [Erythromycin Base] Allergy (Unknown, Verified 08/30/18 11:15) cephalexin [Cephalexin] Allergy (Verified 08/30/18 11:15) cortisone [Cortisone] Allergy (Verified 08/30/18 11:15) Penicillins Allergy (Verified 08/30/18 11:15) Past Medical History - Social History Smoking Status: Current Every Day Smoker Frequency of alcohol use: None Drug Abuse: None Family History: Arthritis, CAD, CVA, DM, Hyperlipidemia, Hypertension, Malignancy, Thyroid Disfunction, Other - Kidney stones Patient has suicidal ideation: No Patient has homicidal ideation: No - Past Medical History Cardiac Medical History: Reports: Hx Hypertension Pulmonary Medical History: Reports: Hx Asthma, Hx Bronchitis, Hx Pneumonia Neurological Medical History: Reports: Hx Migraine Renal/ Medical History: Reports: Hx Kidney Stones, Hx Ovarian Cysts. Denies: Hx Peritoneal Dialysis GI Medical History: Reports: Hx Diverticulitis, Hx Gastroesophageal Reflux Disease, Hx Irritable Bowel Musculoskeletal Medical History: Reports Hx Arthritis - back, Reports Hx Musculoskeletal Trauma Skin Medical History: Reports Hx MRSA Psychiatric Medical History: Reports: Hx Anxiety, Hx Bipolar Disorder, Hx Depression, Hx Post Traumatic Stress Disorder Traumatic Medical History: Reports: Hx Fractures - hand Infectious Medical History: Reports: Hx MRSA Past Surgical History: Reports: Hx Abdominal Surgery, Hx Section - x 2, Hx Cholecystectomy, Hx Dilation and Curettage, Hx Gynecologic Surgery - D & C, Hx Hysterectomy, Hx Tubal Ligation. Denies: Hx Pacemaker - Immunizations Immunizations up to date: Yes Hx Diphtheria, Pertussis, Tetanus Vaccination: Yes - 2011 Hx Pneumococcal Vaccination: 11/10/11 Physical Exam - Vital signs Vitals: Temp Pulse Resp BP Pulse Ox 98.4 F 90 20 139/122 H 98 08/30/18 11:40 08/30/18 11:40 08/30/18 11:40 08/30/18 11:40 08/30/18 11:40 Course - Re-evaluation Re-evalutation: Patient seen and examined vital signs reviewed. Laboratory data and/or imaging were ordered as appropriate for the patient's presenting symptoms and complaint, with consideration of any critical or life threatening conditions that may be associated with their obtained history and exam as noted above. Patient was treated with IV fluids, Zofran, and given a dose of IV ciprofloxacin and fentanyl for pain Results were reviewed when available and demonstrated UA consistent with urinary tract infection with nitrites positive The patient was re-evaluated and was improved and stable Evaluation was most consistent with acute pyelonephritis, clinically asymptomatic, and positive UA, will treat with ciprofloxacin for 7 days, and given a prescription for Pyridium as well. Results were discussed with the patient at this point, after careful consideration I feel that that patient can be discharged from the emergency department, the patient was educated treatments and reasons to return to the emergency department based on their presumed diagnosis as noted above, they were advised to followup with a primary care physician in 2-3 days. Patient was agreeable to plan of care. *Note is created using voice recognition software and may contain spelling, syntax or grammatical errors. Laboratory 08/30/18 08/30/18 08/30/18 12:05 12:05 13:23 WBC 7.2 RBC 4.67 Hgb 14.2 Hct 41.0 MCV 88 MCH 30.4 MCHC 34.7 RDW 13.1 Plt Count 334 Seg Neutrophils % 52.6 Lymphocytes % 37.1 Monocytes % 6.8 Eosinophils % 2.5 Basophils % 1.0 Absolute Neutrophils 3.8 Absolute Lymphocytes 2.7 Absolute Monocytes 0.5 Absolute Eosinophils 0.2 Absolute Basophils 0.1 Sodium 141.9 Potassium 4.4 Chloride 111 H Carbon Dioxide 22 Anion Gap 9 BUN 14 Creatinine 0.66 Est GFR ( Amer) > 60 Est GFR (Non-Af Amer) > 60 Glucose 88 Calcium 9.7 Total Bilirubin 0.5 Direct Bilirubin 0.4 Neonat Total Bilirubin Not Reportable Neonat Direct Bilirubin Not Reportable Neonat Indirect Bili Not Reportable AST 20 ALT 21 Alkaline Phosphatase 37 L Total Protein 7.6 Albumin 4.4 Urine Color NAHOMI Urine Appearance SLIGHTLY-CLOUDY Urine pH 5.0 Ur Specific Cascade 1.026 Urine Protein NEGATIVE Urine Glucose (UA) NEGATIVE Urine Ketones NEGATIVE Urine Blood SMALL H Urine Nitrite POSITIVE H Urine Bilirubin NEGATIVE Urine Urobilinogen NEGATIVE Ur Leukocyte Esterase NEGATIVE Urine WBC (Auto) 2 Urine RBC (Auto) 3 U Hyaline Cast (Auto) 1 Urine Bacteria (Auto) 3+ Squamous Epi Cells Auto 1 Uric Acid Cryst (Auto) RARE Urine Mucus (Auto) MANY Urine Ascorbic Acid NEGATIVE Renal Ultrasound 08/30/18 11:49 IMPRESSION: NORMAL RENAL AND BLADDER ULTRASOUND. Abdomen/Pelvis CT 08/30/18 14:19 IMPRESSION: NO ACUTE FINDINGS. - Vital Signs Vital signs: Temp Pulse Resp BP Pulse Ox 98.4 F 90 20 139/122 H 98 08/30/18 11:40 08/30/18 11:40 08/30/18 11:40 08/30/18 11:40 08/30/18 11:40 - Laboratory Result Diagrams: 08/30/18 12:05 08/30/18 12:05 Laboratory results interpreted by me: 08/30/18 08/30/18 12:05 13:23 Chloride 111 H Alkaline Phosphatase 37 L Urine Blood SMALL H Urine Nitrite POSITIVE H Discharge - Discharge Clinical Impression: Pyelonephritis Condition: Stable Disposition: HOME, SELF-CARE Instructions: Pyelonephritis ([facility]LY [facility], 1928–1983) Additional Instructions: Please complete the entire course of antibiotics as prescribed, take the Pyridium as well which will help with your pain, and follow-up with your primary care physician. Prescriptions: Ciprofloxacin HCl [Cipro 500 mg Tablet] 500 mg PO BID #14 tablet Phenazopyridine HCl [Pyridium 200 mg Tablet] 200 mg PO TID #15 tablet Referrals: ELODIA HOLLAND MD [ACTIVE STAFF] - Follow up in 3-5 days (or your primary care. )
[2018-08-30] MEDS ORDERED: FENTANYL CITRATE INJ/PF 100 MCG/2 ML AMPUL IV ONE (14:19)
[2018-08-30] MEDS ORDERED: CIPROFLOXACIN 400 MG/D5W RTU 400 MG/200 ML RTUPB IV ONE (14:20)
--- NOTE | 2018-08-30 14:48 | RADIOLOGY REPORT (SQ) ---
EXAM DESCRIPTION: CT ABD/PELVIS NO ORAL OR IV COMPLETED DATE/TIME: 08/30/2018 2:34 pm REASON FOR STUDY: right flank pain, hematuria COMPARISON: 08/02/2015 TECHNIQUE: CT scan of the abdomen and pelvis performed without intravenous or oral contrast. Images reviewed with lung, soft tissue, and bone windows. Reconstructed coronal and sagittal MPR images revi ewed. All images stored on PACS. All CT scanners at this facility use dose modulation, iterative reconstruction, and/or weight based d osing when appropriate to reduce radiation dose to as low as reasonably achievable (ALARA). [facility]: Dose Right [facility]: CareDose [facility]: Dose Right [facility]: Teradose 4D [facility]: [employer] RADIATION DOSE: mGy. LIMITATIONS: None. FINDINGS: LOWER CHEST: No significant findings. No nodules or infiltrates. NON-CONTRASTED LIVER, SPLEEN, ADRENALS: Evaluation limited by lack of IV contrast. No identified sign ificant masses. PANCREAS: No masses. No peripancreatic inflammatory changes. GALLBLADDER: Surgically absent. RIGHT KIDNEY AND URETER: No cysts identified. No solid masses. No calcified stones. No hydronephrosis or hydroureter. LEFT KIDNEY AND URETER: No cysts identified. No solid masses. No calcified stones. No hydronephrosis or hydroureter. AORTA AND RETROPERITONEUM: No aneurysm. No retroperitoneal masses or adenopathy. BOWEL AND PERITONEAL CAVITY: No obvious masses or inflammatory changes. No free fluid. APPENDIX: Normal. PELVIS, BLADDER, AND ABDOMINAL WALL:No abnormal masses. No free fluid. Unremarkable bladder. BONES: No acute findings. Degenerative disc disease at the L5-S1 level. OTHER: No other significant finding. IMPRESSION: NO ACUTE FINDINGS. TECHNICAL DOCUMENTATION: JOB ID: [id number] Quality ID # [id number]: Final reports with documentation of one or more dose reduction techniques (e.g., Au tomated exposure control, adjustment of the mA and/or kV according to patient size, use of iterative reconstruction technique) 2010 [employer]- All Rights Reserved Reading location - IP/workstation name: [email or web address]
== END 2018-08-30 16:21 | disposition home or self-care (01) ==
LOC: ER 11:13
DX: N12 Tubulo-interstitial nephritis, not specified as acute or chronic (principal); Z90.710 Acquired absence of both cervix and uterus; Z90.49 Acquired absence of other specified parts of digestive tract; F17.210 Nicotine dependence, cigarettes, uncomplicated; Z88.2 Allergy status to sulfonamides; Z88.1 Allergy status to other antibiotic agents; Z88.0 Allergy status to penicillin; Z88.8 Allergy status to other drugs, medicaments and biological substances; I10 Essential (primary) hypertension; J45.909 Unspecified asthma, uncomplicated; Z86.14 Personal history of Methicillin resistant Staphylococcus aureus infection
CPT/HCPCS: 99284; 96361; 96375; 96365; 36415; 87086; 85025; 87088; 80053; 81001; 87186; 76770; 74176; J3010; J1885; J2405; J7030; J0744

== ENCOUNTER 2018-08-31 18:16 | Emergency (ER) | payer OTHER ==
[2018-08-31 18:34] VITALS: BP 150/92
[2018-08-31] MEDS ORDERED: FENTANYL CITRATE INJ/PF 100 MCG/2 ML AMPUL IV ONE (18:45)
[2018-08-31] MEDS ORDERED: ONDANSETRON HCL INJ/PF 4 MG/2 ML SDV IV ONE (18:45)
--- NOTE | 2018-08-31 18:47 | ER Document Report ---
ED Medical Screen (RME) - General Chief Complaint: Flank Pain Stated Complaint: SICK Time Seen by Provider: 08/31/18 18:38 TRAVEL OUTSIDE OF THE [place] IN LAST 30 DAYS: No - HPI Notes: 08/31/18 18:42 Patient is a 48-year-old female who presents after evaluation and discharged yesterday complaining of continued pain in her right back/flank, nausea, vomiting, and hematuria/dysuria. Patient was diagnosed with urinary infection/pyelonephritis and sent home on ciprofloxacin (extensive allergy list). Patient states that she has not taken any of the medicine because she could not afford it. Otherwise symptoms similar to previous visit. No other concerns or complaints. Denies BERNAL, fever, neck pain, URI, CP, SOB, or rash. I have treated and performed a rapid initial assessment of this patient. A co mprehensive ED assessment and evaluation of the patient, analysis of test results and completion of medical decision making process will be conducted by additional ED providers. PHYSICAL EXAMINATION: GENERAL: Well-appearing, well-nourished and in no acute distress. A&Ox4. Answers questions appropriately. LUNGS: Breath sounds clear to auscultation bilaterally and equal. No wheezes rales or rhonchi. HEART: Regular rate and rhythm without murmurs, rubs, gallops. - Related Data Allergies/Adverse Reactions: cefazolin [Cefazolin] Allergy (Intermediate, Verified 08/31/18 18:29) Hives hydromorphone HCl [From Dilaudid] Allergy (Mild, Verified 08/31/18 18:29) Facial edema and rash Sulfa (Sulfonamide Antibiotics) Allergy (Mild, Verified 08/31/18 18:29) erythromycin base [Erythromycin Base] Allergy (Unknown, Verified 08/31/18 18:29) cephalexin [Cephalexin] Allergy (Verified 08/31/18 18:29) cortisone [Cortisone] Allergy (Verified 08/31/18 18:29) Penicillins Allergy (Verified 08/31/18 18:29) Past Medical History - Past Medical History Cardiac Medical History: Reports: Hx Hypertension Pulmonary Medical History: Reports: Hx Asthma, Hx Bronchitis, Hx Pneumonia Neurological Medical History: Reports: Hx Migraine Renal/ Medical History: Reports: Hx Kidney Stones, Hx Ovarian Cysts. Denies: Hx Peritoneal Dialysis GI Medical History: Reports: Hx Diverticulitis, Hx Gastroesophageal Reflux Disease, Hx Irritable Bowel Musculoskeltal Medical History: Reports Hx Arthritis - back, Reports Hx Musculoskeletal Trauma Skin Medical History: Reports Hx MRSA Psychiatric Medical History: Reports: Hx Anxiety, Hx Bipolar Disorder, Hx Depression, Hx Post Traumatic Stress Disorder Traumatic Medical History: Reports: Hx Fractures - hand Infectious Medical History: Reports: Hx MRSA Past Surgical History: Reports: Hx Abdominal Surgery, Hx Section - x 2, Hx Cholecystectomy, Hx Dilation and Curettage, Hx Gynecologic Surgery - D & C, Hx Hysterectomy, Hx Tubal Ligation. Denies: Hx Pacemaker - Immunizations Immunizations up to date: Yes Hx Diphtheria, Pertussis, Tetanus Vaccination: Yes - 2011 Physical Exam - Vital signs Vitals: Temp Pulse Resp BP Pulse Ox 98.7 F 83 18 150/92 H 96 08/31/18 18:29 08/31/18 18:29 08/31/18 18:29 08/31/18 18:29 08/31/18 18:29 Course - Vital Signs Vital signs: Temp Pulse Resp BP Pulse Ox 98.7 F 83 18 150/92 H 96 08/31/18 18:29 08/31/18 18:29 08/31/18 18:29 08/31/18 18:29 08/31/18 18:29
[2018-08-31] MEDS ORDERED: CIPROFLOXACIN 400 MG/D5W RTU 400 MG/200 ML RTUPB IV ONE (18:48)
[2018-08-31 19:41] LABS: APPEARANCE,URINE CLEAR; BILIRUBIN,URINE NEGATIVE (NEGATIVE); COLOR,URINE YELLOW; GLUCOSE, URINE NEGATIVE (NEGATIVE); KETONES,URINE NEGATIVE (NEGATIVE); LEUKOCYTE ESTERASE,URINE NEGATIVE (NEGATIVE); NITRITE,URINE NEGATIVE (NEGATIVE); PROTEIN,URINE NEGATIVE (NEGATIVE); URINE SPECIFIC GRAVITY 1.013; UROBILINOGEN,URINE NEGATIVE mg/dL (<2.0)
[2018-08-31 19:42] LABS: ABSOLUTE EOSINOPHILS # (AUTO) 0.2 10^3/uL (0.0-0.6); ABSOLUTE LYMPHOCYTES (AUTO) 3.4 10^3/uL (0.5-4.7); ABSOLUTE MONOCYTES (AUTO) 0.5 10^3/uL (0.1-1.4); ABSOLUTE NEUT (AUTO) 4.8 10^3/uL (1.7-8.2); BASOPHILS % (AUTO) 0.5 % (0-2); EOSINOPHILS % (AUTO) 2.7 % (0-6); HEMATOCRIT 42.5 % (36.0-47.0); HEMOGLOBIN 14.7 g/dL (12.0-15.5); LYMPHOCYTES % (AUTO) 37.4 % (13-45); MEAN CORPUSCULAR HEMOGLOBIN 30.6 pg (27.0-33.4); MEAN CORPUSCULAR HGB CONC 34.5 g/dL (32.0-36.0); MEAN CORPUSCULAR VOLUME 89 fl (80-97); MONOCYTES % (AUTO) 5.8 % (3-13); PLATELET COUNT 353 10^3/uL (150-450); RED BLOOD COUNT 4.79 10^6/uL (3.72-5.28); RED CELL DISTRIBUTION WIDTH 13.1 % (11.5-14.0); SEGMENTED NEUTROPHILS % (AUTO) 53.6 % (42-78); TOTAL CELLS COUNTED % (AUTO) 100 %
[2018-08-31 19:59] LABS: ALANINE AMINOTRANSFERASE 22 U/L (9-52); ALBUMIN 4.4 g/dL (3.5-5.0); ALKALINE PHOSPHATASE 46 U/L (38-126); ANION GAP 13 (5-19); ASPARTATE AMINO TRANSFERASE 19 U/L (14-36); BILIRUBIN,DIRECT 0.2 mg/dL (0.0-0.4); BILIRUBIN,TOTAL 0.5 mg/dL (0.2-1.3); BLOOD UREA NITROGEN 9 mg/dL (7-20); CALCIUM 9.7 mg/dL (8.4-10.2); CARBON DIOXIDE 22 mmol/L (22-30); CHLORIDE 110 mmol/L (98-107); GLUCOSE 87 mg/dL (75-110); POTASSIUM 4.2 mmol/L (3.6-5.0); SODIUM 144.6 mmol/L (137-145); TOTAL PROTEIN 7.6 g/dL (6.3-8.2)
--- NOTE | 2018-08-31 21:21 | ER Document Report ---
ED GI/ - General Chief Complaint: Flank Pain Stated Complaint: SICK Time Seen by Provider: 08/31/18 18:38 Notes: Patient is a 48 year old female that comes to the emergency room for chief complaint of right flank and groin pain, she states she went home, pain got worse, she states she vomited multiple times, she states she tried to fill her Cipro but it was "$38" and she was unable to fill it. She was seen here yesterday, diagnosed with pyelonephritis, had a negative ultrasound and CAT scan showing no nephrolithiasis or ureterolithiasis. She states she felt like she had a fever after she was discharged as well. TRAVEL OUTSIDE OF THE [place] IN LAST 30 DAYS: No - Related Data Allergies/Adverse Reactions: cefazolin [Cefazolin] Allergy (Intermediate, Verified 08/31/18 18:29) Hives hydromorphone HCl [From Dilaudid] Allergy (Mild, Verified 08/31/18 18:29) Facial edema and rash Sulfa (Sulfonamide Antibiotics) Allergy (Mild, Verified 08/31/18 18:29) erythromycin base [Erythromycin Base] Allergy (Unknown, Verified 08/31/18 18:29) cephalexin [Cephalexin] Allergy (Verified 08/31/18 18:29) cortisone [Cortisone] Allergy (Verified 08/31/18 18:29) Penicillins Allergy (Verified 08/31/18 18:29) Past Medical History - General Information source: Patient - Social History Smoking Status: Current Every Day Smoker Frequency of alcohol use: None Drug Abuse: None Lives with: Family Family History: Arthritis, CAD, CVA, DM, Hyperlipidemia, Hypertension, Lise gnancy, Thyroid Disfunction, Other - Kidney stones Patient has suicidal ideation: No Patient has homicidal ideation: No - Past Medical History Cardiac Medical History: Reports: Hx Hypertension Pulmonary Medical History: Reports: Hx Asthma, Hx Bronchitis, Hx Pneumonia Neurological Medical History: Reports: Hx Migraine Renal/ Medical History: Reports: Hx Kidney Stones, Hx Ovarian Cysts. Denies: Hx Peritoneal Dialysis GI Medical History: Reports: Hx Diverticulitis, Hx Gastroesophageal Reflux Disease, Hx Irritable Bowel Musculoskeletal Medical History: Reports Hx Arthritis - back, Reports Hx Musculoskeletal Trauma Skin Medical History: Reports Hx MRSA Psychiatric Medical History: Reports: Hx Anxiety, Hx Bipolar Disorder, Hx Dep ression, Hx Post Traumatic Stress Disorder Traumatic Medical History: Reports: Hx Fractures - hand Infectious Medical History: Reports: Hx MRSA Past Surgical History: Reports: Hx Abdominal Surgery, Hx Section - x 2, Hx Cholecystectomy, Hx Dilation and Curettage, Hx Gynecologic Surgery - D & C, Hx Hysterectomy, Hx Tubal Ligation. Denies: Hx Pacemaker - Immunizations Immunizations up to date: Yes Hx Diphtheria, Pertussis, Tetanus Vaccination: Yes - 2011 Hx Pneumococcal Vaccination: 11/10/11 Review of Systems - Review of Systems Constitutional: No symptoms reported EENT: No symptoms reported Cardiovascular: No symptoms reported Respiratory: No symptoms reported Gastrointestinal: See HPI Genitourinary: See HPI Female Genitourinary: No symptoms reported Musculoskeletal: No symptoms reported Skin: No symptoms reported Hematologic/Lymphatic: No symptoms reported Neurological/Psychological: No symptoms reported Physical Exam - Vital signs Vitals: Temp Pulse Resp BP Pulse Ox 98.7 F 83 18 150/92 H 96 08/31/18 18:29 08/31/18 18:29 08/31/18 18:29 08/31/18 18:29 08/31/18 18:29 - Notes Notes: GENERAL: Patient on her side groaning unless she is interacted with, when she is interacted with she is sitting up and appears well. HEAD: Normocephalic, atraumatic. EYES: Pupils equal, round, and reactive to light. Extraocular movements intact. ENT: Oral mucosa moist, tongue midline. Oropharynx unremarkable. Airway patent. Nares patent, no nasal septal hematoma, TM's intact. NECK: Full range of motion. Supple. Trachea midline. LUNGS: Clear to auscultation bilaterally, no wheezes, rales, or rhonchi. No respiratory distress. HEART: Regular rate and rhythm. No murmur ABDOMEN: Patient complains of abdominal tenderness regardless of where I press but no noted guarding, rigidity, or rebound tenderness by evaluation. No distention, unremarkable bowel sounds. GENITOURINARY: Deferred EXTREMITIES: Moves all 4 extremities spontaneously. No edema, normal radial and dorsalis pedis pulses bilaterally. No cyanosis. BACK: no cervical, thoracic, lumbar midline tenderness. No saddle anesthesia, normal distal neurovascular exam. Moves all extremities in full range of motion. NEUROLOGICAL: Alert and oriented x3. Normal speech. Cranial nerves II through XII grossly intact. PSYCH: Normal affect, normal mood. SKIN: Warm, dry, normal turgor. No rashes or lesions noted. Course - Re-evaluation Re-evalutation: Patient lying on the bed when I came in the room, she begins to patient states she has had a lot of discomfort, rolling around the bed, states she has been vomiting and thinks she is running a fever. She does not have a fever here. She is not tachycardic or hypotensive. She complains of pain wherever I press on her abdomen but her abdomen seems soft and benign without guarding. Patient also stops groaning and engages and then appears very well. Appears to be some anxiety/behavioral component. However I did review patient's previous work-up, she did have positive nitrites and bacteria, she did grow E. coli in her culture. Patient stating the Cipro was expensive, I explained this is most like ly an error but I did provide her with a good Rx card. I did discuss the patient with Dr. Ritchie who saw her yesterday. She had a negative CAT scan and ultrasound, low suspicion of infected ureterolithiasis. CBC unremarkable, chemistry unremarkable, urinalysis actually is unremarkable now. Patient was given a dose of Cipro here and dose of pain medication. Patient will be discharged, encouraged to fill her antibiotic prescription, and instructed come back if she worsens. Patient does state understanding and agreement with this plan. - Vital Signs Vital signs: Temp Pulse Resp BP Pulse Ox 98.7 F 83 18 150/92 H 96 08/31/18 18:29 08/31/18 18:29 08/31/18 18:29 08/31/18 18:29 08/31/18 18:29 - Laboratory Result Diagrams: 08/31/18 19:19 08/31/18 19:19 Laboratory results interpreted by me: 08/31/18 19:19 Chloride 110 H Discharge - Discharge Clinical Impression: Pyelonephritis Abdominal pain Qualifiers: Abdominal location: generalized Qualified Code(s): R10.84 - Generalized abdominal pain Condition: Stable Disposition: HOME, SELF-CARE Additional Instructions: Your urine culture does show a urinary tract infection consistent with suspected pyelonephritis, your imaging did not show passing or obstructed stones. Your remaining laboratory work-up does not show any concerning findings. Fill and take your antibiotics. Take the nausea medication if needed. Drink plenty fluids and rest. Follow-up with primary care. Return if you worsen including fever of 100.4 greater, uncontrolled vomiting, worsening pain, or any other concerning or worsening symptoms. Prescriptions: Promethazine HCl [Phenergan 25 mg Tablet] 25 mg PO Q6H PRN #15 tablet PRN Reason:
[2018-08-31] MEDS ORDERED: ONDANSETRON ODT 4 MG TAB (6 TAB/ER DISP) PO PRN (21:24)
[2018-08-31] MEDS ORDERED: HYDROCODONE/ACETAMINOPHEN 5-325 MG (6 TAB/ER DISP) PO PRN (21:24)
[2018-08-31] MEDS ORDERED: PROMETHAZINE HCL 25 MG TABLET PO ONE (21:25)
== END 2018-08-31 21:49 | disposition home or self-care (01) ==
LOC: ER 18:16
DX: N12 Tubulo-interstitial nephritis, not specified as acute or chronic (principal); B96.20 Unspecified Escherichia coli [E. coli] as the cause of diseases classified elsewhere; T36.8X6A Underdosing of other systemic antibiotics, initial encounter; Z91.120 Patient's intentional underdosing of medication regimen due to financial hardship; Z91.14 Patient's other noncompliance with medication regimen; R10.84 Generalized abdominal pain; R11.10 Vomiting, unspecified; I10 Essential (primary) hypertension; J45.909 Unspecified asthma, uncomplicated; F17.200 Nicotine dependence, unspecified, uncomplicated; Z88.1 Allergy status to other antibiotic agents; Z88.5 Allergy status to narcotic agent; Z88.2 Allergy status to sulfonamides; Z88.8 Allergy status to other drugs, medicaments and biological substances; Z88.0 Allergy status to penicillin
CPT/HCPCS: 96366; 99284; 96375; 96365; 36415; 85025; 80053; 81001; J3010; J2405; J0744

== ENCOUNTER 2018-10-01 18:34 | Emergency (ER) | payer OTHER ==
[2018-10-01] MEDS ORDERED: KETOROLAC TROMETHAMINE INJ/PF 30 MG/1 ML SDV IV ONE ×2 (18:57→20:25)
[2018-10-01] MEDS ORDERED: ONDANSETRON HCL INJ/PF 4 MG/2 ML SDV IV ONE ×2 (18:57→20:25)
[2018-10-01] MEDS ORDERED: NORMAL SALINE 1000 ML 1,000 ML IV ONE ×2 (18:57→20:27)
--- NOTE | 2018-10-01 19:02 | ER Document Report ---
ED Medical Screen (RME) - General Chief Complaint: Flank Pain Stated Complaint: RIGHT FLANK PAIN Time Seen by Provider: 10/01/18 18:55 Mode of Arrival: Wheelchair Information source: Patient Notes: Patient is a 48-year-old female with history of kidney stones presenting with a 3-day history of right-sided flank pain and vomiting. Patient denies any fevers or chills. Patient reports this feels the same as when she has had kidney stones in the past. Exam: Tenderness to palpation to the right flank area. I have greeted and performed a rapid initial assessment of this patient. A comprehensive ED assessment and evaluation of the patient, analysis of test results and completion of the medical decision making process will be conducted by additional ED providers. I have specifically instructed the patient or family members with the patient to immediately return to any nursing staff should anything change in the patient's condition or with their chief complaint. This medical record was dictated with voice recognizing software. There may be grammatical, syntax errors that are unintended. TRAVEL OUTSIDE OF THE [place] IN LAST 30 DAYS: No - Related Data Allergies/Adverse Reactions: cefazolin [Cefazolin] Allergy (Intermediate, Verified 10/01/18 18:41) Hives hydromorphone HCl [From Dilaudid] Allergy (Mild, Verified 10/01/18 18:41) Facial edema and rash Sulfa (Sulfonamide Antibiotics) Allergy (Mild, Verified 10/01/18 18:41) erythromycin base [Erythromycin Base] Allergy (Unknown, Verified 10/01/18 18:41) cephalexin [Cephalexin] Allergy (Verified 10/01/18 18:41) cortisone [Cortisone] Allergy (Verified 10/01/18 18:41) Penicillins Allergy (Verified 10/01/18 18:41) Past Medical History - Social History Chew tobacco use (# tins/day): No Frequency of alcohol use: None Drug Abuse: None - Past Medical History Cardiac Medical History: Reports: Hx Hypertension Pulmonary Medical History: Reports: Hx Asthma, Hx Bronchitis, Hx Pneumonia Neurological Medical History: Reports: Hx Migraine Renal/ Medical History: Reports: Hx Kidney Stones, Hx Ovarian Cysts. Denies: Hx Peritoneal Dialysis GI Medical History: Reports: Hx Diverticulitis, Hx Gastroesophageal Reflux Disease, Hx Irritable Bowel Musculoskeltal Medical History: Reports Hx Arthritis - back, Reports Hx Musculoskeletal Trauma Skin Medical History: Reports Hx MRSA Psychiatric Medical History: Reports: Hx Anxiety, Hx Bipolar Disorder, Hx Depression, Hx Post Traumatic Stress Disorder Traumatic Medical History: Reports: Hx Fractures - hand Infectious Medical History: Reports: Hx MRSA Past Surgical History: Reports: Hx Abdominal Surgery, Hx Section - x 2, Hx Cholecystectomy, Hx Dilation and Curettage, Hx Gynecologic Surgery - D & C, Hx Hysterectomy, Hx Tubal Ligation. Denies: Hx Pacemaker - Immunizations Immunizations up to date: Yes Hx Diphtheria, Pertussis, Tetanus Vaccination: Yes - 2011 Physical Exam - Vital signs Vitals: Temp Pulse Resp BP Pulse Ox 98.0 F 102 H 18 147/92 H 95 10/01/18 18:44 10/01/18 18:44 10/01/18 18:44 10/01/18 18:44 10/01/18 18:44 Course - Vital Signs Vital signs: Temp Pulse Resp BP Pulse Ox 98.0 F 102 H 18 147/92 H 95 10/01/18 18:44 10/01/18 18:44 10/01/18 18:44 10/01/18 18:44 10/01/18 18:44
[2018-10-01 19:21] LABS: ABSOLUTE BASOPHILS # (AUTO) 0.1 10^3/uL (0.0-0.2); ABSOLUTE EOSINOPHILS # (AUTO) 0.2 10^3/uL (0.0-0.6); ABSOLUTE LYMPHOCYTES (AUTO) 3.1 10^3/uL (0.5-4.7); ABSOLUTE MONOCYTES (AUTO) 0.7 10^3/uL (0.1-1.4); BASOPHILS % (AUTO) 1.4 % (0-2); EOSINOPHILS % (AUTO) 1.9 % (0-6); HEMATOCRIT 43.7 % (36.0-47.0); HEMOGLOBIN 15.2 g/dL (12.0-15.5); LYMPHOCYTES % (AUTO) 30.5 % (13-45); MEAN CORPUSCULAR HEMOGLOBIN 30.6 pg (27.0-33.4); MEAN CORPUSCULAR HGB CONC 34.8 g/dL (32.0-36.0); MEAN CORPUSCULAR VOLUME 88 fl (80-97); MONOCYTES % (AUTO) 6.4 % (3-13); PLATELET COUNT 394 10^3/uL (150-450); RED BLOOD COUNT 4.97 10^6/uL (3.72-5.28); RED CELL DISTRIBUTION WIDTH 12.7 % (11.5-14.0); SEGMENTED NEUTROPHILS % (AUTO) 59.8 % (42-78); TOTAL CELLS COUNTED % (AUTO) 100 %; WHITE BLOOD COUNT 10.1 10^3/uL (4.0-10.5)
[2018-10-01 19:39] LABS: ALANINE AMINOTRANSFERASE 25 U/L (9-52); ALBUMIN 4.8 g/dL (3.5-5.0); ALKALINE PHOSPHATASE 56 U/L (38-126); ANION GAP 14 (5-19); ASPARTATE AMINO TRANSFERASE 26 U/L (14-36); BILIRUBIN,DIRECT 0.2 mg/dL (0.0-0.4); BILIRUBIN,TOTAL 0.5 mg/dL (0.2-1.3); BLOOD UREA NITROGEN 17 mg/dL (7-20); CARBON DIOXIDE 21 mmol/L (22-30); CHLORIDE 106 mmol/L (98-107); GLUCOSE 123 mg/dL (75-110); LIPASE 88.1 U/L (23-300); POTASSIUM 4.1 mmol/L (3.6-5.0); SODIUM 140.7 mmol/L (137-145); TOTAL PROTEIN 8.3 g/dL (6.3-8.2)
[2018-10-01 20:00] LABS: APPEARANCE,URINE SLIGHTLY-CLOUDY; BILIRUBIN,URINE NEGATIVE (NEGATIVE); COLOR,URINE YELLOW; GLUCOSE, URINE NEGATIVE (NEGATIVE); KETONES,URINE NEGATIVE (NEGATIVE); LEUKOCYTE ESTERASE,URINE NEGATIVE (NEGATIVE); NITRITE,URINE NEGATIVE (NEGATIVE); PROTEIN,URINE NEGATIVE (NEGATIVE); URINE SPECIFIC GRAVITY 1.024; UROBILINOGEN,URINE NEGATIVE mg/dL (<2.0)
[2018-10-01] MEDS ORDERED: MORPHINE SULFATE 10 MG/ML INJ IV ONE (20:25)
[2018-10-01] MEDS ORDERED: CEFTRIAXONE 1 GM/D5W RTU 1 GM/50 ML RTUPB IV ONE (20:26)
[2018-10-01] MEDS ORDERED: CYCLOBENZAPRINE HCL 10 MG TABLET PO ONE (20:28)
--- NOTE | 2018-10-01 20:29 | ER Document Report ---
Entered by JAISON VASQUEZ SCRIBE 10/01/182022 Acting as scribe for:ZACKARY GUZMAN MD ED General - General Chief Complaint: Flank Pain Stated Complaint: RIGHT FLANK PAIN Time Seen by Provider: 10/01/18 18:55 Mode of Arrival: Wheelchair Notes: Patient is a 48-year-old female presenting to the emergency department complaining of right flank pain, with associated hematuria. Patient states that the pain feels in her kidney, started 4 days ago. Patient states that after taking Cipro the burning on urination stopped, but pain in her back continued. TRAVEL OUTSIDE OF THE [place] IN LAST 30 DAYS: No - Related Data Allergies/Adverse Reactions: cefazolin [Cefazolin] Allergy (Intermediate, Verified 10/01/18 18:41) Hives hydromorphone HCl [From Dilaudid] Allergy (Mild, Verified 10/01/18 18:41) Facial edema and rash Sulfa (Sulfonamide Antibiotics) Allergy (Mild, Verified 10/01/18 18:41) erythromycin base [Erythromycin Base] Allergy (Unknown, Verified 10/01/18 18:41) cephalexin [Cephalexin] Allergy (Verified 10/01/18 18:41) cortisone [Cortisone] Allergy (Verified 10/01/18 18:41) Penicillins Allergy (Verified 10/01/18 18:41) Past Medical History - General Information source: Patient - Social History Smoking Status: Current Every Day Smoker Cigarette use (# per day): Yes Chew tobacco use (# tins/day): No Frequency of alcohol use: None Drug Abuse: None Family History: Arthritis, CAD, CVA, DM, Hyperlipidemia, Hypertension, Malignancy, Thyroid Disfunction, Other - Kidney stones Patient has suicidal ideation: No Patient has homicidal ideation: No - Past Medical History Cardiac Medical History: Reports: Hx Hypertension Pulmonary Medical History: Reports: Hx Asthma, Hx Bronchitis, Hx Pneumonia Neurological Medical History: Reports: Hx Migraine Renal/ Medical History: Reports: Hx Kidney Stones, Hx Ovarian Cysts. Denies: Hx Peritoneal Dialysis GI Medical History: Reports: Hx Diverticulitis, Hx Gastroesophageal Reflux Disease, Hx Irritable Bowel Musculoskeletal Medical History: Reports Hx Arthritis - back, Reports Hx Musculoskeletal Trauma Skin Medical History: Reports Hx MRSA Psychiatric Medical History: Reports: Hx Anxiety, Hx Bipolar Disorder, Hx Depression, Hx Post Traumatic Stress Disorder Traumatic Medical History: Reports: Hx Fractures - hand Infectious Medical History: Reports: Hx MRSA Past Surgical History: Reports: Hx Abdominal Surgery, Hx Section - x 2, Hx Cholecystectomy, Hx Dilation and Curettage, Hx Gynecologic Surgery - D & C, Hx Hysterectomy, Hx Tubal Ligation. Denies: Hx Pacemaker - Immunizations Immunizations up to date: Yes Hx Diphtheria, Pertussis, Tetanus Vaccination: Yes - 2011 Hx Pneumococcal Vaccination: 11/10/11 Review of Systems - Review of Systems Constitutional: No symptoms reported EENT: No symptoms reported Cardiovascular: No symptoms reported Respiratory: No symptoms reported Gastrointestinal: No symptoms reported Genitourinary: No symptoms reported Female Genitourinary: See HPI, Vaginal bleeding Musculoskeletal: See HPI, Back pain Skin: No symptoms reported Hematologic/Lymphatic: No symptoms reported Neurological/Psychological: No symptoms reported -: Yes All other systems reviewed and negative Physical Exam - Vital signs Vitals: Temp Pulse Resp BP Pulse Ox 98.0 F 102 H 18 147/92 H 95 10/01/18 18:44 10/01/18 18:44 10/01/18 18:44 10/01/18 18:44 10/01/18 18:44 - Notes Notes: Physical Exam: General: Alert, appears well. HEENT: Normocephalic. Atraumatic. PERRL. Extraocular movements intact. O ropharynx clear. Neck: Supple. Non-tender. Respiratory: No respiratory distress. Clear and equal breath sounds bilaterally. Cardiovascular: Regular rate and rhythm. 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 Right lower section of the back tenderness to palpation. Abdominal: Mid section of abdomen tenderness to palpation. Right upper quadrant tenderness to palpation. Right lower quadrant mildly tender to palpation. No distension. Normal Bowel Sounds. Back: Non-tender. No deformity or step off. Extremities: Moves all four extremities. Upper extremities: Normal inspection. Normal ROM. Lower extremities: Normal inspection. No edema. Normal ROM. Neurological: Normal cognition. AAOx4. Normal speech. Psychological: Normal affect. Normal Mood. Skin: Warm. Dry. Normal color. Course - Re-evaluation Re-evalutation: 10/01/18 22:09 On the patient's 2 visits last month on 08/30/2018, and 08/31/2018, she did not have a leukocytosis. The urinalysis did suggest urinary tract infection and culture confirmed that. She does describe that the dysuria she had cleared with Cipro, but the flank pain never cleared. Physical exam today shows this flank pain to be muscular problem. Later history from family reports that her son and her friend have been popping her back to try to help her back pain. I suspect that may be part of the reason why she is not getting any better. Due to her urinal ysis which really did not suggest much infection still growing greater than 100,000 E. coli, I will put her back on antibiotics for now. She also be prescribed muscle relaxer and recommended to take ibuprofen. She is recommended to stop doing any activity that makes her back hurt more, and to get a local medical provider to follow-up with. 10/01/18 22:13 The patient's chart does state that she is allergic to cefazolin and cephalexin. She has had cephalexin before without problems. She has had Rocephin without problems. She has had cefazolin without problems. I will have the nurse remove that allergy from her chart. - Vital Signs Vital signs: Temp Pulse Resp BP Pulse Ox 98.0 F 102 H 18 147/92 H 95 10/01/18 18:44 10/01/18 18:44 10/01/18 18:44 10/01/18 18:44 10/01/18 18:44 - Laboratory Result Diagrams: 10/01/18 19:06 10/01/18 19:06 Laboratory results interpreted by me: 10/01/18 19:06 Carbon Dioxide 21 L Glucose 123 H Total Protein 8.3 H Discharge - Discharge Clinical Impression: Flank pain, chronic Condition: Stable Disposition: HOME, SELF-CARE Additional Instructions: Flank Pain We weren't able to prove an exact cause for your flank pain. Pain in the flank can be caused by a muscle strain or spasm. Sometimes a kidney stone causes pain, but can't be found on our tests. Infection in the kidney should be evident on a urine test. Early shingles can occasionally cause flank pain, without the rash that proves the diagnosis. On rare occasions, disease of the pancreas, aorta, spleen, or colon can create pain in the flank. At this time, there's no evidence of a dangerous condition, and it seems safe for you to be at home. If the pain goes away and does not come back, no further testing will be needed. If pain persists, or becomes more severe, we may need to repeat some tests or order additional new testing. Blood in the urine, urgency to urinate frequently, and pain that radiates to the groin can indicate a kidney stone. Fever may mean that the pain is due to infection, either of the kidney or the colon (diverticulitis). If your pain is early shingles, you should develop an eruption of blisters in the painful area within a few days. Call the doctor or return if you have pain that is spreading or becoming more severe, pain that does not resolve with time, fever, or any other new symptoms. Take medications as prescribed. Drink lots of fluids throughout the day in the evening for the next few days. Take ibuprofen 800 mg every 8 hours, or 2 Aleve tablets every 12 hours for your back pain. Stop having your friends and family crack or pop your back. Avoid any activity that tends to make the flank and back pain hurt more. Follow-up with a local primary care provider if not improving over the next 1 to 2 weeks. RETURN TO THE EMERGENCY ROOM IF ANY NEW OR WORSENING SYMPTOMS. Prescriptions: Cephalexin Monohydrate [Keflex 500 mg Capsule] 500 mg PO TID #15 capsule Cyclobenzaprine HCl [Flexeril 5 mg Tablet] 5 mg PO TID PRN #15 tablet PRN Reason: Scribe Attestation: 10/01/18 21:17 I personally performed the services described in the documentation, reviewed and edited the documentation which was dictated to the scribe in my presence, and it accurately records my words and actions. I personally performed the services described in the documentation, reviewed and edited the documentation which was dictated to the scribe in my presence, and it accurately records my words and actions.
[2018-10-01 22:37] VITALS: BP 122/85
== END 2018-10-01 22:36 | disposition home or self-care (01) ==
LOC: ER 18:34
DX: G89.29 Other chronic pain (principal); R10.9 Unspecified abdominal pain; R31.9 Hematuria, unspecified; N93.8 Other specified abnormal uterine and vaginal bleeding; R30.0 Dysuria; M54.9 Dorsalgia, unspecified; F17.210 Nicotine dependence, cigarettes, uncomplicated; I10 Essential (primary) hypertension; Z88.6 Allergy status to analgesic agent; Z88.2 Allergy status to sulfonamides; Z88.3 Allergy status to other anti-infective agents; Z88.0 Allergy status to penicillin; Z86.14 Personal history of Methicillin resistant Staphylococcus aureus infection; Z90.710 Acquired absence of both cervix and uterus
CPT/HCPCS: 96376; 99284; 96361; 96375; 96365; 36415; 87086; 83690; 84703; 85025; 80053; 81001; J1885; J2270; J2405; J7030; J0696

== ENCOUNTER 2019-04-17 16:51 | Emergency (ER) | payer OTHER ==
[2019-04-17] MEDS ORDERED: OXYCODONE-ACETAMINOPHEN 5-325 MG TABLET PO ONE ×2 (17:29→20:46)
--- NOTE | 2019-04-17 18:20 | ER Document Report ---
ED Medical Screen (RME) - General Chief Complaint: Fall Injury Stated Complaint: FALL/RIGHT HIP PAIN Time Seen by Provider: 04/17/19 17:26 Mode of Arrival: Wheelchair Information source: Patient Notes: 49-year-old female patient presented to the emergency department after a mechanical fall. Patient reports she fell, landing on her right hip. She states she has been unable to bear weight since this occurred. She states long has lasting history of osteoarthritis and degenerative disc disease. Exam: Strong dorsalis pedis pulse, normal motor and sensation distal to area of concern. I have greeted and performed a rapid initial assessment of this patient. A comprehensive ED assessment and evaluation of the patient, analysis of test results and completion of the medical decision making process will be conducted by additional ED providers. I have specifically instructed the patient or family members with the patient to immediately return to any nursing staff should anything change in the patient's condition or with their chief complaint. TRAVEL OUTSIDE OF THE [place] IN LAST 30 DAYS: No - Related Data Allergies/Adverse Reactions: hydromorphone HCl [From Dilaudid] Allergy (Mild, Verified 04/17/19 17:22) Facial edema and rash Sulfa (Sulfonamide Antibiotics) Allergy (Mild, Verified 04/17/19 17:22) erythromycin base [Erythromycin Base] Allergy (Unknown, Verified 04/17/19 17:22) cortisone [Cortisone] Allergy (Verified 04/17/19 17:22) Penicillins Allergy (Verified 04/17/19 17:22) Home Medications: arthritis. ptsd. depression. anxiety. agoraphobia. Past Medical History - Social History Chew tobacco use (# tins/day): No Frequency of alcohol use: None Drug Abuse: None - Past Medical History Cardiac Medical History: Reports: Hx Hypertension Pulmonary Medical History: Reports: Hx Asthma, Hx Bronchitis, Hx Pneumonia Neurological Medical History: Reports: Hx Migraine. Denies: Hx Parkinson's Disease Renal/ Medical History: Reports: Hx Kidney Stones, Hx Ovarian Cysts. Denies: Hx Peritoneal Dialysis GI Medical History: Reports: Hx Diverticulitis, Hx Gastroesophageal Reflux Disease, Hx Irritable Bowel Musculoskeltal Medical History: Reports Hx Arthritis - back, Reports Hx Musculoskeletal Trauma Skin Medical History: Reports Hx MRSA Psychiatric Medical History: Reports: Hx Anxiety, Hx Bipolar Disorder, Hx Depression, Hx Post Traumatic Stress Disorder Traumatic Medical History: Reports: Hx Fractures - hand Infectious Medical History: Reports: Hx MRSA Past Surgical History: Reports: Hx Abdominal Surgery, Hx Section - x 2, Hx Cholecystectomy, Hx Dilation and Curettage, Hx Gynecologic Surgery - D & C, Hx Hysterectomy, Hx Tubal Ligation. Denies: Hx Pacemaker - Immunizations Immunizations up to date: Yes Hx Diphtheria, Pertussis, Tetanus Vaccination: Yes - 2011 Physical Exam - Vital signs Vitals: Temp Pulse Resp BP Pulse Ox 98.4 F 81 16 131/80 H 97 04/17/19 17:07 04/17/19 17:07 04/17/19 17:07 04/17/19 17:07 04/17/19 17:07 Course - Vital Signs Vital signs: Temp Pulse Resp BP Pulse Ox 98.4 F 81 16 131/80 H 97 04/17/19 17:07 04/17/19 17:07 04/17/19 17:07 04/17/19 17:07 04/17/19 17:07
--- NOTE | 2019-04-17 18:47 | RADIOLOGY REPORT (SQ) ---
EXAM DESCRIPTION: HIP RIGHT AP/LATERAL COMPLETED DATE/TIME: 04/17/2019 6:21 pm REASON FOR STUDY: fall COMPARISON: 04/01/2018 NUMBER OF VIEWS: Two views. TECHNIQUE: AP pelvis and additional frog-leg view of the right hip. LIMITATIONS: None. FINDINGS: MINERALIZATION: Normal. RIGHT HIP: No fracture dislocation. Joint space narrowing with small subchondral cysts. LEFT HIP: No fracture or dislocation. No worrisome bone lesions. PUBIS AND ISCHIUM: No fracture. PELVIS: No fracture. SACRUM: No fracture or dislocation. No worrisome bone lesions. LOWER LUMBAR SPINE: No fracture or dislocation. No worrisome bone lesions. No significant disc disea se. SOFT TISSUES: No findings. OTHER: No other significant finding. IMPRESSION: Degenerative joint disease in the right hip. No fracture or dislocation. TECHNICAL DOCUMENTATION: JOB ID: [id number] [employer]- All Rights Reserved Reading location - IP/workstation name: [email or web address]
[2019-04-17 19:59] VITALS: BP 152/78
[2019-04-17] MEDS ORDERED: CYCLOBENZAPRINE HCL 10 MG TABLET PO ONE (20:46)
[2019-04-17] MEDS ORDERED: HYDROCODONE/ACETAMINOPHEN 5-325 MG (6 TAB/ER DISP) PO PRN (20:47)
--- NOTE | 2019-04-17 21:31 | ER Document Report ---
Entered by JOAQUÍN COLLAZO SCRIBE 04/17/192025 Acting as scribe for:COTY HERNANDEZ IV, MD ED Fall - General Chief Complaint: Fall Injury Stated Complaint: FALL/RIGHT HIP PAIN Time Seen by Provider: 04/17/19 17:26 Primary Care Provider: IDRIS MCCLURE MD [HONORARY] - Follow up as needed Mode of Arrival: Wheelchair Information source: Patient Notes: This 49 year old female patient presents to the ED today with complaints of right hip pain post fall that occurred around 4-4:30 PM today. Patient states that she was getting out of bed when her "leg gave out" and she fell onto the floor. Patient denies a head injury. Patient states that she has a history of her leg "locking up" and sciatica, but has not been seen or treated medically for her symptoms due to her lack of insurance. Patient has a history of osteoarthritis and degenerative disc disease. TRAVEL OUTSIDE OF THE [place] IN LAST 30 DAYS: No - Related data Allergies/Adverse Reactions: hydromorphone HCl [From Dilaudid] Allergy (Mild, Verified 04/17/19 17:22) Facial edema and rash Sulfa (Sulfonamide Antibiotics) Allergy (Mild, Verified 04/17/19 17:22) erythromycin base [Erythromycin Base] Allergy (Unknown, Verified 04/17/19 17:22) cortisone [Cortisone] Allergy (Verified 04/17/19 17:22) Penicillins Allergy (Verified 04/17/19 17:22) Home Medications: arthritis. ptsd. depression. anxiety. agoraphobia. Past Medical History - General Information source: Patient - Social History Smoking Status: Current Every Day Smoker Chew tobacco use (# tins/day): No Frequency of alcohol use: None Drug Abuse: None Family History: Reviewed & Not Pertinent, Arthritis, CAD, CVA, DM, Hyperlipidemia, Hypertension, Malignancy, Thyroid Disfunction, Other - Kidney stones Patient has suicidal ideation: No Patient has homicidal ideation: No - Past Medical History Cardiac Medical History: Reports: Hx Hypertension Pulmonary Medical History: Reports: Hx Asthma, Hx Bronchitis, Hx Pneumonia Neurological Medical History: Reports: Hx Migraine Renal/ Medical History: Reports: Hx Kidney Stones, Hx Ovarian Cysts GI Medical History: Reports: Hx Diverticulitis, Hx Gastroesophageal Reflux Disease, Hx Irritable Bowel Musculoskeletal Medical History: Reports Hx Arthritis - back, Reports Hx Musculoskeletal Trauma Skin Medical History: Reports Hx MRSA Psychiatric Medical History: Reports: Hx Anxiety, Hx Bipolar Disorder, Hx Depression, Hx Post Traumatic Stress Disorder Traumatic Medical History: Reports: Hx Fractures - hand Infectious Medical History: Reports: Hx MRSA Past Surgical History: Reports: Hx Abdominal Surgery, Hx Section - x 2, Hx Cholecystectomy, Hx Dilation and Curettage, Hx Gynecologic Surgery - D & C, Hx Hysterectomy, Hx Tubal Ligation - Immunizations Immunizations up to date: Yes Hx Diphtheria, Pertussis, Tetanus Vaccination: Yes - 2011 Hx Pneumococcal Vaccination: 11/10/11 Review of Systems - Review of Systems Constitutional: No symptoms reported EENT: No symptoms reported Cardiovascular: No symptoms reported Respiratory: No symptoms reported Gastrointestinal: No symptoms reported Genitourinary: No symptoms reported Female Genitourinary: No symptoms reported Musculoskeletal: See HPI, Other - Right hip pain Skin: No symptoms reported Hematologic/Lymphatic: No symptoms reported Neurological/Psychological: No symptoms reported -: Yes All other systems reviewed and negative Physical Exam - Vital signs Vitals: Temp Pulse Resp BP Pulse Ox 98.4 F 81 16 131/80 H 97 04/17/19 17:07 04/17/19 17:07 04/17/19 17:07 04/17/19 17:07 04/17/19 17:07 Interpretation: Normal - General General appearance: Alert - HEENT Head: Normocephalic, Atraumatic Eyes: Normal Pupils: PERRL - Respiratory Respiratory status: No respiratory distress Chest status: Nontender Breath sounds: Normal Chest palpation: Normal - Cardiovascular Rhythm: Regular Heart sounds: Normal auscultation Murmur: No - Abdominal Inspection: Normal Distension: No distension Bowel sounds: Normal Tenderness: Nontender - Abdomen soft Organomegaly: No organomegaly - Back Back: Normal, Nontender - Extremities General upper extremity: Normal inspection General lower extremity: Other - Patient has difficulty with extending the RLE at the knee joint and difficulty bearing weight. Antalgic gait noted. - Neurological Neuro grossly intact: Yes - Psychological Associated symptoms: Normal affect, Normal mood - Skin Skin Temperature: Warm Skin Moisture: Dry Skin Color: Normal Course - Re-evaluation Re-evalutation: 04/17/19 20:50 Results of ED MSE discussed with patient and patient's family. All questions were answered prior to discharge. Emergency signs and symptoms, reasons to return to the emergency department discussed with patient. When asked if everything about her ED visit today was explained in a way she could understand patient answered in the affirmative. Differential diagnosis: Hip contusion, hip fracture, hip dislocation. Assessment and plan: Impression: Right hip contusion. Plan: Analgesic medication, right knee immobilizer, crutches. No weightbearing for the first 48 hours then progressive weightbearing as tolerated. Patient is complaining of "knee locking up" on the right side and requested the knee immobilizer. Patient states she does not have insurance and will not be able to be seen by an orthopedist. Patient states she does see providers that [facility]. - Vital Signs Vital signs: Temp Pulse Resp BP Pulse Ox 98.5 F 71 19 152/78 H 99 04/17/19 19:58 04/17/19 19:58 04/17/19 19:58 04/17/19 19:58 04/17/19 19:58 - Diagnostic Test Radiology reviewed: Reports reviewed Discharge - Discharge Clinical Impression: Contusion of right hip, initial encounter Condition: Good Disposition: HOME, SELF-CARE Additional Instructions: Return to the Emergency Department without delay if any worse. HOME CARE INSTRUCTIONS & INFORMATION: Thank you for choosing us for your medical needs. We hope you're satisfied with the care you received. After you leave, you must properly care for your problem and, at the same time, observe its progress. Any condition can change. Some illnesses can change rapidly over hours or days. If your condition worsens, return to the Emergency Department or see your physician promptly. ABOUT YOUR X-RAYS AND EKG'S: If you had an EKG or X-rays taken, they have been read by the Emergency Physician. The X-rays and EKG's will also be read by a Radiologist or Thread Winder within 24 hours. If discrepancies are noted, you will be notified by telephone. Please be certain the ED has a correct telephone number & address where you can be reached. Also, realize that some fractures or abnormalities do not show up on initial X-rays. If your symptoms continue, see your physician. ABOUT YOUR LABORATORY TEST: If you had laboratory tests, the results have been reviewed by the Emergency Physician. Some test results (for example cultures) may not be available for several days. You will be contacted if any test result shows you need additional treatment. Please be certain the ED has a correct telephone number and address where you can be reached. ABOUT YOUR MEDICATIONS: You will receive instructions on how to take your medicine on the prescription label you receive. Additional information may be provided by the Pharmacy. If you have questions afterwards, call the ED for clarification or further instructions. Some prescribed medications may cause drowsiness. Do not perform tasks such as driving a car or operating machinery without consulting your Pharmacist. If you feel you need a refill of pain medication, your condition will need re-evaluation. Please do not call for a refill of any medication. ABOUT YOUR SIGNATURE: Signature of this document acknowledges to followin. Understanding that you received emergency treatment and that you may be released before al medical problems are known or treated. Please be certain the ED has a correct phone number & address where you can be reached. 2. Acknowledgement that you will arrange for follow-up care as recommended. 3. Authorization for the Emergency Physician to provide information to your follow-up Physician in order to maximize your care. AT ANY TIME, IF YOUR SYMPTOMS CHANGE SIGNIFICANTLY OR WORSEN OR YOU DEVELOP NEW SYMPTOMS, RETURN TO THE EMERGENCY DEPARTMENT IMMEDIATELY FOR RE-EVALUATION. OUR GOAL IS TO PROVIDE EXCELLENT MEDICAL CARE! WE HOPE THAT WE HAVE MET YOUR EXPECTATIONS DURING YOUR EMERGENCY DEPARTMENT VISIT AND THAT YOU FEEL YOU HAVE RECEIVED EXCELLENT CARE! Contusion Your injury has resulted in a contusion -- a crushing of the deep tissues. No injury to important structures was detected during the physician's exam. Contusions vary in the amount of pain they cause, and in the length of time required for healing. Typically, the area will become bruised, and will remain painful to touch for two or three weeks. However, most patients are back to working and playing within a few days. After the initial period of rest and cold-packs, your symptoms (together with the doctor's recommendations) will determine how rapidly you can get back to full activity. Usually this means "do what feels okay, but don't do things that hurt." If re-examination was recommended, it's important to follow up as instructed. Call the doctor or return any time if pain increases, if swelling becomes severe, if you develop numbness or weakness in an injured extremity, or if any other alarming symptoms occur. Prescriptions: Oxycodone HCl/Acetaminophen [Percocet 5-325 mg Tablet] 1 tab PO Q6HP PRN #20 tablet PRN Reason: severe pain Cyclobenzaprine HCl [Flexeril 10 mg Tablet] 10 mg PO TIDP PRN #21 tablet PRN Reason: muscle spasm Referrals: IDRIS MCCLURE MD [HONORARY] - Follow up as needed I personally performed the services described in the documentation, reviewed and edited the documentation which was dictated to the scribe in my presence, and it accurately records my words and actions.
== END 2019-04-17 21:27 | disposition home or self-care (01) ==
LOC: ER 16:51
DX: S70.01XA Contusion of right hip, initial encounter (principal); M25.551 Pain in right hip; W19.XXXA Unspecified fall, initial encounter; F17.200 Nicotine dependence, unspecified, uncomplicated; I10 Essential (primary) hypertension; J45.909 Unspecified asthma, uncomplicated
CPT/HCPCS: 99283; 73502; L1830

== ENCOUNTER 2019-04-21 11:40 | Observation (INO) | payer OTHER ==
--- NOTE | 2019-04-21 12:30 | ER Document Report ---
ED Medical Screen (RME) - General Chief Complaint: Abnormal Lab Results Stated Complaint: ABNORMAL LABS Time Seen by Provider: 04/21/19 12:24 TRAVEL OUTSIDE OF THE [place] IN LAST 30 DAYS: No - HPI Notes: 04/21/19 12:27 49-year-old female presents emergency room for direct admission by Dr. Montaño for hematuria and left arthroplasty with sciatica for her to receive a CT abdomen pelvis, MRI of lower back and blood work. Patient was seen in his office this morning and he is direct admitting her today. Vitals are stable. Denies any bowel or bladder dysfunction. Denies fevers, chills, chest pain,pa lpitations, shortness of breath, dyspnea, nausea, vomiting, diarrheahematuria, speech changes, LH, dizziness, syncope, headaches, wheezing,weakness, bowel or bladder dysfunction, saddle anesthesia. patient is ambulating via wheelchair. Patient is a [] that presents to the emergency department for chief complaint of []. []. ROS: Other than noted above, the 12 point review of systems was reviewed with the patient and were negative, all pertinent findings are included in the HPI. PHYSICAL EXAMINATION: Vital signs reviewed. GENERAL: Chronically ill, well-nourished and in mild distress HEAD: Atraumatic, normocephalic. NECK: Normal range of motion CV: Heart regular rate and rhythm LUNGS: No respiratory distress NEUROLOGICAL: Normal speech PSYCH: Normal mood, normal affect. MDM: Patient seen and examined for rapid initial assessment. Vital signs reviewed. A comprehensive ED assessment and evaluation of the patient, analysis of test results and completion of the medical decision making process will be conducted by additional ED providers. *Note is created using voice recognition software and may contain spelling, syntax or grammatical errors. - Related Data Allergies/Adverse Reactions: hydromorphone HCl [From Dilaudid] Allergy (Mild, Verified 04/17/19 17:22) Facial edema and rash Sulfa (Sulfonamide Antibiotics) Allergy (Mild, Verified 04/17/19 17:22) erythromycin base [Erythromycin Base] Allergy (Unknown, Verified 04/17/19 17:22) cortisone [Cortisone] Allergy (Verified 04/17/19 17:22) Penicillins Allergy (Verified 04/17/19 17:22) Past Medical History - Past Medical History Cardiac Medical History: Reports: Hx Hypertension Pulmonary Medical History: Reports: Hx Asthma, Hx Bronchitis, Hx Pneumonia Neurological Medical History: Reports: Hx Migraine. Denies: Hx Parkinson's Disease Renal/ Medical History: Reports: Hx Kidney Stones, Hx Ovarian Cysts. Denies: Hx Peritoneal Dialysis GI Medical History: Reports: Hx Diverticulitis, Hx Gastroesophageal Reflux Disease, Hx Irritable Bowel Musculoskeltal Medical History: Reports Hx Arthritis - back, Reports Hx Musculoskeletal Trauma Skin Medical History: Reports Hx MRSA Psychiatric Medical History: Reports: Hx Anxiety, Hx Bipolar Disorder, Hx Depression, Hx Post Traumatic Stress Disorder Traumatic Medical History: Reports: Hx Fractures - hand Infectious Medical History: Reports: Hx MRSA Past Surgical History: Reports: Hx Abdominal Surgery, Hx Section - x 2, Hx Cholecystectomy, Hx Dilation and Curettage, Hx Gynecologic Surgery - D & C, Hx Hysterectomy, Hx Tubal Ligation. Denies: Hx Pacemaker - Immunizations Immunizations up to date: Yes Hx Diphtheria, Pertussis, Tetanus Vaccination: Yes - 2011 Physical Exam - Vital signs Vitals: Temp Pulse Resp BP Pulse Ox 98.1 F 79 20 150/81 H 100 04/21/19 12:11 04/21/19 12:11 04/21/19 12:11 04/21/19 12:11 04/21/19 12:11 Course - Vital Signs Vital signs: Temp Pulse Resp BP Pulse Ox 98.1 F 79 20 150/81 H 100 04/21/19 12:11 04/21/19 12:11 04/21/19 12:11 04/21/19 12:11 04/21/19 12:11
[2019-04-21] MEDS ORDERED: NORMAL SALINE 1000 ML 1,000 ML IV PRN (13:12)
[2019-04-21] MEDS ORDERED: HYDROMORPHONE HCL INJ/PF 2 MG/ML AMPULE IV PRN (13:14)
--- NOTE | 2019-04-21 13:18 | ER Document Report ---
ED General - General Chief Complaint: Direct Admit/Private MD Stated Complaint: ABNORMAL LABS Time Seen by Provider: 04/21/19 12:24 TRAVEL OUTSIDE OF THE [place] IN LAST 30 DAYS: No - Related Data Allergies/Adverse Reactions: hydromorphone HCl [From Dilaudid] Allergy (Mild, Verified 04/21/19 12:36) Facial edema and rash Sulfa (Sulfonamide Antibiotics) Allergy (Mild, Verified 04/21/19 12:36) erythromycin base [Erythromycin Base] Allergy (Unknown, Verified 04/21/19 12:36) cortisone [Cortisone] Allergy (Verified 04/21/19 12:36) Penicillins Allergy (Verified 04/21/19 12:36) Past Medical History - Social History Smoking Status: Current Every Day Smoker Chew tobacco use (# tins/day): No Frequency of alcohol use: None Drug Abuse: None Family History: Reviewed & Not Pertinent, Arthritis, CAD, CVA, DM, Hyperlipidemia, Hypertension, Malignancy, Thyroid Disfunction, Other - Kidney stones Patient has suicidal ideation: No Patient has homicidal ideation: No - Past Medical History Cardiac Medical History: Reports: Hx Hypertension Pulmonary Medical History: Reports: Hx Asthma, Hx Bronchitis, Hx Pneumonia Neurological Medical History: Reports: Hx Migraine. Denies: Hx Parkinson's Disease Renal/ Medical History: Reports: Hx Kidney Stones, Hx Ovarian Cysts. Denies: Hx Peritoneal Dialysis GI Medical History: Reports: Hx Diverticulitis, Hx Gastroesophageal Reflux Disease, Hx Irritable Bowel Musculoskeletal Medical History: Reports Hx Arthritis - back, Reports Hx Musculoskeletal Trauma Skin Medical History: Reports Hx MRSA Psychiatric Medical History: Reports: Hx Anxiety, Hx Bipolar Disorder, Hx Depression, Hx Post Traumatic Stress Disorder Traumatic Medical History: Reports: Hx Fractures - hand Infectious Medical History: Reports: Hx MRSA Past Surgical History: Reports: Hx Abdominal Surgery, Hx Section - x 2, Hx Cholecystectomy, Hx Dilation and Curettage, Hx Gynecologic Surgery - D & C, Hx Hysterectomy, Hx Tubal Ligation. Denies: Hx Pacemaker - Immunizations Immunizations up to date: Yes Hx Diphtheria, Pertussis, Tetanus Vaccination: Yes - 2011 Hx Pneumococcal Vaccination: 11/10/11 Physical Exam - Vital signs Vitals: Temp Pulse Resp BP Pulse Ox 98.1 F 79 20 150/81 H 100 04/21/19 12:11 04/21/19 12:11 04/21/19 12:11 04/21/19 12:11 04/21/19 12:11 Course - Re-evaluation Re-evalutation: 04/21/19 13:[address] Montaño for work-up of back pain and hematuria Stable in the ED Not evaluated by me but I did start a note in order to facilitate bed req - Vital Signs Vital signs: Temp Pulse Resp BP Pulse Ox 98.1 F 79 20 150/81 H 100 04/21/19 12:11 04/21/19 12:11 04/21/19 12:11 04/21/19 12:11 04/21/19 12:11 Discharge - Discharge Clinical Impression: Hematuria Qualifiers: Hematuria type: unspecified type Qualified Code(s): R31.9 - Hematuria, unspecified Condition: Good Disposition: ADMITTED INPATIENT Admitting Provider: Danyel Unit Admitted: Medical Floor
[2019-04-21] MEDS: MORPHINE SULFATE 10 MG/ML INJ IV PRN ×2 (13:27→22:17)
[2019-04-21] MEDS ORDERED: LORAZEPAM INJ 2 MG/1 ML VIAL IV ONE (13:40)
[2019-04-21 13:42] LABS: ABSOLUTE BASOPHILS # (AUTO) 0.1 10^3/uL (0.0-0.2); ABSOLUTE EOSINOPHILS # (AUTO) 0.2 10^3/uL (0.0-0.6); ABSOLUTE LYMPHOCYTES (AUTO) 2.8 10^3/uL (0.5-4.7); ABSOLUTE MONOCYTES (AUTO) 0.7 10^3/uL (0.1-1.4); ABSOLUTE NEUT (AUTO) 4.7 10^3/uL (1.7-8.2); EOSINOPHILS % (AUTO) 2.4 % (0-6); HEMATOCRIT 41.5 % (36.0-47.0); HEMOGLOBIN 14.6 g/dL (12.0-15.5); LYMPHOCYTES % (AUTO) 33.4 % (13-45); MEAN CORPUSCULAR HEMOGLOBIN 31.3 pg (27.0-33.4); MEAN CORPUSCULAR HGB CONC 35.3 g/dL (32.0-36.0); MEAN CORPUSCULAR VOLUME 89 fl (80-97); MONOCYTES % (AUTO) 7.8 % (3-13); PLATELET COUNT 306 10^3/uL (150-450); RED BLOOD COUNT 4.68 10^6/uL (3.72-5.28); RED CELL DISTRIBUTION WIDTH 13.3 % (11.5-14.0); SEGMENTED NEUTROPHILS % (AUTO) 55.4 % (42-78); TOTAL CELLS COUNTED % (AUTO) 100 %; WHITE BLOOD COUNT 8.5 10^3/uL (4.0-10.5)
[2019-04-21 14:02] LABS: ALBUMIN 4.5 g/dL (3.5-5.0); ALKALINE PHOSPHATASE 47 U/L (38-126); ANION GAP 12 (5-19); ASPARTATE AMINO TRANSFERASE 21 U/L (14-36); BILIRUBIN,DIRECT 0.3 mg/dL (0.0-0.4); BILIRUBIN,TOTAL 0.4 mg/dL (0.2-1.3); BLOOD UREA NITROGEN 12 mg/dL (7-20); CALCIUM 9.8 mg/dL (8.4-10.2); CARBON DIOXIDE 25 mmol/L (22-30); CHLORIDE 105 mmol/L (98-107); GLUCOSE 98 mg/dL (75-110); POTASSIUM 4.1 mmol/L (3.6-5.0); TOTAL PROTEIN 7.9 g/dL (6.3-8.2)
--- NOTE | 2019-04-21 14:11 | RADIOLOGY REPORT (SQ) ---
EXAM DESCRIPTION: CT ABD/PELVIS WITH IV ONLY COMPLETED DATE/TIME: 04/21/2019 1:53 pm REASON FOR STUDY: hematuria/sciatica/l hip arthropathy COMPARISON: 08/30/2018 TECHNIQUE: CT scan of the abdomen and pelvis performed using helical scanning technique with dynamic intravenous contrast injection. No oral contrast. Images reviewed with lung, soft tissue, and bone windows. Reconstructed coronal and sagittal MPR images reviewed. Delayed images for evaluation of the urinary system also acquired. All images stored on PACS. All CT scanners at this facility use dose modulation, iterative reconstruction, and/or weight based d osing when appropriate to reduce radiation dose to as low as reasonably achievable (ALARA). [facility]: Dose Right [facility]: CareDose [facility]: Dose Right [facility]: Teradose 4D [facility]: Antares Vision CONTRAST TYPE AND DOSE: contrast/concentration: Isovue 350.00 mg/ml; Total Contrast Delivered: 100.0 ml; Total Saline Delivered: 51.5 ml RENAL FUNCTION: None required. The patient is less than 50 years old. RADIATION DOSE: CT Rad equipment meets quality standard of care and radiation dose reduction techniq ues were employed. CTDIvol: 20.6 - 21.1 mGy. DLP: 2393 mGy-cm.. LIMITATIONS: None. FINDINGS: LOWER CHEST: No significant findings. No nodules or infiltrates. LIVER: Normal size. No masses. No dilated ducts. SPLEEN: Normal size. No focal lesions. PANCREAS: No masses. No significant calcifications. No adjacent inflammation or peripancreatic fluid collections. Pancreatic duct not dilated. GALLBLADDER: Surgically absent. ADRENAL GLANDS: No significant masses or asymmetry. RIGHT KIDNEY AND URETER: No solid masses. No significant calcifications. No hydronephrosis or hyd roureter. LEFT KIDNEY AND URETER: No solid masses. No significant calcifications. No hydronephrosis or hydr oureter. AORTA AND VESSELS: No aneurysm. No dissection. Renal arteries, SMA, celiac without stenosis. RETROPERITONEUM: No retroperitoneal adenopathy, hemorrhage or masses. BOWEL AND PERITONEAL CAVITY: Diverticulosis descending and sigmoid colon. No masses or inflammatory changes. No free fluid or peritoneal masses. APPENDIX: Normal. PELVIS: No mass. No free fluid. Normal bladder. ABDOMINAL WALL: No masses. No hernias. BONES: No significant or acute findings. OTHER: No other significant finding. IMPRESSION: No acute findings. Diverticulosis without evidence of diverticulitis. TECHNICAL DOCUMENTATION: JOB ID: [id number] Quality ID # [id number]: Final reports with documentation of one or more dose reduction techniques (e.g., Au tomated exposure control, adjustment of the mA and/or kV according to patient size, use of iterative reconstruction technique) 2010 [employer]- All Rights Reserved Reading location - IP/workstation name: [email or web address]
--- NOTE | 2019-04-21 15:02 | RADIOLOGY REPORT (SQ) ---
EXAM DESCRIPTION: HIP BILATERAL COMPLETED DATE/TIME: 04/21/2019 2:22 pm REASON FOR STUDY: hematuria/sciatica/l hip arthropathy COMPARISON: CT abdomen pelvis 04/21/2019 Bilateral hip films 04/17/2019 NUMBER OF VIEWS: Two views. TECHNIQUE: AP pelvis and additional frog-leg view of the right and left hip. LIMITATIONS: None. FINDINGS: MINERALIZATION: Normal. RIGHT HIP: Diffuse right hip joint space narrowing with bony sclerosis of articular surfaces and bony spurring. No fracture LEFT HIP: Diffuse left hip joint space narrowing and bony sclerosis of articular surfaces and bony sp urring. No fracture. PUBIS AND ISCHIUM: No fracture. PELVIS: No fracture. Bilateral SI joint sclerosis SACRUM: No fracture or dislocation. No worrisome bone lesions. LOWER LUMBAR SPINE: No fracture or dislocation. No worrisome bone lesions. No significant disc disea se. SOFT TISSUES: Residual IV contrast from CT exam the urinary bladder and nondilated right ureter OTHER: No other significant finding. IMPRESSION: Bilateral hip osteoarthritis with joint space narrowing and bony spurring. TECHNICAL DOCUMENTATION: JOB ID: [id number]- All Rights Reserved Reading location - IP/workstation name: [email or web address]
[2019-04-21] MEDS: KETOROLAC TROMETHAMINE INJ/PF 30 MG/1 ML SDV IV SCH ×3 (15:07→23:19)
[2019-04-21 15:11] LABS: APPEARANCE,URINE SLIGHTLY-CLOUDY; BILIRUBIN,URINE NEGATIVE (NEGATIVE); COLOR,URINE YELLOW; GLUCOSE, URINE NEGATIVE (NEGATIVE); KETONES,URINE NEGATIVE (NEGATIVE); LEUKOCYTE ESTERASE,URINE NEGATIVE (NEGATIVE); NITRITE,URINE NEGATIVE (NEGATIVE); PROTEIN,URINE NEGATIVE (NEGATIVE); URINE SPECIFIC GRAVITY 1.057; UROBILINOGEN,URINE NEGATIVE mg/dL (<2.0)
[2019-04-22] MEDS: MORPHINE SULFATE 10 MG/ML INJ IV PRN ×3 (03:47→12:25)
[2019-04-22] MEDS: KETOROLAC TROMETHAMINE INJ/PF 30 MG/1 ML SDV IV SCH ×2 (05:45→12:20)
[2019-04-22 12:31] VITALS: BP 111/89
--- NOTE | 2019-04-22 13:40 | RADIOLOGY REPORT (SQ) ---
EXAM DESCRIPTION: MRI LUMBAR SPINE WITHOUT COMPLETED DATE/TIME: 04/22/2019 10:28 am REASON FOR STUDY: lumbar radiculopathy COMPARISON: None. TECHNIQUE: Sagittal T2 weighted images of the lumbar spine. Patient unable to complete any addition al sequences. LIMITATIONS: See above. Motion artifact. FINDINGS: There is disc desiccation at multiple levels. Alignment is anatomic. Bulging disc at mul tiple levels. No evidence of disc herniation. Facet arthropathy lower lumbar spine. Cord signal is normal. No significant marrow abnormality identified. IMPRESSION: Technical limitations. Spondylosis and facet arthropathy. No evidence of high-grade sp inal stenosis. TECHNICAL DOCUMENTATION: JOB ID: [id number] [employer]- All Rights Reserved Reading location - IP/workstation name: [email or web address]
--- NOTE | 2019-04-22 16:22 | PDOC H&P ---
History of Present Illness Admission Date/PCP: 04/21/19 13:34 ELODIA HOLLAND MD History of Present Illness: ALEJANDRO CRUZ is a 49 year old Female she came to the office for evaluation of hematuria and severe back pain CAT scan of the abdomen and pelvis with contrast was obtained it was essentially negative for any acute pathology.MRI of the lumbar spine was also obtained, there was no evidence of high-grade spinal stenosis there was bulging disc at multiple levels, no evidence of disc herniation, there is disc desiccation at multiple levels, x-ray of both hips demonstrated bilateral hip osteoarthritis with joint space narrowing.She was treated with intravenous morphine and IV Toradol for pain control Past Medical History Cardiac Medical History: Reports: Hypertension Pulmonary Medical History: Reports: Asthma, Bronchitis, Pneumonia Neurological Medical History: Reports: Migraine GI Medical History: Reports: Diverticulitis, Gastroesophageal Reflux Disease Musculoskeltal Medical History: Reports: Arthritis - back Psychiatric Medical History: Reports: Bipolar Disorder, Depression, Post Traumatic Stress Disorder Infectious Medical History: Reports: Methicillin-Resistant Staph Aureus Past Surgical History Past Surgical History: Reports: Section - x 2, Cholecystectomy, Hysterectomy, Tubal Ligation Social History Smoking Status: Current Every Day Smoker Electronic Cigarette use?: No Frequency of Alcohol Use: None Hx Recreational Drug Use: No Hx Prescription Drug Abuse: No - Advance Directive Resuscitation Status: Full Code Family History Family History: Reviewed & Not Pertinent, Arthritis, CAD, CVA, DM, Hy perlipidemia, Hypertension, Malignancy, Thyroid Disfunction, Other - Kidney stones Parental Family History Reviewed: Yes Children Family History Reviewed: Yes Sibling(s) Family History Reviewed.: Yes Medication/Allergy Home Medications: Meloxicam [Mobic] 7.5 mg PO DAILY #90 tablet 04/22/19 Allergies/Adverse Reactions: hydromorphone HCl [From Dilaudid] Allergy (Mild, Verified 04/21/19 12:36) Facial edema and rash Sulfa (Sulfonamide Antibiotics) Allergy (Mild, Verified 04/21/19 12:36) erythromycin base [Erythromycin Base] Allergy (Unknown, Verified 04/21/19 12:36) cortisone [Cortisone] Allergy (Verified 04/21/19 12:36) Penicillins Allergy (Verified 04/21/19 12:36) Review of Systems Constitutional: ABSENT: chills, fever(s), headache(s), weight gain, weight loss Eyes: ABSENT: visual disturbances Ears: ABSENT: hearing changes Cardiovascular: ABSENT: chest pain, dyspnea on exertion, edema, orthropnea, palpitations Respiratory: ABSENT: cough, hemoptysis Gastrointestinal: ABSENT: abdominal pain, constipation, diarrhea, hematemesis, hematochezia, nausea, vomiting Genitourinary: PRESENT: hematuria. ABSENT: dysuria Musculoskeletal: PRESENT: back pain. ABSENT: joint swelling Integumentary: ABSENT: rash, wounds Neurological: ABSENT: abnormal gait, abnormal speech, confusion, dizziness, focal weakness, syncope Psychiatric: ABSENT: anxiety, depression, homidical ideation, suicidal ideation Endocrine: ABSENT: cold intolerance, heat intolerance, menstrual abnormalities, polydipsia, polyuria Hematologic/Lymphatic: ABSENT: easy bleeding, easy bruising, lymphadenopathy Physical Exam Vital Signs: Temp Pulse Resp BP Pulse Ox 97.4 F 63 16 111/89 H 99 04/22/19 14:45 04/22/19 14:45 04/22/19 14:45 04/22/19 14:45 04/22/19 14:45 Intake & Output 04/21/19 04/22/19 04/23/19 06:59 06:59 06:59 Intake Total 365 635 Balance 365 635 Weight 124.1 kg General appearance: PRESENT: no acute distress, well-developed, well-nourished Head exam: PRESENT: atraumatic, normocephalic Eye exam: PRESENT: conjunctiva pink, EOMI, PERRLA Ear exam: PRESENT: normal external ear exam Mouth exam: PRESENT: moist, tongue midline Neck exam: PRESENT: full ROM Respiratory exam: PRESENT: clear to auscultation keon Cardiovascular exam: PRESENT: RRR, +S1, +S2 Vascular exam: PRESENT: normal capillary refill GI/Abdominal exam: PRESENT: normal bowel sounds, soft Rectal exam: PRESENT: deferred Extremities exam: PRESENT: joint swelling, tenderness Neurological exam: PRESENT: alert, awake, oriented to person, oriented to place, oriented to time, oriented to situation, CN II-XII grossly intact Psychiatric exam: PRESENT: appropriate affect, normal mood Skin exam: PRESENT: dry, intact, warm Results Laboratory Results: 04/21/19 13:27 04/21/19 13:27 04/21/19 14:00 Clean Catch Midstream Urine Culture - Final Mixed Urogenital Pennie Impressions: Abdomen/Pelvis CT 04/21/19 00:00 IMPRESSION: No acute findings. Diverticulosis without evidence of diverticulitis. Hip X-Ray 04/21/19 00:00 IMPRESSION: Bilateral hip osteoarthritis with joint space narrowing and bony spurring. Lumbar Spine MRI 04/22/19 00:00 IMPRESSION: Technical limitations. Spondylosis and facet arthropathy. No evidence of high-grade spinal stenosis. Assessment & Plan - Diagnosis (1) Hematuria Qualifiers: Hematuria type: unspecified type Qualified Code(s): R31.9 - Hematuria, unspecified Is this a current diagnosis for this admission?: Yes Plan: Patient may need to have cystoscopy this could be arranged outpatient more so because she is a smoker (2) Radiculopathy, lumbar region Is this a current diagnosis for this admission?: Yes (3) Bilateral primary osteoarthritis of hip Is this a current diagnosis for this admission?: Yes (4) Degenerative arthritis of lumbar spine Qualifiers: Spinal osteoarthritis complication: without myelopathy or radiculopathy Qualified Code(s): M47.816 - Spondylosis without myelopathy or radiculopathy, lumbar region Is this a current diagnosis for this admission?: Yes
--- NOTE | 2019-04-22 16:30 | PDOC DISCHARGE SUMMARY ---
Impression - Admit/DC Date/PCP Admission Date/Primary Care Provider: 04/21/19 13:34 ELODIA HOLLAND MD Discharge Date: 04/22/19 - Discharge Diagnosis (1) Hematuria Is this a current diagnosis for this admission?: Yes (2) Radiculopathy, lumbar region Is this a current diagnosis for this admission?: Yes (3) Bilateral primary osteoarthritis of hip Is this a current diagnosis for this admission?: Yes (4) Degenerative arthritis of lumbar spine Is this a current diagnosis for this admission?: Yes - Additional Information Resuscitation Status: Full Code Discharge Diet: As Tolerated Discharge Activity: Activity As Tolerated Referrals: ELODIA HOLLAND MD [Primary Care Provider] - 04/27/19 3:00 pm Prescriptions: Meloxicam [Mobic] 7.5 mg PO DAILY #90 tablet Home Medications: Meloxicam [Mobic] 7.5 mg PO DAILY #90 tablet 04/22/19 History of Present Illiness History of Present Illness: ALEJANDRO CRUZ is a 49 year old Female she came to the office for evaluation of hematuria and severe back pain CAT scan of the abdomen and pelvis with contrast was obtained it was essentially negative for any acute pathology.MRI of the lumbar spine was also obtained, there was no evidence of high-grade spinal stenosis there was bulging disc at multiple levels, no evidence of disc herniation, there is disc desiccation at multiple levels, x-ray of both hips demonstrated bilateral hip osteoarthritis with joint space narrowing.She was treated with intravenous morphine and IV Toradol for pain control Hospital Course Hospital Course: Patient was admitted for the management of hematuria, lumbar radiculopathy, she was treated with IV Dilaudid and Toradol for pain control, CT scan of the abdomen and pelvis with contrast was negative.Patient will need outpatient cystoscopy Physical Exam Vital Signs: Temp Pulse Resp BP Pulse Ox 97.4 F 63 16 111/89 H 99 04/22/19 14:45 04/22/19 14:45 04/22/19 14:45 04/22/19 14:45 04/22/19 14:45 Intake & Output 04/21/19 04/22/19 04/23/19 06:59 06:59 06:59 Intake Total 365 635 Balance 365 635 Weight 124.1 kg General appearance: PRESENT: no acute distress Eye exam: PRESENT: PERRLA Respiratory exam: PRESENT: clear to auscultation keon Cardiovascular exam: PRESENT: +S1, +S2 GI/Abdominal exam: PRESENT: soft Neurological exam: PRESENT: alert, CN II-XII grossly intact Results Laboratory Results: WBC 8.5 10^3/uL (4.0-10.5) 04/21/19 13:27 RBC 4.68 10^6/uL (3.72-5.28) 04/21/19 13:27 Hgb 14.6 g/dL (12.0-15.5) 04/21/19 13:27 Hct 41.5 % (36.0-47.0) 04/21/19 13:27 MCV 89 fl (80-97) 04/21/19 13:27 MCH 31.3 pg (27.0-33.4) 04/21/19 13:27 MCHC 35.3 g/dL (32.0-36.0) 04/21/19 13:27 RDW 13.3 % (11.5-14.0) 04/21/19 13:27 Plt Count 306 10^3/uL (150-450) 04/21/19 13:27 Lymph % (Auto) 33.4 % (13-45) 04/21/19 13:27 [place] % (Auto) 7.8 % (3-13) 04/21/19 13:27 Eos % (Auto) 2.4 % (0-6) 04/21/19 13:27 Baso % (Auto) 1.0 % (0-2) 04/21/19 13:27 Absolute Neuts (auto) 4.7 10^3/uL (1.7-8.2) 04/21/19 13:27 Absolute Lymphs (auto) 2.8 10^3/uL (0.5-4.7) 04/21/19 13:27 Absolute Monos (auto) 0.7 10^3/uL (0.1-1.4) 04/21/19 13:27 Absolute Eos (auto) 0.2 10^3/uL (0.0-0.6) 04/21/19 13:27 Absolute Basos (auto) 0.1 10^3/uL (0.0-0.2) 04/21/19 13:27 Seg Neutrophils % 55.4 % (42-78) 04/21/19 13:27 Sodium 142.0 mmol/L (137-145) 04/21/19 13:27 Potassium 4.1 mmol/L (3.6-5.0) 04/21/19 13:27 Chloride 105 mmol/L (98-107) 04/21/19 13:27 Carbon Dioxide 25 mmol/L (22-30) 04/21/19 13:27 Anion Gap 12 (5-19) 04/21/19 13:27 BUN 12 mg/dL (7-20) 04/21/19 13:27 Creatinine 0.76 mg/dL (0.52-1.25) 04/21/19 13:27 Est GFR ( Amer) > 60 (>60) 04/21/19 13:27 Est GFR (MDRD) Non-Af > 60 (>60) 04/21/19 13:27 Glucose 98 mg/dL (75-110) 04/21/19 13:27 Calcium 9.8 mg/dL (8.4-10.2) 04/21/19 13:27 Total Bilirubin 0.4 mg/dL (0.2-1.3) 04/21/19 13:27 Direct Bilirubin 0.3 mg/dL (0.0-0.4) 04/21/19 13:27 Neonat Total Bilirubin Not Reportable 04/21/19 13:27 Neonat Direct Bilirubin Not Reportable 04/21/19 13:27 Neonat Indirect Bili Not Reportable 04/21/19 13:27 AST 21 U/L (14-36) 04/21/19 13:27 ALT 20 U/L (<35) 04/21/19 13:27 Alkaline Phosphatase 47 U/L (38-126) 04/21/19 13:27 Total Protein 7.9 g/dL (6.3-8.2) 04/21/19 13:27 Albumin 4.5 g/dL (3.5-5.0) 04/21/19 13:27 Urine Color YELLOW 04/21/19 14:00 Urine Appearance SLIGHTLY-CLOUDY 04/21/19 14:00 Urine pH 5.0 (5.0-9.0) 04/21/19 14:00 Ur Specific [place] 1.057 04/21/19 14:00 Urine Protein NEGATIVE mg/dL (NEGATIVE) 04/21/19 14:00 Urine Glucose (UA) NEGATIVE mg/dL (NEGATIVE) 04/21/19 14:00 Urine Ketones NEGATIVE mg/dL (NEGATIVE) 04/21/19 14:00 Urine Blood NEGATIVE (NEGATIVE) 04/21/19 14:00 Urine Nitrite NEGATIVE (NEGATIVE) 04/21/19 14:00 Urine Bilirubin NEGATIVE (NEGATIVE) 04/21/19 14:00 Urine Urobilinogen NEGATIVE mg/dL (<2.0) 04/21/19 14:00 Ur Leukocyte Esterase NEGATIVE (NEGATIVE) 04/21/19 14:00 Urine WBC (Auto) 1 /HPF 04/21/19 14:00 Urine RBC (Auto) 1 /HPF 04/21/19 14:00 Squamous Epi Cells Auto 17 /HPF 04/21/19 14:00 Urine Mucus (Auto) RARE /LPF 04/21/19 14:00 Urine Ascorbic Acid NEGATIVE (NEGATIVE) 04/21/19 14:00 Impressions: Abdomen/Pelvis CT 04/21/19 00:00 IMPRESSION: No acute findings. Diverticulosis without evidence of diverticulitis. Hip X-Ray 04/21/19 00:00 IMPRESSION: Bilateral hip osteoarthritis with joint space narrowing and bony spurring. Lumbar Spine MRI 04/22/19 00:00 IMPRESSION: Technical limitations. Spondylosis and facet arthropathy. No evidence of high-grade spinal stenosis. Stroke Is this a Stroke Patient?: No Acute Heart Failure - Is this a Heart Failure Patient?: No
== END 2019-04-22 14:59 | disposition home or self-care (01) ==
LOC: ER 11:40 → INTOOBSV 13:34 → EH 13:34 → 4S 18:33
PROVIDERS: ADMIT Internal Medicine; ATTEND Internal Medicine
DX: R31.9 Hematuria, unspecified (principal); M47.26 Other spondylosis with radiculopathy, lumbar region; M16.0 Bilateral primary osteoarthritis of hip; I10 Essential (primary) hypertension; K57.90 Diverticulosis of intestine, part unspecified, without perforation or abscess without bleeding; F17.210 Nicotine dependence, cigarettes, uncomplicated; Z86.14 Personal history of Methicillin resistant Staphylococcus aureus infection; Z79.1 Long term (current) use of non-steroidal anti-inflammatories (NSAID); Z98.51 Tubal ligation status; Z90.710 Acquired absence of both cervix and uterus; Z84.1 Family history of disorders of kidney and ureter; Z90.49 Acquired absence of other specified parts of digestive tract
CPT/HCPCS: 99285; 36415; 87086; 85025; 80076; 80048; 81001; 72148; 73522; 74177; G0378 ×3; J1885 ×2; J2270 ×2; J2060; J7030

== ENCOUNTER 2019-05-27 17:17 | Emergency (ER) | payer OTHER ==
--- NOTE | 2019-05-27 19:07 | ER Document Report ---
ED Medical Screen (RME) - General Chief Complaint: Jaw Pain Stated Complaint: JAW PAIN Time Seen by Provider: 05/27/19 18:59 Primary Care Provider: ELODIA HOLLAND MD [Primary Care Provider] - Follow up as needed Mode of Arrival: Ambulatory Information source: Patient Notes: 49-year-old female presented to ED for dental pain that started Saturday. She states the pain has increased swelling started on Saturday and has progressed since then. She states now she has a change in voice last night she had some difficulty swallowing but this time she is able to speak in full sentences but does have a change in her voice. She is alert oriented respirations regular nonlabored at this time. Patient does have significant swelling from left and right side of her neck. She does have a dental cavity to the left lower wisdom tooth and a couple teeth in front of it. I have greeted and performed a rapid initial assessment of this patient. A comprehensive ED assessment and evaluation of the patient, analysis of test results and completion of medical decision making process will be conducted by an additional ED providers. TRAVEL OUTSIDE OF THE [place] IN LAST 30 DAYS: No - Related Data Allergies/Adverse Reactions: hydromorphone HCl [From Dilaudid] Allergy (Mild, Verified 05/27/19 18:54) Facial edema and rash Sulfa (Sulfonamide Antibiotics) Allergy (Mild, Verified 05/27/19 18:54) erythromycin base [Erythromycin Base] Allergy (Unknown, Verified 05/27/19 18:54) cortisone [Cortisone] Allergy (Verified 05/27/19 18:54) Penicillins Allergy (Verified 05/27/19 18:54) Past Medical History - Past Medical History Cardiac Medical History: Reports: Hx Hypertension Pulmonary Medical History: Reports: Hx Asthma, Hx Bronchitis, Hx Pneumonia Neurological Medical History: Reports: Hx Migraine. Denies: Hx Parkinson's Disease Renal/ Medical History: Reports: Hx Kidney Stones, Hx Ovarian Cysts. Denies: Hx Peritoneal Dialysis GI Medical History: Reports: Hx Diverticulitis, Hx Gastroesophageal Reflux Disease, Hx Irritable Bowel Musculoskeltal Medical History: Reports Hx Arthritis - back, Reports Hx Musculoskeletal Trauma Skin Medical History: Reports Hx MRSA Psychiatric Medical History: Reports: Hx Anxiety, Hx Bipolar Disorder, Hx Depression, Hx Post Traumatic Stress Disorder Traumatic Medical History: Reports: Hx Fractures - hand Infectious Medical History: Reports: Hx MRSA Past Surgical History: Reports: Hx Abdominal Surgery, Hx Section - x 2, Hx Cholecystectomy, Hx Dilation and Curettage, Hx Gynecologic Surgery - D & C, Hx Hysterectomy, Hx Tubal Ligation. Denies: Hx Pacemaker - Immunizations Immunizations up to date: Yes Hx Diphtheria, Pertussis, Tetanus Vaccination: Yes - 2011 Physical Exam - Vital signs Vitals: Temp Pulse Resp BP Pulse Ox 99 F 99 16 130/83 H 95 05/27/19 17:41 05/27/19 17:41 05/27/19 17:41 05/27/19 17:41 05/27/19 17:41 Course - Vital Signs Vital signs: Temp Pulse Resp BP Pulse Ox 99 F 99 16 130/83 H 95 05/27/19 17:41 05/27/19 17:41 05/27/19 17:41 05/27/19 17:41 05/27/19 17:41 Doctor's Discharge - Discharge Referrals: ELODIA HOLLAND MD [Primary Care Provider] - Follow up as needed
[2019-05-27 19:52] LABS: ABSOLUTE BASOPHILS # (AUTO) 0.1 10^3/uL (0.0-0.2); ABSOLUTE EOSINOPHILS # (AUTO) 0.1 10^3/uL (0.0-0.6); ABSOLUTE MONOCYTES (AUTO) 0.7 10^3/uL (0.1-1.4); ABSOLUTE NEUT (AUTO) 6.1 10^3/uL (1.7-8.2); EOSINOPHILS % (AUTO) 1.3 % (0-6); HEMATOCRIT 43.5 % (36.0-47.0); HEMOGLOBIN 15.4 g/dL (12.0-15.5); LYMPHOCYTES % (AUTO) 30.3 % (13-45); MEAN CORPUSCULAR HEMOGLOBIN 31.2 pg (27.0-33.4); MEAN CORPUSCULAR HGB CONC 35.3 g/dL (32.0-36.0); MEAN CORPUSCULAR VOLUME 88 fl (80-97); MONOCYTES % (AUTO) 6.8 % (3-13); PLATELET COUNT 358 10^3/uL (150-450); RED BLOOD COUNT 4.92 10^6/uL (3.72-5.28); RED CELL DISTRIBUTION WIDTH 13.1 % (11.5-14.0); SEGMENTED NEUTROPHILS % (AUTO) 60.6 % (42-78); TOTAL CELLS COUNTED % (AUTO) 100 %
[2019-05-27 20:02] LABS: ALBUMIN 4.8 g/dL (3.5-5.0); ALKALINE PHOSPHATASE 54 U/L (38-126); ANION GAP 13 (5-19); ASPARTATE AMINO TRANSFERASE 18 U/L (14-36); BILIRUBIN,DIRECT 0.3 mg/dL (0.0-0.4); BILIRUBIN,TOTAL 0.7 mg/dL (0.2-1.3); BLOOD UREA NITROGEN 11 mg/dL (7-20); CALCIUM 9.6 mg/dL (8.4-10.2); CARBON DIOXIDE 24 mmol/L (22-30); CHLORIDE 103 mmol/L (98-107); GLUCOSE 97 mg/dL (75-110); POTASSIUM 4.2 mmol/L (3.6-5.0); TOTAL PROTEIN 8.7 g/dL (6.3-8.2)
--- NOTE | 2019-05-27 20:42 | RADIOLOGY REPORT (SQ) ---
EXAM DESCRIPTION: CT NECK WITH IV CONTRAST COMPLETED DATE/TME: 05/27/2019 19:08 CLINICAL HISTORY: 49 years Female Pain swelling neck jaw, change in voice COMPARISON: None. TECHNIQUE: Contiguous axial images obtained through the neck with IV contrast. Reformatted images obtained. This exam was performed according to our department optimization program which includes automated exposure control, adjustment of the mA and/or kv according to patient size and/or use of iterative reconstruction technique. FINDINGS: The thyroid and vocal cords appear unremarkable. Appears to be a small amount of fluid in the vallecula on the left. The epiglottis appears otherwise unremarkable. Enlargement of the tonsils bilaterally with mild impingement on the airway. No evidence of retropharyngeal or parapharyngeal fluid or fluid collection. There are enlarged submental, submandibular and jugulodigastric lymph nodes left greater than right with some adjacent stranding particularly in the submandibular region on the left. The parotid glands and submandibular glands appear unremarkable. No fluid or significant mucosal thickening in the visualized paranasal sinuses. IMPRESSION: Enlargement of the tonsils suggesting tonsillitis without evidence of pericardial abscess Enlarged cervical adenopathy particularly on the left likely reactive in nature Small amount of fluid in the vallecula on the left without enlargement of the epiglottis
[2019-05-27 21:00] VITALS: BP 130/67
[2019-05-27] MEDS ORDERED: HYDROCODONE/ACETAMINOPHEN 5-325 MG (6 TAB/ER DISP) PO PRN (21:29)
[2019-05-27] MEDS ORDERED: CLINDAMYCIN HCL 150 MG CAPSULE PO ONE (21:31)
--- NOTE | 2019-05-27 21:36 | ER Document Report ---
ED General - General Chief Complaint: Jaw Pain Stated Complaint: JAW PAIN Time Seen by Provider: 05/27/19 18:59 Primary Care Provider: ELODIA HOLLAND MD [Primary Care Provider] - Follow up as needed Mode of Arrival: Ambulatory Information source: Patient, Relative Notes: Patient is a 49-year-old female presenting to the emergency department chief complaint of throat and jaw pain. Patient states that she has had a sore throat for several days. Patient reports subjective fever at home but no actual temperature. Patient denies travel history trauma history denies any chest pain no nausea vomiting or diarrhea. Patient does report positive tobacco abuse. TRAVEL OUTSIDE OF THE [place] IN LAST 30 DAYS: No - HPI Onset: Yesterday Onset/Duration: Gradual, Worse Quality of pain: Pressure, Stabbing Severity: Moderate Pain Level: 3 Associated symptoms: Fever, Sore throat. denies: Diarrhea, Nausea, Vomiting Exacerbated by: Other - talking Relieved by: Denies Similar symptoms previously: No Recently seen / treated by doctor: No - Related Data Allergies/Adverse Reactions: hydromorphone HCl [From Dilaudid] Allergy (Mild, Verified 05/27/19 18:54) Facial edema and rash Sulfa (Sulfonamide Antibiotics) Allergy (Mild, Verified 05/27/19 18:54) erythromycin base [Erythromycin Base] Allergy (Unknown, Verified 05/27/19 18:54) cortisone [Cortisone] Allergy (Verified 05/27/19 18:54) Penicillins Allergy (Verified 05/27/19 18:54) Home Medications: arthritis Past Medical History - General Information source: Patient, Relative - Social History Smoking Status: Current Every Day Smoker Cigarette use (# per day): Yes Chew tobacco use (# tins/day): No Smoking Education Provided: Yes Frequency of alcohol use: None Drug Abuse: None Lives with: Family Family History: Reviewed & Not Pertinent, Arthritis, CAD, CVA, DM, Hyp erlipidemia, Hypertension, Malignancy, Thyroid Disfunction, Other - Kidney stones Patient has suicidal ideation: No Patient has homicidal ideation: No - Past Medical History Cardiac Medical History: Reports: Hx Hypertension Pulmonary Medical History: Reports: Hx Asthma, Hx Bronchitis, Hx Pneumonia Neurological Medical History: Reports: Hx Migraine. Denies: Hx Parkinson's Disease Renal/ Medical History: Reports: Hx Kidney Stones, Hx Ovarian Cysts. Denies: Hx Peritoneal Dialysis GI Medical History: Reports: Hx Diverticulitis, Hx Gastroesophageal Reflux Disease, Hx Irritable Bowel Musculoskeletal Medical History: Reports Hx Arthritis - back, Reports Hx Musculoskeletal Trauma Skin Medical History: Reports Hx MRSA Psychiatric Medical History: Reports: Hx Anxiety, Hx Bipolar Disorder, Hx Depression, Hx Post Traumatic Stress Disorder Traumatic Medical History: Reports: Hx Fractures - hand Infectious Medical History: Reports: Hx MRSA Past Surgical History: Reports: Hx Abdominal Surgery, Hx Section - x 2, Hx Cholecystectomy, Hx Dilation and Curettage, Hx Gynecologic Surgery - D & C, Hx Hysterectomy, Hx Tubal Ligation. Denies: Hx Pacemaker - Immunizations Immunizations up to date: Yes Hx Diphtheria, Pertussis, Tetanus Vaccination: Yes - 2011 Hx Pneumococcal Vaccination: 11/10/11 Review of Systems - Review of Systems Constitutional: See HPI EENT: See HPI Cardiovascular: No symptoms reported Respiratory: No symptoms reported Gastrointestinal: No symptoms reported Genitourinary: No symptoms reported Female Genitourinary: No symptoms reported Musculoskeletal: No symptoms reported Skin: No symptoms reported Hematologic/Lymphatic: No symptoms reported Neurological/Psychological: No symptoms reported -: Yes All other systems reviewed and negative Physical Exam - Vital signs Vitals: Temp Pulse Resp BP Pulse Ox 99 F 99 16 130/83 H 95 05/27/19 17:41 05/27/19 17:41 05/27/19 17:41 05/27/19 17:41 05/27/19 17:41 - Notes Notes: PHYSICAL EXAMINATION: GENERAL: Patient is a 49-year-old female in obvious discomfort secondary to throat pain. HEAD: Atraumatic, normocephalic. EYES: Pupils equal round and reactive to light, extraocular movements intact, sclera anicteric, conjunctiva are normal. ENT: nares patent, poor dentition worse to the posterior teeth, tonsils are swollen and erythematous left greater than right and positive exudate to the left tonsillar pillar NECK: Normal range of motion, supple with obvious bilateral anterior cervical lymphadenopathy, no appreciable JVD LUNGS: Lungs clear to auscultation bilaterally and equal. No wheezes rales or rhonchi. HEART: Slightly tachycardic rate and rhythm without murmurs ABDOMEN: Soft, nontender, normal bowel sounds. No guarding, no rebound. No masses appreciated. EXTREMITIES: Active full range of motion, no pitting or edema. No cyanosis. 2+ pulses x4 NEUROLOGICAL: No focal neurological deficits. Moves all extremities spontaneously and on command. SKIN: Warm, Dry, and intact. Normal turgor, no rashes or lesions noted. Course - Re-evaluation Re-evalutation: 05/28/19 00:11 I discussed the laboratory and radiologic results with the patient she will be subjectively treated for strep pharyngitis. There is no signs of peritonsillar abscess. Patient is given initial dose of clindamycin in the emergency department and a prescription for same patient is given a short course of [place] for pain management. Patient is instructed to return to the emergency department for worsening symptoms otherwise follow-up with her primary care provider in the next couple of days. Patient is stable at time of discharge. 05/28/19 00:12 - Vital Signs Vital signs: Temp Pulse Resp BP Pulse Ox 99.0 F 94 20 130/67 H 97 05/27/19 20:50 05/27/19 20:50 05/27/19 20:50 05/27/19 20:50 05/27/19 20:50 - Laboratory Result Diagrams: 05/27/19 19:36 05/27/19 19:36 Laboratory results interpreted by me: 05/27/19 19:36 Total Protein 8.7 H - Diagnostic Test Radiology reviewed: Reports reviewed Discharge - Discharge Clinical Impression: Lymphadenopathy Pharyngitis Qualifiers: Pharyngitis/tonsillitis etiology: unspecified etiology Qualified Code(s): J02.9 - Acute pharyngitis, unspecified Condition: Stable Disposition: HOME, SELF-CARE Additional Instructions: Strep Throat Your sore throat is due to the streptococcus germ (strep throat). Strep throat usually makes you feel quite ill with fever and aches, headache, swollen sore throat, and tender bumps under the angles of the jaw. Strep throat requires antibiotic treatment. Although the sore throat may go away by itself, complications such as rheumatic fever, kidney disease, or throat abscess can occur. We usually prescribe antibiotics by mouth. Be sure to take the medicine until it's gone. If you stop early, the strep may come back. If you are vomiting, are severely ill, or can't remember to take pills, we can give you an antibiotic shot. Take acetaminophen or ibuprofen for pain and fever. Sip frequent clear liquids, or use popsicles or ice chips. Anesthetic sprays or lozenges may help. Make sure the air in the room is not too dry. Avoid using decongestants or antihistamines. Call the doctor if there is no improvement in three days, or if you have difficulty breathing, increasing throat pain, high fever, rash, or frequent vomiting. Prescriptions: Clindamycin HCl [Cleocin 150 mg Capsule] 150 mg PO Q6 #40 capsule Referrals: ELODIA HOLLAND MD [Primary Care Provider] - Follow up as needed
== END 2019-05-27 21:45 | disposition home or self-care (01) ==
LOC: ER 17:17
DX: J02.9 Acute pharyngitis, unspecified (principal); R59.1 Generalized enlarged lymph nodes; R50.9 Fever, unspecified; R68.84 Jaw pain; F17.210 Nicotine dependence, cigarettes, uncomplicated; Z88.0 Allergy status to penicillin; I10 Essential (primary) hypertension; Z86.14 Personal history of Methicillin resistant Staphylococcus aureus infection; Z90.49 Acquired absence of other specified parts of digestive tract; Z90.710 Acquired absence of both cervix and uterus
CPT/HCPCS: 36415; 70491; 80053; 82962; 85025; 99284

== ENCOUNTER 2019-10-01 17:39 | Emergency (ER) | payer SELFPAY ==
--- NOTE | 2019-10-01 17:58 | ER Document Report ---
ED Medical Screen (RME) - General Chief Complaint: Abdominal Pain Stated Complaint: ABDOMINAL PAIN Time Seen by Provider: 10/01/19 17:48 Primary Care Provider: ELODIA HOLLAND MD [Primary Care Provider] - Follow up as needed Notes: HPI: 49-year-old female presenting to the emergency department for evaluation of multiple complaints. Patient has had increasing right flank pain with hematuria and rectal bleeding with clots over the last 2 to 3 days. She has had nausea no vomiting no fever. History of diverticulitis or diverticulosis in the past. Patient also complaining about slight cough but she is a daily smoker. She reports swelling of the right medial clavicle over the last 3 days. No difficulty swallowing PHYSICAL EXAMINATION: Mild tenderness through the right lateral abdomen on palpation, difficult to examine secondary to body habitus and positioning in triage. Lung sounds are decreased bilateral bases. There is soft tissue swelling over the medial head of the right clavicle with tenderness on palpation I have greeted and performed a rapid initial assessment of this patient. A comprehensive ED assessment and evaluation of the patient, analysis of test results and completion of medical decision making process will be conducted by an additional ED providers. TRAVEL OUTSIDE OF THE [place] IN LAST 30 DAYS: No - Related Data Allergies/Adverse Reactions: hydromorphone HCl [From Dilaudid] Allergy (Mild, Verified 10/01/19 17:48) Facial edema and rash Sulfa (Sulfonamide Antibiotics) Allergy (Mild, Verified 10/01/19 17:48) erythromycin base [Erythromycin Base] Allergy (Unknown, Verified 10/01/19 17:48) cortisone [Cortisone] Allergy (Verified 10/01/19 17:48) Penicillins Allergy (Verified 10/01/19 17:48) Home Medications: tylenol. ibuprofen Past Medical History - Social History Chew tobacco use (# tins/day): No Frequency of alcohol use: Rare Drug Abuse: None - Past Medical History Cardiac Medical History: Reports: Hx Hypertension Pulmonary Medical History: Reports: Hx Asthma, Hx Bronchitis, Hx Pneumonia Neurological Medical History: Reports: Hx Migraine. Denies: Hx Parkinson's Disease Renal/ Medical History: Reports: Hx Kidney Stones, Hx Ovarian Cysts. Denies: Hx Peritoneal Dialysis GI Medical History: Reports: Hx Diverticulitis, Hx Gastroesophageal Reflux Disease, Hx Irritable Bowel Musculoskeltal Medical History: Reports Hx Arthritis - back, Reports Hx Musculoskeletal Trauma Skin Medical History: Reports Hx MRSA Psychiatric Medical History: Reports: Hx Anxiety, Hx Bipolar Disorder, Hx Depression, Hx Post Traumatic Stress Disorder Traumatic Medical History: Reports: Hx Fractures - hand Infectious Medical History: Reports: Hx MRSA Past Surgical History: Reports: Hx Abdominal Surgery, Hx Section - x 2, Hx Cholecystectomy, Hx Dilation and Curettage, Hx Gynecologic Surgery - D & C, Hx Hysterectomy, Hx Tubal Ligation. Denies: Hx Pacemaker - Immunizations Immunizations up to date: Yes Hx Diphtheria, Pertussis, Tetanus Vaccination: Yes - 2011 Physical Exam - Vital signs Vitals: Temp Pulse Resp BP Pulse Ox 98.3 F 105 H 19 137/80 H 98 10/01/19 17:43 10/01/19 17:43 10/01/19 17:43 10/01/19 17:43 10/01/19 17:43 Course - Vital Signs Vital signs: Temp Pulse Resp BP Pulse Ox 98.3 F 105 H 19 137/80 H 98 10/01/19 17:48 10/01/19 17:43 10/01/19 17:43 10/01/19 17:43 10/01/19 17:43 Doctor's Discharge - Discharge Referrals: ELODIA HOLLAND MD [Primary Care Provider] - Follow up as needed
--- NOTE | 2019-10-01 18:17 | RADIOLOGY REPORT (SQ) ---
EXAM DESCRIPTION: CHEST 2 VIEWS IMAGES COMPLETED DATE/TIME: 10/01/2019 6:06 pm REASON FOR STUDY: right medial clavicle lump/smoker COMPARISON: 07/03/2018 EXAM PARAMETERS: NUMBER OF VIEWS: two views TECHNIQUE: Digital Frontal and Lateral radiographic views of the chest acquired. RADIATION DOSE: NA LIMITATIONS: none FINDINGS: LUNGS AND PLEURA: No opacities, masses or pneumothorax. No pleural effusion. MEDIASTINUM AND HILAR STRUCTURES: No masses or contour abnormalities. HEART AND VASCULAR STRUCTURES: Heart normal size. No evidence for failure. BONES: No acute findings. HARDWARE: None in the chest. OTHER: No other significant finding. IMPRESSION: NO ACUTE RADIOGRAPHIC FINDING IN THE CHEST. TECHNICAL DOCUMENTATION: JOB ID: [id number] 2010 [employer]- All Rights Reserved Reading location - IP/workstation name: [email or web address]
[2019-10-01 18:45] LABS: ABSOLUTE BASOPHILS # (AUTO) 0.1 10^3/uL (0.0-0.2); ABSOLUTE EOSINOPHILS # (AUTO) 0.2 10^3/uL (0.0-0.6); ABSOLUTE LYMPHOCYTES (AUTO) 3.9 10^3/uL (0.5-4.7); ABSOLUTE MONOCYTES (AUTO) 0.7 10^3/uL (0.1-1.4); ABSOLUTE NEUT (AUTO) 5.6 10^3/uL (1.7-8.2); BASOPHILS % (AUTO) 0.9 % (0-2); EOSINOPHILS % (AUTO) 2.3 % (0-6); HEMATOCRIT 44.7 % (36.0-47.0); HEMOGLOBIN 15.6 g/dL (12.0-15.5); LYMPHOCYTES % (AUTO) 36.7 % (13-45); MEAN CORPUSCULAR HEMOGLOBIN 31.3 pg (27.0-33.4); MEAN CORPUSCULAR VOLUME 90 fl (80-97); MONOCYTES % (AUTO) 6.9 % (3-13); PLATELET COUNT 369 10^3/uL (150-450); RED BLOOD COUNT 4.99 10^6/uL (3.72-5.28); RED CELL DISTRIBUTION WIDTH 13.2 % (11.5-14.0); SEGMENTED NEUTROPHILS % (AUTO) 53.2 % (42-78); TOTAL CELLS COUNTED % (AUTO) 100 %; WHITE BLOOD COUNT 10.6 10^3/uL (4.0-10.5)
[2019-10-01 18:55] LABS: APPEARANCE,URINE CLEAR; BILIRUBIN,URINE NEGATIVE (NEGATIVE); COLOR,URINE YELLOW; GLUCOSE, URINE NEGATIVE (NEGATIVE); KETONES,URINE NEGATIVE (NEGATIVE); LEUKOCYTE ESTERASE,URINE NEGATIVE (NEGATIVE); NITRITE,URINE NEGATIVE (NEGATIVE); PROTEIN,URINE NEGATIVE (NEGATIVE); UROBILINOGEN,URINE NEGATIVE mg/dL (<2.0)
[2019-10-01] MEDS ORDERED: FAMOTIDINE INJ/PF 20 MG/2 ML SDV IV ONE ×2 (18:56→19:00)
[2019-10-01] MEDS ORDERED: DIPHENHYDRAMINE HCL 50 MG/ML VIAL ONE (18:56)
[2019-10-01 18:59] LABS: ALBUMIN 4.8 g/dL (3.5-5.0); ALKALINE PHOSPHATASE 57 U/L (38-126); ANION GAP 9 (5-19); ASPARTATE AMINO TRANSFERASE 22 U/L (14-36); BILIRUBIN,TOTAL 0.3 mg/dL (0.2-1.3); BLOOD UREA NITROGEN 13 mg/dL (7-20); CALCIUM 10.1 mg/dL (8.4-10.2); CARBON DIOXIDE 21 mmol/L (22-30); CHLORIDE 108 mmol/L (98-107); GLUCOSE 92 mg/dL (75-110); POTASSIUM 4.2 mmol/L (3.6-5.0); TOTAL PROTEIN 8.6 g/dL (6.3-8.2)
[2019-10-01] MEDS ORDERED: DIPHENHYDRAMINE HCL 50 MG/ML VIAL IV ONE (18:59)
--- NOTE | 2019-10-01 19:39 | RADIOLOGY REPORT (SQ) ---
EXAM DESCRIPTION: CT ABD/PELVIS WITH IV ONLY IMAGES COMPLETED DATE/TIME: 10/01/2019 7:06 pm REASON FOR STUDY: right flank pain diverticulitis hx COMPARISON: 04/21/2019 TECHNIQUE: CT scan of the abdomen and pelvis performed using helical scanning technique with dynamic intravenous contrast injection. No oral contrast. Images reviewed with lung, soft tissue, and bone windows. Reconstructed coronal and sagittal MPR images reviewed. Delayed images for evaluation of the urinary system also acquired. All images stored on PACS. All CT scanners at this facility use dose modulation, iterative reconstruction, and/or weight based d osing when appropriate to reduce radiation dose to as low as reasonably achievable (ALARA). [facility]: Dose Right [facility]: CareDose [facility]: Dose Right [facility]: Teradose 4D [facility]: XDC CONTRAST TYPE AND DOSE: contrast/concentration: Isovue 350.00 mmol/ml; Total Contrast Delivered: 100 .0 ml; Total Saline Delivered: 72.0 ml RENAL FUNCTION: None required. The patient is less than 50 years old. RADIATION DOSE: CT Rad equipment meets quality standard of care and radiation dose reduction techniq ues were employed. CTDIvol: 18.4 - 20.8 mGy. DLP: 2239 mGy-cm.. LIMITATIONS: None. FINDINGS: LOWER CHEST: No significant findings. No nodules or infiltrates. LIVER: Normal size. No masses. No dilated ducts. SPLEEN: Normal size. No focal lesions. PANCREAS: No masses. No significant calcifications. No adjacent inflammation or peripancreatic fluid collections. Pancreatic duct not dilated. GALLBLADDER: Surgically absent. ADRENAL GLANDS: No significant masses or asymmetry. RIGHT KIDNEY AND URETER: No solid masses. No significant calcifications. No hydronephrosis or hyd roureter. LEFT KIDNEY AND URETER: No solid masses. No significant calcifications. No hydronephrosis or hydr oureter. AORTA AND VESSELS: No aneurysm. No dissection. Renal arteries, SMA, celiac without stenosis. RETROPERITONEUM: No retroperitoneal adenopathy, hemorrhage or masses. BOWEL AND PERITONEAL CAVITY: Mild sigmoid diverticulosis with no acute inflammation. APPENDIX: Normal. PELVIS: No mass. No free fluid. Normal bladder. ABDOMINAL WALL: No masses. No hernias. BONES: No significant or acute findings. OTHER: No other significant finding. IMPRESSION: Mild sigmoid diverticulosis with no acute inflammation. TECHNICAL DOCUMENTATION: JOB ID: [id number] Quality ID # [id number]: Final reports with documentation of one or more dose reduction techniques (e.g., Au tomated exposure control, adjustment of the mA and/or kV according to patient size, use of iterative reconstruction technique) 2010 [employer]- All Rights Reserved Reading location - IP/workstation name: [email or web address]
[2019-10-01] MEDS ORDERED: HYDROCODONE/ACETAMINOPHEN 5-325 MG TABLET PO ONE (20:03)
--- NOTE | 2019-10-01 20:03 | ER Document Report ---
ED GI/ - General Chief Complaint: Abdominal Pain Stated Complaint: ABDOMINAL PAIN Time Seen by Provider: 10/01/19 17:48 Primary Care Provider: ELODIA HOLLAND MD [Primary Care Provider] - Follow up as needed TRAVEL OUTSIDE OF THE [place] IN LAST 30 DAYS: No - HPI Patient complains to provider of: Abdominal pain, Other - This a 49-year-old female presents to the emergency room today with multiple complaints first being right lower abdominal pain she stated that she had some blood from her rectum from time to time and felt as though she might have a urinary tract infection. Does have a taste degree of diverticulitis - Related Data Allergies/Adverse Reactions: hydromorphone HCl [From Dilaudid] Allergy (Mild, Verified 10/01/19 17:48) Facial edema and rash Sulfa (Sulfonamide Antibiotics) Allergy (Mild, Verified 10/01/19 17:48) erythromycin base [Erythromycin Base] Allergy (Unknown, Verified 10/01/19 17:48) cortisone [Cortisone] Allergy (Verified 10/01/19 17:48) Iodinated Contrast Media Allergy (Verified 10/01/19 19:02) Penicillins Allergy (Verified 10/01/19 17:48) prednisone Allergy (Verified 10/01/19 19:02) Home Medications: tylenol. ibuprofen Past Medical History - General Information source: Patient - Social History Smoking Status: Current Every Day Smoker Chew tobacco use (# tins/day): No Frequency of alcohol use: Rare Drug Abuse: None Family History: Reviewed & Not Pertinent, Arthritis, CAD, CVA, DM, Hyperlipidemia, Hypertension, Malignancy, Thyroid Disfunction, Other - Kidney stones Patient has homicidal ideation: No - Past Medical History Cardiac Medical History: Reports: Hx Hypertension Pulmonary Medical History: Reports: Hx Asthma, Hx Bronchitis, Hx Pneumonia Neurological Medical History: Reports: Hx Migraine. Denies: Hx Parkinson's Disease Renal/ Medical History: Reports: Hx Kidney Stones, Hx Ovarian Cysts. Denies: Hx Peritoneal Dialysis GI Medical History: Reports: Hx Diverticulitis, Hx Gastroesophageal Reflux Disease, Hx Irritable Bowel Musculoskeletal Medical History: Reports Hx Arthritis - back, Reports Hx Musculoskeletal Trauma Skin Medical History: Reports Hx MRSA Psychiatric Medical History: Reports: Hx Anxiety, Hx Bipolar Disorder, Hx Depression, Hx Post Traumatic Stress Disorder Traumatic Medical History: Reports: Hx Fractures - hand Infectious Medical History: Reports: Hx MRSA Past Surgical History: Reports: Hx Abdominal Surgery, Hx Section - x 2, Hx Cholecystectomy, Hx Dilation and Curettage, Hx Gynecologic Surgery - D & C, Hx Hysterectomy, Hx Tubal Ligation. Denies: Hx Pacemaker - Immunizations Immunizations up to date: Yes Hx Diphtheria, Pertussis, Tetanus Vaccination: Yes - 2011 Hx Pneumococcal Vaccination: 11/10/11 Review of Systems - Review of Systems Constitutional: No symptoms reported EENT: No symptoms reported Cardiovascular: No symptoms reported Respiratory: No symptoms reported Gastrointestinal: No symptoms reported Genitourinary: No symptoms reported Female Genitourinary: No symptoms reported Musculoskeletal: No symptoms reported Skin: No symptoms reported Hematologic/Lymphatic: No symptoms reported Neurological/Psychological: No symptoms reported Physical Exam - Vital signs Vitals: Temp Pulse Resp BP Pulse Ox 98.3 F 105 H 19 137/80 H 98 10/01/19 17:43 10/01/19 17:43 10/01/19 17:43 10/01/19 17:43 10/01/19 17:43 Interpretation: Normal - General General appearance: Appears well, Alert - HEENT Head: Normocephalic, Atraumatic Eyes: Normal Pupils: PERRL - Respiratory Respiratory status: No respiratory distress Chest status: Nontender Breath sounds: Normal Chest palpation: Normal - Cardiovascular Rhythm: Regular Heart sounds: Normal auscultation Murmur: No - Abdominal Inspection: Normal Distension: No distension Bowel sounds: Normal Tenderness: Nontender Organomegaly: No organomegaly - Rectal Tenderness: Yes Stool: Heme positive Hemorrhoids: Internal, External - Back Back: Normal, Nontender - Extremities General upper extremity: Normal inspection, Nontender, Normal color, Normal ROM, Normal temperature General lower extremity: Normal inspection, Nontender, Normal color, Normal ROM, Normal temperature, Normal weight bearing. No: Louie's sign - Neurological Neuro grossly intact: Yes Cognition: Normal Orientation: AAOx4 [place] Coma Scale Eye Opening: Spontaneous [place] Coma Scale Verbal: Oriented [place] Coma Scale Motor: Obeys Commands [place] Coma Scale Total: 15 Speech: Normal Motor strength normal: LUE, RUE, LLE, RLE Sensory: Normal - Psychological Associated symptoms: Normal affect, Normal mood - Skin Skin Temperature: Warm Skin Moisture: Dry Skin Color: Normal Course - Vital Signs Vital signs: Temp Pulse Resp BP Pulse Ox 98.3 F 105 H 19 137/80 H 98 10/01/19 17:48 10/01/19 17:43 10/01/19 17:43 10/01/19 17:43 10/01/19 17:43 - Laboratory Result Diagrams: 10/01/19 18:21 10/01/19 18:21 Laboratory results interpreted by me: 10/01/19 10/01/19 18:21 18:21 WBC 10.6 H Hgb 15.6 H Chloride 108 H Carbon Dioxide 21 L Total Protein 8.6 H 10/01/19 20:01 Labs- All tests 24 hr 10/01/19 10/01/19 10/01/19 18:21 18:21 18:21 WBC 10.6 H RBC 4.99 Hgb 15.6 H Hct 44.7 MCV 90 MCH 31.3 MCHC 35.0 RDW 13.2 Plt Count 369 Lymph % (Auto) 36.7 [place] % (Auto) 6.9 Eos % (Auto) 2.3 Baso % (Auto) 0.9 Absolute Neuts (auto) 5.6 Absolute Lymphs (auto) 3.9 Absolute Monos (auto) 0.7 Absolute Eos (auto) 0.2 Absolute Basos (auto) 0.1 Seg Neutrophils % 53.2 Sodium 137.6 Potassium 4.2 Chloride 108 H Carbon Dioxide 21 L Anion Gap 9 BUN 13 Creatinine 0.90 Est GFR ( Amer) > 60 Est GFR (MDRD) Non-Af > 60 Glucose 92 Calcium 10.1 Total Bilirubin 0.3 Direct Bilirubin 0.0 Neonat Total Bilirubin Not Reportable Neonat Direct Bilirubin Not Reportable Neonat Indirect Bili Not Reportable AST 22 ALT 20 Alkaline Phosphatase 57 Total Protein 8.6 H Albumin 4.8 Lipase 101.9 Urine Color YELLOW Urine Appearance CLEAR Urine pH 5.0 Ur Specific [place] 1.010 Urine Protein NEGATIVE Urine Glucose (UA) NEGATIVE Urine Ketones NEGATIVE Urine Blood NEGATIVE Urine Nitrite NEGATIVE Urine Bilirubin NEGATIVE Urine Urobilinogen NEGATIVE Ur Leukocyte Esterase NEGATIVE Urine WBC (Auto) 1 Urine RBC (Auto) 0 U Hyaline Cast (Auto) 4 Urine Bacteria (Auto) TRACE Squamous Epi Cells Auto <1 Urine Mucus (Auto) OCC Urine Ascorbic Acid NEGATIVE POC Stool Occult Blood 10/01/19 19:51 WBC RBC Hgb Hct MCV MCH MCHC RDW Plt Count Lymph % (Auto) [place] % (Auto) Eos % (Auto) Baso % (Auto) Absolute Neuts (auto) Absolute Lymphs (auto) Absolute Monos (auto) Absolute Eos (auto) Absolute Basos (auto) Seg Neutrophils % Sodium Potassium Chloride Carbon Dioxide Anion Gap BUN Creatinine Est GFR ( Amer) Est GFR (MDRD) Non-Af Glucose Calcium Total Bilirubin Direct Bilirubin Neonat Total Bilirubin Neonat Direct Bilirubin Neonat Indirect Bili AST ALT Alkaline Phosphatase Total Protein Albumin Lipase Urine Color Urine Appearance Urine pH Ur Specific [place] Urine Protein Urine Glucose (UA) Urine Ketones Urine Blood Urine Nitrite Urine Bilirubin Urine Urobilinogen Ur Leukocyte Esterase Urine WBC (Auto) Urine RBC (Auto) U Hyaline Cast (Auto) Urine Bacteria (Auto) Squamous Epi Cells Auto Urine Mucus (Auto) Urine Ascorbic Acid POC Stool Occult Blood NEGATIVE - Diagnostic Test Radiology results interpreted by me: 10/01/19 20:00 Chest X-Ray 10/01/19 17:55 IMPRESSION: NO ACUTE RADIOGRAPHIC FINDING IN THE CHEST. Abdomen/Pelvis CT 10/01/19 17:56 IMPRESSION: Mild sigmoid diverticulosis with no acute inflammation. Discharge - Discharge Clinical Impression: Hemorrhoid Qualifiers: Hemorrhoid type: unspecified Qualified Code(s): K64.9 - Unspecified hemorrhoids Condition: Fair Disposition: HOME, SELF-CARE Prescriptions: Hydrocortisone Acetate [Anusol Hc 25 mg Supp.rect] 1 supp.rect DC BID #[id number] supp.rect Referrals: ELODIA HOLLAND MD [Primary Care Provider] - Follow up as needed
[2019-10-01 20:28] VITALS: BP 139/93
== END 2019-10-01 20:37 | disposition home or self-care (01) ==
LOC: ER 17:39
DX: K64.9 Unspecified hemorrhoids (principal); R10.31 Right lower quadrant pain; Z88.2 Allergy status to sulfonamides; Z88.8 Allergy status to other drugs, medicaments and biological substances; Z88.0 Allergy status to penicillin; F17.200 Nicotine dependence, unspecified, uncomplicated; I10 Essential (primary) hypertension; J45.909 Unspecified asthma, uncomplicated
CPT/HCPCS: 99284; 96374; 96375; 36415; 83690; 85025; 82270; 80053; 81001; 71046; 74177; J1200; S0028

== ENCOUNTER 2019-10-13 19:05 | Emergency (ER) | payer SELFPAY ==
[2019-10-13] MEDS ORDERED: OXYCODONE-ACETAMINOPHEN 5-325 MG TABLET PO ONE (19:24)
--- NOTE | 2019-10-13 19:25 | ER Document Report ---
ED Medical Screen (RME) - General Chief Complaint: Insect Bite Stated Complaint: BUMP ON NECK/POSSIBLE INSECT BITE Time Seen by Provider: 10/13/19 19:20 Primary Care Provider: ELODIA HOLLAND MD [Primary Care Provider] - Follow up as needed Information source: Patient Notes: Patient presents complaining of abscess to right side of neck for the past 3 days. Patient reports low-grade fever as well as a previous history of MRSA. I have greeted and performed a rapid initial assessment of this patient. A comprehensive ED assessment and evaluation of the patient, analysis of test results and completion of the medical decision making process will be conducted by additional ED providers. TRAVEL OUTSIDE OF THE [place] IN LAST 30 DAYS: No - Related Data Allergies/Adverse Reactions: hydromorphone HCl [From Dilaudid] Allergy (Mild, Verified 10/13/19 19:23) Facial edema and rash Sulfa (Sulfonamide Antibiotics) Allergy (Mild, Verified 10/13/19 19:23) erythromycin base [Erythromycin Base] Allergy (Unknown, Verified 10/13/19 19:23) cortisone [Cortisone] Allergy (Verified 10/13/19 19:23) Iodinated Contrast Media Allergy (Verified 10/13/19 19:23) Penicillins Allergy (Verified 10/13/19 19:23) prednisone Allergy (Verified 10/13/19 19:23) Past Medical History - Social History Frequency of alcohol use: Rare Drug Abuse: None - Past Medical History Cardiac Medical History: Reports: Hx Hypertension Pulmonary Medical History: Reports: Hx Asthma, Hx Bronchitis, Hx Pneumonia Neurological Medical History: Reports: Hx Migraine. Denies: Hx Parkinson's Disease Renal/ Medical History: Reports: Hx Kidney Stones, Hx Ovarian Cysts. Denies: Hx Peritoneal Dialysis GI Medical History: Reports: Hx Diverticulitis, Hx Gastroesophageal Reflux Disease, Hx Irritable Bowel Musculoskeltal Medical History: Reports Hx Arthritis - back, Reports Hx Musculoskeletal Trauma Skin Medical History: Reports Hx MRSA Psychiatric Medical History: Reports: Hx Anxiety, Hx Bipolar Disorder, Hx Depression, Hx Post Traumatic Stress Disorder Traumatic Medical History: Reports: Hx Fractures - hand Infectious Medical History: Reports: Hx MRSA Past Surgical History: Reports: Hx Abdominal Surgery, Hx Section - x 2, Hx Cholecystectomy, Hx Dilation and Curettage, Hx Gynecologic Surgery - D & C, Hx Hysterectomy, Hx Tubal Ligation. Denies: Hx Pacemaker - Immunizations Immunizations up to date: Yes Hx Diphtheria, Pertussis, Tetanus Vaccination: Yes - 2011 Physical Exam - Vital signs Vitals: Temp Pulse Resp BP Pulse Ox 99.3 F 106 H 20 137/82 H 98 10/13/19 19:12 10/13/19 19:12 10/13/19 19:12 10/13/19 19:12 10/13/19 19:12 - General General appearance: Alert, Anxious - Skin Skin irregularity: Abscess - Right posterior neck area Course - Vital Signs Vital signs: Temp Pulse Resp BP Pulse Ox 99.3 F 106 H 20 137/82 H 98 10/13/19 19:12 10/13/19 19:12 10/13/19 19:12 10/13/19 19:12 10/13/19 19:12 Doctor's Discharge - Discharge Referrals: ELODIA HOLLAND MD [Primary Care Provider] - Follow up as needed
[2019-10-13] MEDS ORDERED: FENTANYL CITRATE INJ/PF 100 MCG/2 ML AMPUL IM ONE (21:13)
[2019-10-13] MEDS ORDERED: ONDANSETRON HCL INJ/PF 4 MG/2 ML SDV IM ONE (21:15)
[2019-10-13] MEDS ORDERED: CLINDAMYCIN HCL 150 MG CAPSULE PO ONE (21:16)
[2019-10-13] MEDS ORDERED: HYDROCODONE/ACETAMINOPHEN 5-325 MG (6 TAB/ER DISP) PO PRN (21:19)
--- NOTE | 2019-10-13 21:21 | ER Document Report ---
Entered by JOAQUÍN COLLAZO SCRIBE 10/13/[id number] Acting as scribe for:ORLY YANG DO ED Skin Rash/Insect Bite/Abscs - General Chief Complaint: Insect Bite Stated Complaint: BUMP ON NECK/POSSIBLE INSECT BITE Time Seen by Provider: 10/13/19 19:20 Primary Care Provider: ELODIA HOLLAND MD [Primary Care Provider] - Follow up as needed Mode of Arrival: Ambulatory Information source: Patient Notes: This 49 year old female patient with a history of MRSA presents to the ED today with complaints of a possible abscess to the back of her neck, just underneath her hairline on the right. Patient states that it started x2 nights ago. Reports subjective fevers. TRAVEL OUTSIDE OF THE [place] IN LAST 30 DAYS: No - Related Data Allergies/Adverse Reactions: hydromorphone HCl [From Dilaudid] Allergy (Mild, Verified 10/13/19 19:23) Facial edema and rash Sulfa (Sulfonamide Antibiotics) Allergy (Mild, Verified 10/13/19 19:23) erythromycin base [Erythromycin Base] Allergy (Unknown, Verified 10/13/19 19:23) cortisone [Cortisone] Allergy (Verified 10/13/19 19:23) Iodinated Contrast Media Allergy (Verified 10/13/19 19:23) Penicillins Allergy (Verified 10/13/19 19:23) prednisone Allergy (Verified 10/13/19 19:23) Past Medical History - General Information source: Patient - Social History Smoking Status: Current Every Day Smoker Cigarette use (# per day): Yes Chew tobacco use (# tins/day): No Smoking Education Provided: No Frequency of alcohol use: Rare Drug Abuse: None Lives with: Family Family History: Reviewed & Not Pertinent, Arthritis, CAD, CVA, DM, Hyperlipidemia, Hypertension, Malignancy, Thyroid Disfunction, Other - Kidney stones Patient has suicidal ideation: No Patient has homicidal ideation: No - Past Medical History Cardiac Medical History: Reports: Hx Hypertension Pulmonary Medical History: Reports: Hx Asthma, Hx Bronchitis, Hx Pneumonia Neurological Medical History: Reports: Hx Migraine Renal/ Medical History: Reports: Hx Kidney Stones, Hx Ovarian Cysts GI Medical History: Reports: Hx Diverticulitis, Hx Gastroesophageal Reflux Disease, Hx Irritable Bowel Musculoskeletal Medical History: Reports Hx Arthritis - back, Reports Hx Musculoskeletal Trauma Skin Medical History: Reports Hx MRSA Psychiatric Medical History: Reports: Hx Anxiety, Hx Bipolar Disorder, Hx Depression, Hx Post Traumatic Stress Disorder Traumatic Medical History: Reports: Hx Fractures - hand Infectious Medical History: Reports: Hx MRSA Past Surgical History: Reports: Hx Abdominal Surgery, Hx Section - x 2, Hx Cholecystectomy, Hx Dilation and Curettage, Hx Gynecologic Surgery - D & C, Hx Hysterectomy, Hx Tubal Ligation. Denies: Hx Pacemaker - Immunizations Immunizations up to date: Yes Hx Diphtheria, Pertussis, Tetanus Vaccination: Yes - 2011 Hx Pneumococcal Vaccination: 11/10/11 Review of Systems - Review of Systems Constitutional: See HPI, Fever EENT: No symptoms reported Cardiovascular: No symptoms reported Respiratory: No symptoms reported Gastrointestinal: No symptoms reported Genitourinary: No symptoms reported Female Genitourinary: No symptoms reported Musculoskeletal: No symptoms reported Skin: See HPI, Other - Abscess Hematologic/Lymphatic: No symptoms reported Neurological/Psychological: No symptoms reported -: Yes All other systems reviewed and negative Physical Exam - Vital signs Vitals: Temp Pulse Resp BP Pulse Ox 99.3 F 106 H 20 137/82 H 98 10/13/19 19:12 10/13/19 19:12 10/13/19 19:12 10/13/19 19:12 10/13/19 19:12 - General General appearance: Alert In distress: None - HEENT Head: Normocephalic, Atraumatic Eyes: Normal Pupils: PERRL Neck: Other - Abscess - Respiratory Respiratory status: No respiratory distress Chest status: Nontender Breath sounds: Normal Chest palpation: Normal - Cardiovascular Rhythm: Regular Heart sounds: Normal auscultation Murmur: No Friction rub: No Gallop: None auscultated - Abdominal Inspection: Normal Distension: No distension Bowel sounds: Normal Tenderness: Nontender - Abdomen soft Organomegaly: No organomegaly - Back Back: Normal, Nontender - Extremities General upper extremity: Normal inspection General lower extremity: Normal inspection. No: Edema - Neurological Neuro grossly intact: Yes Orientation: AAOx4 Esau Coma Scale Eye Opening: Spontaneous Esau Coma Scale Verbal: Oriented Esau Coma Scale Motor: Obeys Commands Esau Coma Scale Total: 15 - Psychological Associated symptoms: Normal affect, Normal mood - Skin Skin irregularity: Abscess Location of irregularity: Neck - Located about 4-5 cm from midline on the right side, just under the hairline Character of irregularity: Other - 2 cm in circumference Irregularity with: Tenderness, Warmth, Induration Course - Re-evaluation Re-evalutation: 10/13/19 21:19 MDM 49 year old female with 1 day or so of irritation to right posterior scalp at hairline. Perhaps 2 cm area of tenderness and induration. No fluctuence. No need for sono in my opinion as 2 cm is generous in estimation of size. Will have close follow up with Dr. Lopez and she has been provided with return precautions. She understands return precautions. - Vital Signs Vital signs: Temp Pulse Resp BP Pulse Ox 98.7 F 88 18 128/88 H 98 10/13/19 21:45 10/13/19 21:45 10/13/19 21:45 10/13/19 21:45 10/13/19 21:45 Discharge - Discharge Clinical Impression: Abscess Condition: Stable Disposition: HOME, SELF-CARE Instructions: Abscess (OM), Oral Narcotic Medication (OM) Additional Instructions: Call Dr. Lopez for follow up tomorrow. Return here for increased pain, swelling, fever, other problems or concerns. Prescriptions: Clindamycin HCl 300 mg PO TID #30 capsule Referrals: ELODIA HOLLAND MD [Primary Care Provider] - Follow up as needed I personally performed the services described in the documentation, reviewed and edited the documentation which was dictated to the scribe in my presence, and it accurately records my words and actions.
[2019-10-13 21:46] VITALS: BP 128/88
== END 2019-10-13 21:55 | disposition home or self-care (01) ==
LOC: ER 19:05
DX: L02.11 Cutaneous abscess of neck (principal); F17.210 Nicotine dependence, cigarettes, uncomplicated; I10 Essential (primary) hypertension; Z86.14 Personal history of Methicillin resistant Staphylococcus aureus infection; Z88.2 Allergy status to sulfonamides; Z88.3 Allergy status to other anti-infective agents; Z88.0 Allergy status to penicillin
CPT/HCPCS: 99283; 96372; 96374; J3010; J2405

== ENCOUNTER 2019-10-20 12:18 | Emergency (ER) | payer SELFPAY ==
[2019-10-20 12:26] VITALS: BP 133/76
[2019-10-20] MEDS ORDERED: LIDOCAINE 1% INJ-PF (10 MG/ML) 30 ML SDV INJ ONE (12:39)
[2019-10-20] MEDS ORDERED: CEFTRIAXONE INJ 1000 MG VIAL IM ONE (12:39)
--- NOTE | 2019-10-20 12:44 | ER Document Report ---
HPI - HPI Time Seen by Provider: 10/20/19 12:30 Notes: 49-year-old female presents emergency room for evaluation of a spider bite that she was seen in this emergency room for on October 12, was placed on oral clindamycin. States that symptoms are somewhat better, she still has a spider bite. States she only has 1 day left of the clindamycin. States that she has been applying hot compresses to site. Slowly getting better. She does have a history of MRSA. Denies fevers, chills, chest pain,palpitations, shortness of breath, dyspnea, nausea, vomiting, diarrhea, abdominal pain, hematuria,blurred vision, double vision, loss of vision, speech changes, LH, dizziness, syncope, headaches, wheezing, ST, URI, neck pain, weakness, bowel or bladder dysfunction, saddle anesthesia, numbness or tingling in bilateral upper or lower extremities equally, muscle paralysis, weakness in bilateral upper or lower extremities equally or rash. Denies IV drug use. MEDICATIONS: I agree with the patient medications as charted by the RN. ALLERGIES: I agree with the allergies as charted by the RN. PAST MEDICAL HISTORY/PAST SURGICAL HISTORY: Reviewed and agree as charted by RN. SOCIAL HISTORY: Reviewed and agree as charted by RN. FAMILY HISTORY: No significant familial comorbid conditions directly related to patient complaint EXAM: Reviewed vital signs as charted by RN. REVIEW OF SYSTEMS:reviewed vital signs by RN CONSTITUTIONAL : Denies fever, chills, or sweats. Denies recent illness. EENT: Denies eye, ear, throat, or mouth pain or symptoms. Denies nasal or sinus congestion or discharge. Denies throat, tongue, or mouth swelling or difficulty swallowing. CARDIOVASCULAR: Denies chest pain. Denies palpitations or racing or irregular heart beat. Denies ankle edema. RESPIRATORY: Denies cough, cold, or chest congestion. Denies shortness of breath, difficulty breathing, or wheezing. GASTROINTESTINAL: Denies abdominal pain or distention. Denies nausea, vomiting, or diarrhea. Denies blood in vomitus, stools, or per rectum. Denies black, tarry stools. Denies constipation. GENITOURINARY: Denies difficulty urinating, painful urination, burning, frequency, blood in urine, or discharge. FEMALE GENITOURINARY: Denies vaginal bleeding, heavy or abnormal periods, irregular periods. Denies vaginal discharge or odor. MUSCULOSKELETAL: Denies back or neck pain or stiffness. Denies joint pain or swelling. SKIN: Spider bite to right posterior aspect of neck denies rash, lesions or sores. HEMATOLOGIC : Denies easy bruising or bleeding. LYMPHATIC: Denies swollen, enlarged glands. NEUROLOGICAL: Denies confusion or altered mental status. Denies passing out or loss of consciousness. Denies dizziness or lightheadedness. Denies headache. Denies weakness or paralysis or loss of use of either side. Denies problems with gait or speech. Denies sensory loss, numbness, or tingling. Denies seizures. PSYCHIATRIC: Denies anxiety or stress. Denies depression, suicidal ideation, or homicidal ideation. ALL OTHER SYSTEMS REVIEWED AND NEGATIVE. PHYSICAL EXAMINATION: GENERAL: Well-appearing, well-nourished and in no acute distress. HEAD: Atraumatic, normocephalic. EYES: Pupils equal round and reactive to light, extraocular movements intact, conjunctiva are normal. ENT: Nares patent, oropharynx clear without exudates. Moist mucous membranes. NECK: Normal range of motion, supple without lymphadenopathy LUNGS: Breath sounds clear to auscultation bilaterally and equal. No wheezes rales or rhonchi. HEART: Regular rate and rhythm without murmurs ABDOMEN: Soft, nontender, nondistended abdomen. No guarding, no rebound. No masses appreciated. Female : deferred Musculoskeletal: Normal range of motion, no pitting or edema. No cyanosis. NEUROLOGICAL: Cranial nerves grossly intact. Normal speech, normal gait. Normal sensory, motor exams PSYCH: Normal mood, normal affect. SKIN: Warm, Dry, normal turgor, no rashes or lesions noted. right posterior aspect of neck with a erythemic hard mass approximately 1 cm x 1 cm, no surrounding erythema erythema induration or warmth to touch. No fluctuance to site. Dictation was performed using [employer] voice recognition software - REPRODUCTIVE Reproductive: DENIES: : Past Medical History - General Information source: Patient - Social History Smoking Status: Unknown if Ever Smoked Family History: Reviewed & Not Pertinent, Arthritis, CAD, CVA, DM, Hyperlipidemia, Hypertension, Malignancy, Thyroid Disfunction, Other - Kidney stones - Past Medical History Cardiac Medical History: Reports: Hx Hypertension Pulmonary Medical History: Reports: Hx Asthma, Hx Bronchitis, Hx Pneumonia Neurological Medical History: Reports: Hx Migraine. Denies: Hx Parkinson's Disease Renal/ Medical History: Reports: Hx Kidney Stones, Hx Ovarian Cysts. Denies: Hx Peritoneal Dialysis GI Medical History: Reports: Hx Diverticulitis, Hx Gastroesophageal Reflux Disease, Hx Irritable Bowel Musculoskeletal Medical History: Reports Hx Arthritis - back, Reports Hx Musculoskeletal Trauma Skin Medical History: Reports Hx MRSA Psychiatric Medical History: Reports: Hx Anxiety, Hx Bipolar Disorder, Hx Depression, Hx Post Traumatic Stress Disorder Traumatic Medical History: Reports: Hx Fractures - hand Infectious Medical History: Reports: Hx MRSA Past Surgical History: Reports: Hx Abdominal Surgery, Hx Section - x 2, Hx Cholecystectomy, Hx Dilation and Curettage, Hx Gynecologic Surgery - D & C, Hx Hysterectomy, Hx Tubal Ligation. Denies: Hx Pacemaker - Immunizations Immunizations up to date: Yes Hx Diphtheria, Pertussis, Tetanus Vaccination: Yes - 2011 Hx Pneumococcal Vaccination: 11/10/11 Vertical Provider Document - CONSTITUTIONAL Agree With Documented VS: Yes Exam Limitations: No Limitations General Appearance: WD/WN - INFECTION CONTROL TRAVEL OUTSIDE OF THE [place] IN LAST 30 DAYS: No Course - Re-evaluation Re-evalutation: 10/20/19 12:47 Afebrile vital stable no distress. Nurses notes reviewed. Patient's cellulitis is becoming better from spider bite. She has been taking oral clindamycin 300 mg 3 times daily, states she only has 1 day left but still has a hard mass. Patient states she applied heat a few times. We will give patient a gram of Rocephin IM as well as oral doxycycline twice a day for 10 days. Discussed with patient that she does need follow-up with her PCP for reevaluation and 24 to 48 hours for reevaluation. Discussed the patient that there is no fluctuance to site for incision and drainage. Discussed applying heat 20 minutes on 20 minutes off several times a day. Patient verbalized an understanding of this plan of care. After performing a Medical Screening Examination, I estimate there is LOW risk for OPEN FRACTURE, COMPARTMENT SYNDROME, TENDON RUPTURE, ACUTE NEUROVASCULAR INJURY, or RETAINED FOREIGN BODY, thus I consider the discharge disposition reasonable. Also, there is no evidence or peritonitis, sepsis, or toxicity. I have reevaluated this patient multiple times and no significant life threatening changes are noted. The patient and I have discussed the d iagnosis and risks, and we agree with discharging home with close follow-up with the understanding that symptoms and presentations can change. We also discussed returning to the Emergency Department immediately if new or worsening symptoms occur. We have discussed the symptoms which are most concerning (e.g., changing or worsening pain, fever, numbness, weakness, cool or painful digits) that neces sitate immediate return. - Vital Signs Vital signs: Temp Pulse Resp BP Pulse Ox 99.1 F 100 18 133/76 H 97 10/20/19 12:24 10/20/19 12:24 10/20/19 12:24 10/20/19 12:24 10/20/19 12:24 Discharge - Discharge Clinical Impression: Cellulitis Qualifiers: Site of cellulitis: neck Qualified Code(s): L03.221 - Cellulitis of neck Condition: Stable Disposition: HOME, SELF-CARE Instructions: Cellulitis ([facility]), MRSA Cellulitis ([facility]), Rocephin ([facility]), Doxycycline ([facility]) Additional Instructions: Given 1 g Rocephin IM today. Please finish your clindamycin and then start taking doxycycline twice a day as directed with food. I did prescribe you Diflucan as requested. You need to take the antibiotics as prescribed. Do not stop even if the rash goes away until you have completed all the antibiotics. The area of redness was traced out here in the emergency department with a marking pen. You need to return to emergency department if the redness spreads outside of this area by more than 2 cm in any direction. You should also return if you develop fevers with temperature greater than 101, persistent vomiting, worsening pain, or have any other symptoms that are concerning to you. Please follow-up with your primary care provider within 24 to 48 hours for reevaluation. Return immediately for any new or worsening symptoms. Follow up with primary care provider, call tomorrow to make followup appointment. Prescriptions: Fluconazole [Diflucan] 150 mg PO ONCE PRN #2 tablet PRN Reason: Doxycycline Hyclate 100 mg PO BID #20 tablet.dr Referrals: ELODIA HOLLAND MD [Primary Care Provider] - 10/22/19
== END 2019-10-20 13:12 | disposition home or self-care (01) ==
LOC: ER 12:18
DX: L03.221 Cellulitis of neck (principal); S10.96XD Insect bite of unspecified part of neck, subsequent encounter; W57.XXXD Bitten or stung by nonvenomous insect and other nonvenomous arthropods, subsequent encounter
CPT/HCPCS: 99283; 96372; J3490; J0696

== ENCOUNTER 2019-12-25 02:16 | Emergency (ER) | payer SELFPAY ==
[2019-12-25] MEDS ORDERED: ACETAMINOPHEN 325 MG TABLET PO ONE (02:38)
[2019-12-25] MEDS ORDERED: ACETAMINOPHEN 325 MG TABLET ONE (02:39)
[2019-12-25 03:02] LABS: ABSOLUTE BASOPHILS # (AUTO) 0.1 10^3/uL (0.0-0.2); ABSOLUTE EOSINOPHILS # (AUTO) 0.2 10^3/uL (0.0-0.6); ABSOLUTE LYMPHOCYTES (AUTO) 3.2 10^3/uL (0.5-4.7); ABSOLUTE MONOCYTES (AUTO) 0.9 10^3/uL (0.1-1.4); ABSOLUTE NEUT (AUTO) 7.7 10^3/uL (1.7-8.2); BASOPHILS % (AUTO) 0.7 % (0-2); EOSINOPHILS % (AUTO) 1.6 % (0-6); HEMATOCRIT 40.5 % (36.0-47.0); HEMOGLOBIN 14.5 g/dL (12.0-15.5); LYMPHOCYTES % (AUTO) 26.7 % (13-45); MEAN CORPUSCULAR HEMOGLOBIN 31.2 pg (27.0-33.4); MEAN CORPUSCULAR HGB CONC 35.8 g/dL (32.0-36.0); MEAN CORPUSCULAR VOLUME 87 fl (80-97); MONOCYTES % (AUTO) 7.3 % (3-13); PLATELET COUNT 342 10^3/uL (150-450); RED BLOOD COUNT 4.64 10^6/uL (3.72-5.28); RED CELL DISTRIBUTION WIDTH 13.3 % (11.5-14.0); SEGMENTED NEUTROPHILS % (AUTO) 63.7 % (42-78); TOTAL CELLS COUNTED % (AUTO) 100 %; WHITE BLOOD COUNT 12.1 10^3/uL (4.0-10.5)
[2019-12-25 04:10] LABS: ALBUMIN 4.2 g/dL (3.5-5.0); ALKALINE PHOSPHATASE 58 U/L (38-126); ANION GAP 12 (5-19); ASPARTATE AMINO TRANSFERASE 16 U/L (14-36); BILIRUBIN,DIRECT 0.3 mg/dL (0.0-0.4); BILIRUBIN,TOTAL 0.4 mg/dL (0.2-1.3); BLOOD UREA NITROGEN 18 mg/dL (7-20); CALCIUM 9.2 mg/dL (8.4-10.2); CARBON DIOXIDE 21 mmol/L (22-30); CHLORIDE 108 mmol/L (98-107); CREATINE KINASE 108 U/L (30-135); GLUCOSE 114 mg/dL (75-110); POTASSIUM 3.7 mmol/L (3.6-5.0); TOTAL PROTEIN 7.1 g/dL (6.3-8.2)
[2019-12-25] MEDS ORDERED: MORPHINE SULFATE 10 MG/ML INJ IV ONE (04:18)
[2019-12-25 04:22] LABS: CREATINE KINASE MB 0.89 ng/mL (<4.55)
[2019-12-25] MEDS ORDERED: ONDANSETRON HCL INJ/PF 4 MG/2 ML SDV IV ONE (04:23)
[2019-12-25 04:24] LABS: TROPONIN I < 0.012 ng/mL
--- NOTE | 2019-12-25 04:39 | ER Document Report ---
ED Cardiac - General Chief Complaint: Chest Pain Stated Complaint: CHEST PAIN Time Seen by Provider: 12/25/19 02:44 Primary Care Provider: VIDHYA REYES MD [ACTIVE STAFF] - Follow up tomorrow LELIA HODGE MD [ACTIVE STAFF] - Follow up tomorrow LUDWIN GEIGER MD [ACTIVE STAFF] - Follow up tomorrow CARLOS EDUARDO BATISTA MD [ACTIVE PROVISIONAL STAFF] - Follow up tomorrow Notes: Patient is a 49-year-old female presents emergency department with a chief complaint of chest pain. Chest pain woke her up in her sleep around 230 this morning and she states it is in her mid chest and radiates to her back. Patient is an everyday smoker. Patient states that she has been under a lot of stress lately due to being collected from her house. Although the patient expressed self-harm to nursing staff, patient denies any suicidal or homicidal ideation when I asked her. TRAVEL OUTSIDE OF THE [place] IN LAST 30 DAYS: No - Related Data Allergies/Adverse Reactions: hydromorphone HCl [From Dilaudid] Allergy (Mild, Verified 10/20/19 12:32) Facial edema and rash Sulfa (Sulfonamide Antibiotics) Allergy (Mild, Verified 10/20/19 12:32) erythromycin base [Erythromycin Base] Allergy (Unknown, Verified 10/20/19 12:32) cortisone [Cortisone] Allergy (Verified 10/20/19 12:32) Iodinated Contrast Media Allergy (Verified 10/20/19 12:32) Penicillins Allergy (Verified 10/20/19 12:32) prednisone Allergy (Verified 10/20/19 12:32) Past Medical History - General Information source: Patient - Social History Smoking Status: Current Every Day Smoker Family History: Reviewed & Not Pertinent, Arthritis, CAD, CVA, DM, Hyperlipidemia, Hypertension, Malignancy, Thyroid Disfunction, Other - Kidney stones - Past Medical History Cardiac Medical History: Reports: Hx Hypertension Pulmonary Medical History: Reports: Hx Asthma, Hx Bronchitis, Hx Pneumonia Neurological Medical History: Reports: Hx Migraine. Denies: Hx Parkinson's D isease Renal/ Medical History: Reports: Hx Kidney Stones, Hx Ovarian Cysts. Denies: Hx Peritoneal Dialysis GI Medical History: Reports: Hx Diverticulitis, Hx Gastroesophageal Reflux Disease, Hx Irritable Bowel Musculoskeletal Medical History: Reports Hx Arthritis - back, Reports Hx Musculoskeletal Trauma Skin Medical History: Reports Hx MRSA Psychiatric Medical History: Reports: Hx Anxiety, Hx Bipolar Disorder, Hx Depression, Hx Post Traumatic Stress Disorder Traumatic Medical History: Reports: Hx Fractures - hand Infectious Medical History: Reports: Hx MRSA Past Surgical History: Reports: Hx Abdominal Surgery, Hx Section - x 2, Hx Cholecystectomy, Hx Dilation and Curettage, Hx Gynecologic Surgery - D & C, Hx Hysterectomy, Hx Tubal Ligation. Denies: Hx Pacemaker - Immunizations Immunizations up to date: Yes Hx Diphtheria, Pertussis, Tetanus Vaccination: Yes - 2011 Hx Pneumococcal Vaccination: 11/10/11 Review of Systems - Review of Systems Notes: REVIEW OF SYSTEMS: CONSTITUTIONAL : Denies recent illness. Denies recent unintentional weight loss. Denies fever, chills, or sweats. EENT: Denies eye, ear, throat, or mouth pain, discharge, or symptoms. Denies nasal or sinus congestion. CARDIOVASCULAR: See HPI. RESPIRATORY: Denies shortness of breath, cough, congestion, difficulty breathing, or wheezing. GASTROINTESTINAL: Denies nausea, vomiting, and diarrhea. Denies abdominal pain. Denies constipation. GENITOURINARY: Denies difficulty urinating, burning, blood in urine, urgency or frequency. MUSCULOSKELETAL: Denies neck and back pain. Denies joint pain or swelling. SKIN: Denies rash, itchiness, or lesions HEMATOLOGIC : Denies easy bruising or bleeding. LYMPHATIC: Denies swollen, painful, enlarged glands. NEUROLOGICAL: Denies no numbness or tingling denies weakness. Denies headache. Denies altered mental status. Denies alteration in speech. PSYCHIATRIC: See HPI. All other systems reviewed and negative. Physical Exam - Vital signs Vitals: Resp Pulse Ox 13 97 12/25/19 02:36 12/25/19 02:36 - Notes Notes: PHYSICAL EXAMINATION: GENERAL: Appears well, healthy, well-nourished, no acute distress. HEAD: Normocephalic, atraumatic. EYES: PERRL, conjunctiva normal, all extraocular movements intact, sclera nonicteric ENT: Moist mucous membranes. NECK: Supple, no noticeable swelling, redness, rash. Normal range of motion. LUNGS: Equal breath sounds bilaterally and clear to auscultation. No wheezes rales or rhonchi. CARDIOVASCULAR: S1-S2, regular rate, regular rhythm. Radial pulses 2+, normal. ABDOMEN: Normoactive bowel sounds. Soft, nontender, no guarding, no rebound tenderness, and no masses palpated. EXTREMITIES: Normal strength and range of motion, no pitting or edema. No cyanosis. NEUROLOGICAL: Moves all extremities upon command. Strength 5/5 in all extremities. PSYCH: Normal mood, normal affect. SKIN: Warm, dry. No rash, lesions, ulcerations noted. Normal skin turgor. Course - Re-evaluation Re-evalutation: 12/25/19 04:36 Hematology shows a slight leukocytosis of 12,100. Chemistries show a slightly low CO2. LFTs are unremarkable. Troponin and CK are unremarkable. Lipase is still pending. The patient has chosen to leave the facility against medical advice. The relevant issues have been reviewed and discussed with the patient and family at the bedside. At the time of this assessment there is no indication for involuntary commitment. The patient is alert, oriented, and able to express clearly their reasoning for not wanting to remain in the emergency department for further treatment. The patient is not clinically psychotic, intoxicated, and denies and suicidal ideation. Differential or suspected diagnoses based on medical screening exam: Acute myocardial infarction, pulmonary emboli. The patient is aware of the concerning diagnoses and acknowledges understanding of the reasons for the following recommendations: To stay in the hospital and have a second troponin drawn to rule out NSTEMI The following recommendations/services were offered and refused: Repeat troponin. The following risks were explained: , permanent disability, loss of function, myocardial infarction. Clinical impression: Patient is competent to make decisions regarding the medical that is being offered. - Vital Signs Vital signs: Temp Pulse Resp BP Pulse Ox 98.3 F 77 18 112/75 99 12/25/19 05:18 12/25/19 05:18 12/25/19 05:18 12/25/19 05:18 12/25/19 05:18 - Laboratory Result Diagrams: 12/25/19 02:30 12/25/19 03:38 Laboratory results interpreted by me: 12/25/19 12/25/19 02:30 03:38 WBC 12.1 H Chloride 108 H Carbon Dioxide 21 L Glucose 114 H - EKG Interpretation by Me Additional EKG results interpreted by me: 12/25/19 02:41 Sinus rhythm. Rate 75. IA 152; QRS 100; QT 400; QTc 447. No ST elevations or depressions noted. No acute change from previous EKG done on 07/03/2018. Discharge - Discharge Clinical Impression: Left against medical advice Chest pain Qualifiers: Chest pain type: unspecified Qualified Code(s): R07.9 - Chest pain, unspecified Condition: Stable Disposition: AGAINST MEDICAL ADVICE Additional Instructions: You were seen today in the emergency department for chest pain. You are deciding to leave AGAINST MEDICAL ADVICE. Your work-up is not complete. Without having a complete work-up, you could be having a heart attack and it not be detected, you can have worsening chest pain, or you can . I highly recommend that you stay to have a repeat troponin drawn. Follow-up with 1 of the clinics in regards to this visit. If you have worsening chest pain, return to the emergency department immediately. Follow-up with 1 of the staff development manager below. Referrals: LUDWIN GEIGER MD [ACTIVE STAFF] - Follow up tomorrow LELIA HODGE MD [ACTIVE STAFF] - Follow up tomorrow CARLOS EDUARDO BATISTA MD [ACTIVE PROVISIONAL STAFF] - Follow up tomorrow VIDHYA REYES MD [ACTIVE STAFF] - Follow up tomorrow
--- NOTE | 2019-12-25 04:56 | RADIOLOGY REPORT (SQ) ---
EXAM DESCRIPTION: XR CHEST 1 VIEW COMPLETED DATE/TME: 12/25/2019 02:17 CLINICAL HISTORY: 49 years, Female, cp COMPARISON: 07/03/2018 chest NUMBER OF VIEWS: 1 TECHNIQUE: Portable chest LIMITATIONS: None. FINDINGS: The heart size is normal. Lungs are clear. No pneumothorax IMPRESSION: Negative chest copyright 2010 [employer]- All Rights Reserved
[2019-12-25 05:18] VITALS: BP 112/75
--- NOTE | 2019-12-25 07:53 | EKG REPORT ---
SEVERITY:- BORDERLINE ECG - SINUS RHYTHM BORDERLINE R WAVE PROGRESSION, ANTERIOR LEADS BORDERLINE T ABNORMALITIES, ANTERIOR LEADS : Confirmed by: Yan Miller MD 25-Dec-2019 07:53:22
== END 2019-12-25 05:10 | disposition left against medical advice (07) ==
LOC: ER 02:16
DX: R07.9 Chest pain, unspecified (principal); M54.9 Dorsalgia, unspecified; F17.200 Nicotine dependence, unspecified, uncomplicated; I10 Essential (primary) hypertension; Z86.14 Personal history of Methicillin resistant Staphylococcus aureus infection
CPT/HCPCS: 93005; 99285; 96374; 36415; 82553; 82550; 83690; 85025; 80053; 84484; 71045; 93010; J2405